=== PATIENT | male | born 1940 | race Caucasian/White ===

== ENCOUNTER 2016-08-21 02:59 | Inpatient (IN) | payer MEDICARE ==
[2016-08-21] VITALS (26 sets, daily range): BP systolic 78–116; BP diastolic 47–65; PULSE 81–93; RESP 15–25; TEMP 97.9–99.3; O2SAT 94–100
[~2016-08-21] VITALS: Ht 182.9 cm; Wt 129.0 kg
[2016-08-21] MEDS ORDERED: SODIUM CHLOR 0.9% 1000 ML INJ 1,000 ML IV SCH (03:03)
[2016-08-21] MEDS ORDERED: SODIUM CHLORIDE 0.9% FLUSH 5 ML FLUSH IVF PRN (03:15)
[2016-08-21] MEDS ORDERED: NOREPINEPHRINE 4 MG/4 ML AMP ONE (03:35)
[2016-08-21 03:38] LABS: AUTOMATED NEUTROPHIL # 11.6 TH/MM3 (1.8-7.7); BASOPHIL % 0.4 % (0.0-2.0); EOSINOPHIL # 0.1 TH/MM3 (0-0.4); EOSINOPHIL % 0.8 % (0.0-4.0); HEMATOCRIT 26.4 % (39.0-51.0); HEMO FLAGS DIFF FINAL; LYMPH % 8.5 % (9.0-44.0); LYMPHOCYTE # 1.2 TH/MM3 (1.0-4.8); MEAN CELL VOLUME 90.7 FL (80.0-100.0); MEAN CORPUSCULAR HEMOGLOBIN 29.9 PG (27.0-34.0); MONO % 5.1 % (0.0-8.0); NEUT % 85.2 % (16.0-70.0); PLATELET COUNT 195 TH/MM3 (150-450); RED BLOOD COUNT 2.91 MIL/MM3 (4.50-5.90); RED CELL DISTRIBUTION WIDTH 17.3 % (11.6-17.2); WHITE BLOOD COUNT 13.7 TH/MM3 (4.0-11.0)
[2016-08-21 03:47] LABS: APTT (PATIENT) 21.2 SEC (24.3-30.1); INTERNATIONAL NORMALIZED RATIO 1.1 RATIO; PROTHROMBIN TIME - PATIENT 12.2 SEC (9.8-11.6)
--- NOTE | 2016-08-21 03:57 | RADRPT ---
EXAM DATE/TIME: 08/21/2016 03:47 [facility] COMPARISON: No previous studies available for comparison. INDICATIONS : Pt short of breath. MEDICAL HISTORY : None. SURGICAL HISTORY : None. ENCOUNTER: Initial ACUITY: 1 day PAIN SCORE: 8/10 LOCATION: Bilateral chest FINDINGS: The cardiac silhouette is normal in transverse diameter. Median sternotomy wires are present. There a re findings of congestive heart failure with interstitial and alveolar opacity bilaterally. A small l eft sided effusion is present. CONCLUSION: 1. Cardiomegaly and findings of congestive heart failure. Vasu Montanez MD on August 21, 2016 at 3:56 Board Certified Radiologist. This report was verified electronically.
[2016-08-21 04:05] LABS: ALT (GPT) 64 U/L (12-78); ANION GAP 7 MEQ/L (5-15); AST (GOT) 23 U/L (15-37); BLOOD UREA NITROGEN 77 MG/DL (7-18); CHLORIDE 114 MEQ/L (98-107); GLOMERULAR FILTRATION RATE 30 ML/MIN (>89); POTASSIUM 4.5 MEQ/L (3.5-5.1); SODIUM (NA) 149 MEQ/L (136-145)
[2016-08-21 04:07] LABS: ALKALINE PHOSPHATASE 73 U/L (45-117); TOTAL BILIRUBIN ADULT 2.4 MG/DL (0.2-1.0)
[2016-08-21] MEDS ORDERED: VITA1000 PO (04:16)
[2016-08-21] MEDS ORDERED: FURO20TA PO (04:16)
[2016-08-21] MEDS ORDERED: XARE20TA PO (04:16)
[2016-08-21] MEDS ORDERED: ATOR10TA15 PO (04:16)
[2016-08-21] MEDS ORDERED: ENAL20TA PO (04:16)
[2016-08-21] MEDS ORDERED: ALLO300T2 PO (04:16)
[2016-08-21] MEDS ORDERED: ASCO500T PO (04:16)
[2016-08-21] MEDS ORDERED: MULT-125 PO (04:16)
[2016-08-21] MEDS ORDERED: AMLO10TA2 PO (04:16)
--- NOTE | 2016-08-21 05:14 | PD ---
HPI Chief Complaint: GI Complaint Time Seen by Provider: 03:03 Travel History International Travel<30 days: No Contact w/Intl Traveler<30days: No Traveled to known affect area: No History of Present Illness HPI Patient 75-year-old male presents emergency department for complaints of blood in the stool. Patient brought in by EMS apparently halfway staff went to check in the patient and found approximately "750 mg" of blood and clots in his diaper. Patient is on Zarrella blood. Apparently the patient was just discharged from a [facility] facility after a heart attack and had just arrived in the halfway yesterday for rehabilitation. Patient is slightly altered on arrival with just some mild confusion. GCS of 14. He is unable to give me his past medical history at this time. PFSH Past Medical History Atrial Fibrillation: Yes Cardiovascular Problems: Yes High Cholesterol: Yes Chest Pain: Yes Congestive Heart Failure: Yes Coronary Artery Disease: Yes Diabetes: Yes Patient Takes Glucophage: No Diminished Hearing: Yes GERD: Yes Gout: Yes Hypertension: Yes Myocardial Infarction: Yes Tetanus Vaccination: Unknown Past Surgical History Appendectomy: Yes Coronary Artery Bypass Graft: Yes Family History Family Myocardial Infarction: Yes Social History Alcohol Use: No Tobacco Use: No Substance Use: No Allergies-Medications (Allergen,Severity, Reaction): Coded Allergies: Cefuroxime sodium (Verified Allergy, Unknown, 08/21/16) Levaquin (Verified Allergy, Unknown, 08/21/16) Reported Meds & Prescriptions Reported Meds & Active Scripts Active Reported Centrum Men (Multiple Vitamins-Minerals) 1 Tab Tab 1 Tab PO DAILY Vitamin D-1000 (Cholecalciferol) 1,000 Unit Tab 1,000 Units PO DAILY Ascorbic Acid 500 Mg Tab 500 Mg PO DAILY Xarelto (Rivaroxaban) 20 Mg Tab 20 Mg PO DAILY Furosemide 20 Mg Tab 20 Mg PO DAILY Enalapril (Enalapril Maleate) 20 Mg Tab 20 Mg PO DAILY Atorvastatin (Atorvastatin Calcium) 10 Mg Tab 10 Mg PO HS Amlodipine (Amlodipine Besylate) 10 Mg Tab 10 Mg PO DAILY Allopurinol 300 Mg Tab 300 Mg PO DAILY Review of Systems Except as stated in HPI: all other systems reviewed are Neg Physical Exam Narrative GENERAL: Well-developed, pale but in no apparent distress. SKIN: Warm and dry. HEAD: Atraumatic. Normocephalic. EYES: Pupils equal and round. No scleral icterus. No injection or drainage. ENT: No nasal bleeding or discharge. Mucous membranes pink and moist. NECK: Trachea midline. No JVD. CARDIOVASCULAR: Regular rate and rhythm. No murmur appreciated. RESPIRATORY: No accessory muscle use. Clear to auscultation. Breath sounds equal bilaterally. GASTROINTESTINAL: Abdomen soft, non-tender, midline distended particularly the left side. Hepatic and splenic margins not palpable. Rectal exam: There is blood and clot at the external anal sphincter. No hemorrhoids are observed. Patient did have bowel movement in the emergency department which was maroon in color. MUSCULOSKELETAL: No obvious deformities. No clubbing. No cyanosis. No edema. NEUROLOGICAL: Awake and alert oriented to self only.. No moves all 4 extremities to command. PSYCHIATRIC: Deferred. Data Data Last Documented VS Vital Signs Date Time Temp Pulse Resp B/P Pulse Ox O2 Delivery O2 Flow Rate FiO2 08/21/16 04:30 82 17 116/53 100 Nasal Cannula 2 08/21/16 04:15 99.2 Orders Complete Blood Count With Diff (08/21/16 03:03) Comprehensive Metabolic Panel (08/21/16 03:03) Lipase (08/21/16 03:03) Lactic Acid (08/21/16 03:03) Prothrombin Time / Inr (Pt) (08/21/16 03:03) Act Partial Throm Time (Ptt) (08/21/16 03:03) Urinalysis - C+S If Indicated (08/21/16 03:03) Iv Access Insert/Monitor (08/21/16 03:03) Ecg Monitoring (08/21/16 03:03) Oximetry (08/21/16 03:03) Sodium Chlor 0.9% 1000 Ml Inj (Ns 1000 M (08/21/16 03:03) Sodium Chloride 0.9% Flush (Ns Flush) (08/21/16 03:15) Electrocardiogram (08/21/16 03:03) Type And Screen (08/21/16 03:03) Red Blood Cells (Rbc) (08/21/16 03:03) Ammonia (08/21/16 03:06) Chest, Single Ap (08/21/16 ) Norepinephrine Inj (Levophed Inj) (08/21/16 03:35) Admit Order (Ed Use Only) (08/21/16 ) Consult Gastroenterology (08/21/16 ) (Hub Use Only)Inp Phy Cons/Ref (08/21/16 ) Labs Laboratory Tests Test 08/21/16 08/21/16 08/21/16 08/21/16 03:15 03:17 03:25 03:48 White Blood Count 13.7 TH/MM3 Red Blood Count 2.91 MIL/MM3 Hemoglobin 8.7 GM/DL Hematocrit 26.4 % Mean Corpuscular Volume 90.7 FL Mean Corpuscular Hemoglobin 29.9 PG Mean Corpuscular Hemoglobin 33.0 % Concent Red Cell Distribution Width 17.3 % Platelet Count 195 TH/MM3 Mean Platelet Volume 9.3 FL Neutrophils (%) (Auto) 85.2 % Lymphocytes (%) (Auto) 8.5 % Monocytes (%) (Auto) 5.1 % Eosinophils (%) (Auto) 0.8 % Basophils (%) (Auto) 0.4 % Neutrophils # (Auto) 11.6 TH/MM3 Lymphocytes # (Auto) 1.2 TH/MM3 Monocytes # (Auto) 0.7 TH/MM3 Eosinophils # (Auto) 0.1 TH/MM3 Basophils # (Auto) 0.0 TH/MM3 CBC Comment DIFF FINAL Differential Comment Prothrombin Time 12.2 SEC Prothromb Time International 1.1 RATIO Ratio Activated Partial 21.2 SEC Thromboplast Time Sodium Level 149 MEQ/L Potassium Level 4.5 MEQ/L Chloride Level 114 MEQ/L Carbon Dioxide Level 28.0 MEQ/L Anion Gap 7 MEQ/L Blood Urea Nitrogen 77 MG/DL Creatinine 2.19 MG/DL Estimat Glomerular Filtration 30 ML/MIN Rate Random Glucose 81 MG/DL Calcium Level 8.0 MG/DL Total Bilirubin 2.4 MG/DL Aspartate Amino Transf 23 U/L (AST/SGOT) Alanine Aminotransferase 64 U/L (ALT/SGPT) Alkaline Phosphatase 73 U/L Total Protein 5.5 GM/DL Albumin 2.5 GM/DL Lipase 560 U/L Blood Type A POSITIVE A POSITIVE Antibody Screen NEGATIVE Crossmatch Leukocyte-Reduced Leukocyte-Reduced Red Blood Red Blood Cells Cells Blood Bank Comment Lactic Acid Level 2.0 mmol/L Ammonia 27 MCMOL/L MDM Medical Decision Making Medical Screen Exam Complete: Yes Emergency Medical Condition: Yes Differential Diagnosis Rectal bleeding, lower GI bleeding, anemia, anticoagulated, hypotensive and, hypovolemic shock. Narrative Course Patient presents with GI bleeding hypotension and mild confusion. After 3 L of normal saline and 2 units of uncrossed blood. Patient's blood pressure is now 115/53. Discussed with Dr. Kramer who will admit. Dr. Steven will also see in consultation. Patient is been typed and crossed for 2 units. Blood pressure remained stable in the emergency department, chest x-ray did show some mild pulmonary edema. He is improved significantly since being in the emergency department. That said ultrasound was performed to examine for active bleeding into his abdomen. No free fluid was seen in the abdomen. CT scan was initially considered but given his creatinine will hold off for the time being. Critical Care Narrative Aggregate critical care time was 30 minutes. Time to perform other separately billable procedures was not included in the critical care time. My time did not include minutes spent treating any other patients simultaneously or on activities that did not directly contribute to the patient's treatment. The services I provided to this patient were to treat and/or prevent clinically significant deterioration that could result in: and disability I provided critical care services requiring my management, as noted below: Chart data review, documentation time, medication orders and management, vital sign assessments/reviewing monitor data, ordering and reviewing lab tests, ordering and interpreting/reviewing x-rays and diagnostic studies, care of the patient and discussion of the patient with the admitting physicians. Diagnosis Primary Impression: Hypovolemic shock Additional Impressions: Lower GI bleeding Anemia Acute kidney injury Anticoagulated Admitting Information Admitting Physician Requests: Admit Condition: Stable Guy Hanson MD Aug 21, 2016 05:14
[2016-08-21] MEDS ORDERED: SODIUM CHLORIDE 0.9% FLUSH 5 ML FLUSH IV FLUSH PRN (05:45)
[2016-08-21] MEDS ORDERED: MISCELLANEOUS NURSING INFORMATION XX SCH (05:45)
[2016-08-21] MEDS ORDERED: CHLORHEXIDINE GLUCONATE 2 % 1 PACK (2 CLOTHS) TOP PRN (05:45)
[2016-08-21] MEDS ORDERED: ONDANSETRON HCL 4 MG/2 ML VIAL IV PRN (05:45)
[2016-08-21] MEDS ORDERED: ACETAMINOPHEN 325 MG TAB PO PRN (05:45)
[2016-08-21] MEDS ORDERED: RESP: ALBUTEROL 2.5 MG/IPRATROPIUM 0.5 MG NEB (PRN) INH (05:45)
[2016-08-21] MEDS: SODIUM CHLOR 0.9% 1000 ML INJ 1,000 ML IV SCH ×2 (08:27→15:54)
[2016-08-21] MEDS: SODIUM CHLORIDE 0.9% FLUSH 5 ML FLUSH IV FLUSH SCH ×2 (08:27→21:15)
--- NOTE | 2016-08-21 08:55 | PD.CONS ---
HPI History of Present Illness This is a 75 year old male who is unable to give any medical history who was brought by EMS from shelter due to rectal bleeding, according to shelter staff, there was "750 mg" of blood and clots in his diaper. Patient is on Xarelto. According to medical chart, the patient was just discharged from a [facility] facility after a heart attack and had just arrived in the shelter yesterday for rehabilitation. Patient was hypotensive on arrival, hgb of 8.7. He has had 2 bloody stools so far, repeat hh not done yet, he has received a total of 2 unit of blood. He is stable now, no other associated symptoms. Patient himself denies nausea, vomiting, abdominal pain, or bleeding. (Garry Esquivel) PFSH Past Medical History Per EMR A-fib CAD high cholesterol Diabetes GERD Gout HTN IN Past Surgical History Per EMR Appendectomy CABG (Garry Esquivel) Coded Allergies: Cefuroxime sodium (Verified Allergy, Severe, Itching, 08/21/16) Levaquin (Verified Allergy, Severe, Itching, 08/21/16) Medications Current Medications Medications (Trade) Dose Ordered Sig/Briseyda Route Start Time Stop Time Status Last Admin (NS 1000 ml Inj) 1,000 ml @ 84 mls/hr [id number] IV 08/21/16 05:33 08/21/16 08:27 (NS Flush) 2 ml UNSCH PRN IV FLUSH 08/21/16 05:45 (NS Flush) 2 ml BID IV FLUSH 08/21/16 09:00 08/21/16 08:27 (Tylenol) 650 mg Q6H PRN PO 08/21/16 05:45 (Morphine Inj) 2 mg Q2H PRN IV 08/21/16 05:45 (Protonix Inj) 40 mg DAILY IV 08/21/16 09:00 08/21/16 08:30 (Zofran Inj) 4 mg Q6H PRN IV 08/21/16 05:45 Miscellaneous Information 1 Q361D XX 08/21/16 05:45 (Chlorhexidine 2% Cloth) 3 pack Taper DAILY@04 TOP 08/22/16 04:00 08/18/17 03:59 (Chlorhexidine 2% Cloth) 3 pack UNSCH PRN TOP 08/21/16 05:45 Family History Non contributory Social History Alcohol Use: No Tobacco Use: No Substance Use: No (Angel Esquivelbertram ALVA) Review of Systems Constitutional: DENIES: Fatigue, Fever, Chills Endocrine: DENIES: Polyuria Eyes: DENIES: Double Vision Ears, nose, mouth, throat: DENIES: Hoarseness Respiratory: DENIES: Shortness of breath Cardiovascular: DENIES: Lower Extremity Edema Gastrointestinal: COMPLAINS OF: Bloody stools, DENIES: Abdominal pain, Black stools, Constipation, Diarrhea, Nausea, Vomiting, Difficulty Swallowing, Anorexia, Odynophagia, Swelling of Abdomen, Heartburn, Hematemesis Genitourinary: DENIES: Hematuria Musculoskeletal: DENIES: Neck pain Integumentary: DENIES: Jaundice Hematologic/lymphatic: DENIES: Lymphadenopathy Immunologic/allergic: DENIES: Eczema Neurologic: DENIES: Abnormal gait Psychiatric: COMPLAINS OF: Confusion (Garry Esquivel) GI Exam Vitals I&O Vital Signs Date Time Temp Pulse Resp B/P Pulse Ox O2 Delivery O2 Flow Rate FiO2 08/21/16 06:20 84 18 114/54 98 Nasal Cannula 2 08/21/16 05:44 100 Nasal Cannula 2.00 08/21/16 04:30 82 17 116/53 100 Nasal Cannula 2 08/21/16 04:15 99.2 82 16 112/53 100 Nasal Cannula 2 08/21/16 03:50 99.2 87 16 110/63 99 Nasal Cannula 2 08/21/16 03:40 99.2 93 16 83/47 98 Nasal Cannula 2 08/21/16 03:06 98.1 90 16 84/62 100 I/O 08/20/16 08/20/16 08/20/16 08/21/16 08/21/16 08/21/16 07:00 15:00 23:00 07:00 15:00 23:00 Intake Total 4400 ml Balance 4400 ml Intake IV Total 3000 ml Packed Cells 1400 ml Imaging Last Impressions Chest X-Ray 08/21/16 0000 Signed Impressions: Service Date/Time: Sunday, August 21, 2016 03:47 - CONCLUSION: 1. Cardiomegaly and findings of congestive heart failure. Vasu Montanez MD Laboratory Test 1/1408/21/16 08/21/16 08/21/16 03:15 03:17 03:25 03:48 White Blood Count 13.7 TH/MM3 Red Blood Count 2.91 MIL/MM3 Hemoglobin 8.7 GM/DL Hematocrit 26.4 % Mean Corpuscular Volume 90.7 FL Mean Corpuscular Hemoglobin 29.9 PG Mean Corpuscular Hemoglobin 33.0 % Concent Red Cell Distribution Width 17.3 % Platelet Count 195 TH/MM3 Mean Platelet Volume 9.3 FL Neutrophils (%) (Auto) 85.2 % Lymphocytes (%) (Auto) 8.5 % Monocytes (%) (Auto) 5.1 % Eosinophils (%) (Auto) 0.8 % Basophils (%) (Auto) 0.4 % Neutrophils # (Auto) 11.6 TH/MM3 Lymphocytes # (Auto) 1.2 TH/MM3 Monocytes # (Auto) 0.7 TH/MM3 Eosinophils # (Auto) 0.1 TH/MM3 Basophils # (Auto) 0.0 TH/MM3 CBC Comment DIFF FINAL Differential Comment Prothrombin Time 12.2 SEC Prothromb Time International 1.1 RATIO Ratio Activated Partial 21.2 SEC Thromboplast Time Sodium Level 149 MEQ/L Potassium Level 4.5 MEQ/L Chloride Level 114 MEQ/L Carbon Dioxide Level 28.0 MEQ/L Anion Gap 7 MEQ/L Blood Urea Nitrogen 77 MG/DL Creatinine 2.19 MG/DL Estimat Glomerular Filtration 30 ML/MIN Rate Random Glucose 81 MG/DL Calcium Level 8.0 MG/DL Total Bilirubin 2.4 MG/DL Aspartate Amino Transf 23 U/L (AST/SGOT) Alanine Aminotransferase 64 U/L (ALT/SGPT) Alkaline Phosphatase 73 U/L Total Protein 5.5 GM/DL Albumin 2.5 GM/DL Lipase 560 U/L Blood Type A POSITIVE A POSITIVE Antibody Screen NEGATIVE Crossmatch Leukocyte-Reduced Leukocyte-Reduced Red Blood Red Blood Cells Cells Blood Bank Comment Lactic Acid Level 2.0 mmol/L Ammonia 27 MCMOL/L Physical Examination HEENT: Pupils round and reactive to light; normocephalic; atraumatic; no jaundice. NECK: Neck is supple, no JVD, no lymphadenopathy. CHEST: Chest is clear to auscultation and percussion. CARDIAC: Regular rate and rhythm with no murmur gallop or rubs. ABDOMEN: Soft, nondistended, nontender; no hepatosplenomegaly; bowel sounds are present in all four quadrants. EXTREMITIES: No clubbing, cyanosis, or edema. SKIN: Normal; no rash; no jaundice. JUNK REMOVAL SPECIALIST: alert and oriented to self (Garry Esquivel) Assessment and Plan Plan - Lower GI bleed- This is a 75 year old male who is unable to give any medical history who was brought by EMS from shelter due to rectal bleeding, according to shelter staff, there was "750 mg" of blood and clots in his diaper. Patient is on Xarelto. According to medical chart, the patient was just discharged from a [facility] facility after a heart attack and had just arrived in the shelter yesterday for rehabilitation. Patient was hypotensive on arrival, hgb of 8.7. He has had 2 bloody stools so far, repeat hh not done yet, he has received a total of 2 unit of blood. He is stable now, no other associated symptoms. Patient himself denies nausea, vomiting, abdominal pain, or bleeding. - Hypovolemic- secondary to acute GI bleed- stable now - CAD, CABG, A-fib, on Xarelto per attending Plan: - Clear liquid - Colonoscopy in the am - Golytely today - NPO mn - Cont. Protonix - Cont. to monitor hh - Transfuse as needed - Cont. to hold Xarelto - Notify GI for active bleed - Supportive care - Patient seen and examined by Dr. Kirkpatrick and myself and this note is written on his behalf. (Garry Esquivel) Physician Comments Patient seen and examined Agree with above Continue with current supportive care Monitor labs. Colonoscopy tomorrow (Serafin Kirkpatrick MD) Garry Esquivel Aug 21, 2016 08:55 Serafin Kirkpatrick MD Aug 21, 2016 19:52
[2016-08-21] MEDS ORDERED: PANTOPRAZOLE SODIUM 40 MG VIAL IV SCH (09:00)
[2016-08-21 09:15] LABS: BACTERIA, URINE RARE /hpf; BLOOD, URINE NEG (NEG); COMMENT (UR) CULT NOT INDICATED; CULTURE IF INDICATED CULT NOT INDICATED; GLUCOSE,URINE NEG (NEG); HYALINE CAST, URINE 1 /lpf (RARE); KETONE, URINE NEG (NEG); MUCUS URINE FEW /lpf (OCC); NITRITE,URINE NEG (NEG); SQUAMOUS EPITHELIAL CELL URINE <1 /hpf (0-5); URINE COLOR YELLOW (YELLW/STRAW)
[2016-08-21 12:48] LABS: HEMATOCRIT 27.9 % (39.0-51.0); REVIEW FLAG FINAL
[2016-08-21] MEDS ORDERED: PEG (High)/E-LYTE SOLN 4000 ML BTL PO ONE (16:00)
--- NOTE | 2016-08-21 16:10 | EKG ---
Date Performed: 08/21/2016 Time Performed: 06:46:27 PTAGE: 75 years EKG: ATRIAL FIBRILLATION SEPTAL MYOCARDIAL INFARCTION Clinical correlation is recommended ABNORM AL ECG NO PREVIOUS TRACING DOCTOR: Barry Deluna Interpretating Date/Time 08/21/2016 16:09:15
--- NOTE | 2016-08-21 16:13 | HHI.HP ---
[facility] Service Critical Care Medicine Primary Care Physician Vasu Tolentino MD Admission Diagnosis GI bleed, Hypovolemic shock Diagnosis: Travel History International Travel<30 Days: No Contact w/Intl Traveler <30 Da: No Traveled to Known Affected Are: No History of Present Illness 75-year-old male presents emergency department for complaints of blood in the stool. long-term staff have found approximately "750 mg" of blood and clots in his diaper. Patient is on Xarelto. He was just discharged from a [place] [facility] facility after a heart attack and had just arrived in the custodial yesterday for rehabilitation. Patient is altered with some mild confusion. Review of Systems ROS Unable to obtain due to confusion Past Family Social History Allergies: Coded Allergies: Cefuroxime sodium (Verified Allergy, Severe, Itching, 08/21/16) Levaquin (Verified Allergy, Severe, Itching, 08/21/16) Past Medical History Atrial Fibrillation High Cholesterol Congestive Heart Failure Coronary Artery Disease Diabetes Diminished Hearing GERD Gout Hypertension Past Surgical History Appendectomy Coronary Artery Bypass Graft Active Ordered Medications Current Medications Medications (Trade) Dose Ordered Sig/Briseyda Route PRN Reason Start Time Stop Time Status Last Admin Dose Admin Sodium Chloride (NS 1000 ml Inj) 1,000 ml @ 84 mls/hr [id number] IV 08/21/16 05:33 08/21/16 15:54 IV Flush (NS Flush) 2 ml UNSCH PRN IV FLUSH FLUSH AFTER USING IV ACCESS 08/21/16 05:45 IV Flush (NS Flush) 2 ml BID IV FLUSH 08/21/16 09:00 08/21/16 08:27 Acetaminophen (Tylenol) 650 mg Q6H PRN PO PAIN 1-5 AND/OR FEVER >101F 08/21/16 05:45 Morphine Sulfate (Morphine Inj) 2 mg Q2H PRN IV PAIN SCALE 6 TO 10 08/21/16 05:45 Pantoprazole Sodium (Protonix Inj) 40 mg DAILY IV 08/21/16 09:00 08/21/16 08:30 Ondansetron HCl (Zofran Inj) 4 mg Q6H PRN IV NAUSEA OR VOMITING 08/21/16 05:45 Miscellaneous Information 1 Q361D XX 08/21/16 05:45 Chlorhexidine Gluconate (Chlorhexidine 2% Cloth) 3 pack Taper DAILY@04 TOP 08/22/16 04:00 08/18/17 03:59 Chlorhexidine Gluconate (Chlorhexidine 2% Cloth) 3 pack UNSCH PRN TOP HYGIENIC CARE 08/21/16 05:45 Family History Myocardial Infarction Social History Alcohol Use: No Tobacco Use: No Substance Use: No Physical Exam Vital Signs Vital Signs Date Time Temp Pulse Resp B/P Pulse Ox O2 Delivery O2 Flow Rate FiO2 08/21/16 13:00 91 19 98/65 97 08/21/16 12:00 86 08/21/16 12:00 97.9 86 25 87/53 98 08/21/16 11:02 96 21 08/21/16 11:00 90 20 90/57 97 08/21/16 11:00 97 Room Air 08/21/16 10:00 82 15 92/59 99 08/21/16 10:00 82 08/21/16 09:00 88 22 81/57 99 08/21/16 08:00 82 08/21/16 08:00 82 17 87/53 100 08/21/16 07:15 99.3 86 17 88/54 100 08/21/16 07:00 100 Nasal Cannula 2.00 08/21/16 06:20 84 18 114/54 98 Nasal Cannula 2 08/21/16 05:44 100 Nasal Cannula 2.00 08/21/16 04:30 82 17 116/53 100 Nasal Cannula 2 08/21/16 04:15 99.2 82 16 112/53 100 Nasal Cannula 2 08/21/16 03:50 99.2 87 16 110/63 99 Nasal Cannula 2 08/21/16 03:40 99.2 93 16 83/47 98 Nasal Cannula 2 08/21/16 03:06 98.1 90 16 84/62 100 Physical Exam GENERAL: Well-nourished, well-developed patient. SKIN: Warm and dry. HEAD: Normocephalic. EYES: No scleral icterus. No injection or drainage. NECK: Supple, trachea midline. No JVD or lymphadenopathy. CARDIOVASCULAR: Regular rate and rhythm without murmurs, gallops, or rubs. RESPIRATORY: Breath sounds equal bilaterally. No accessory muscle use. GASTROINTESTINAL: Abdomen soft, non-tender, nondistended. MUSCULOSKELETAL: No cyanosis, or edema. BACK: Nontender without obvious deformity. No CVA tenderness. Laboratory Laboratory Tests Test 08/21/16 08/21/16 08/21/16 08/21/16 03:15 03:17 03:25 03:48 White Blood Count 13.7 Red Blood Count 2.91 Hemoglobin 8.7 Hematocrit 26.4 Mean Corpuscular Volume 90.7 Mean Corpuscular Hemoglobin 29.9 Mean Corpuscular Hemoglobin 33.0 Concent Red Cell Distribution Width 17.3 Platelet Count 195 Mean Platelet Volume 9.3 Neutrophils (%) (Auto) 85.2 Lymphocytes (%) (Auto) 8.5 Monocytes (%) (Auto) 5.1 Eosinophils (%) (Auto) 0.8 Basophils (%) (Auto) 0.4 Neutrophils # (Auto) 11.6 Lymphocytes # (Auto) 1.2 Monocytes # (Auto) 0.7 Eosinophils # (Auto) 0.1 Basophils # (Auto) 0.0 CBC Comment DIFF FINAL Differential Comment Prothrombin Time 12.2 Prothromb Time International 1.1 Ratio Activated Partial 21.2 Thromboplast Time Sodium Level 149 Potassium Level 4.5 Chloride Level 114 Carbon Dioxide Level 28.0 Anion Gap 7 Blood Urea Nitrogen 77 Creatinine 2.19 Estimat Glomerular Filtration 30 Rate Random Glucose 81 Calcium Level 8.0 Total Bilirubin 2.4 Aspartate Amino Transf 23 (AST/SGOT) Alanine Aminotransferase 64 (ALT/SGPT) Alkaline Phosphatase 73 Total Protein 5.5 Albumin 2.5 Lipase 560 Blood Type A POSITIVE A POSITIVE Antibody Screen NEGATIVE Crossmatch Leukocyte-Reduced Leukocyte-Reduced Red Blood Red Blood Cells Cells Blood Bank Comment Lactic Acid Level 2.0 Ammonia 27 Test 08/21/16 08/21/16 08:40 12:06 Urine Color YELLOW Urine Turbidity CLEAR Urine pH 5.0 Urine Specific Reform 1.011 Urine Protein NEG Urine Glucose (UA) NEG Urine Ketones NEG Urine Occult Blood NEG Urine Nitrite NEG Urine Bilirubin NEG Urine Urobilinogen LESS THAN 2.0 Urine Leukocyte Esterase NEG Urine RBC LESS THAN 1 Urine WBC 2 Urine Squamous Epithelial <1 Cells Urine Bacteria RARE Urine Hyaline Casts 1 Urine Mucus FEW Microscopic Urinalysis Comment CULT NOT INDICATED Nasal Screen MRSA (PCR) NEGATIVE Hemoglobin 9.3 Hematocrit 27.9 Result Diagram: 08/21/16 1206 08/21/16 0315 Assessment and Plan Problem List: (1) Hypovolemic shock ICD Code: R57.1 Status: Acute (2) Anemia ICD Code: D64.9 Status: Acute (3) Lower GI bleeding ICD Code: K92.2 Status: Acute (4) Anticoagulated ICD Code: Z79.01 Status: Acute (5) Acute kidney injury ICD Code: N17.9 Status: Acute Assessment and Plan GI bleed - intestinal/colon ?? - PPI BID - GI for endoscopy - upper and lower - serial H&H Anemia of blood loss - transfuse for hemodynamic instability - transfuse to keep Hg > 8 (recent ACS) CAD - hold anticoagulation due to acute hemophage - supportive care - hold all antiplatelet meds REJI - volume loss - i.v. fluids resuscitation Atrial Fibrillation - rate controlled - resume home meds if hemodynamicaly stable Diabetes - ISS - hold p.o. meds GERD - PPI DVT/GI prophylaxis - TEDs/SCDs/PPI BID Critical Care: The total critical care time was 35 minutes. Time to perform other separately billable procedures was not included in the critical care time. Nathan Ornelas MD Aug 21, 2016 16:13
[2016-08-21 20:46] LABS: HEMATOCRIT 26.6 % (39.0-51.0); REVIEW FLAG FINAL
[2016-08-22] VITALS (27 sets, daily range): BP systolic 82–123; BP diastolic 55–88; PULSE 79–131; RESP 17–24; TEMP 97.9–98.8; O2SAT 98–100
[2016-08-22] MEDS ORDERED: PHENYLEPHRINE HCL 10 MG/ML VIAL ONE ×4 (02:48→05:56)
[2016-08-22] MEDS ORDERED: LIDOCAINE HCL 1% 50 ML VIAL ONE (03:02)
[2016-08-22 03:43] LABS: AUTOMATED NEUTROPHIL # 13.9 TH/MM3 (1.8-7.7); BASOPHIL # 0.1 TH/MM3 (0-0.2); BASOPHIL % 0.4 % (0.0-2.0); EOSINOPHIL # 0.4 TH/MM3 (0-0.4); EOSINOPHIL % 2.4 % (0.0-4.0); HEMATOCRIT 25.8 % (39.0-51.0); LYMPHOCYTE # 2.1 TH/MM3 (1.0-4.8); MEAN CELL VOLUME 88.2 FL (80.0-100.0); MEAN CORPUSCULAR HEMOGLOBIN 29.4 PG (27.0-34.0); MEAN CORPUSCULAR HGB CONC 33.4 % (32.0-36.0); MONO % 5.1 % (0.0-8.0); NEUT % 80.1 % (16.0-70.0); PLATELET COUNT 165 TH/MM3 (150-450); RED BLOOD COUNT 2.92 MIL/MM3 (4.50-5.90); RED CELL DISTRIBUTION WIDTH 16.7 % (11.6-17.2); WHITE BLOOD COUNT 17.3 TH/MM3 (4.0-11.0)
[2016-08-22 03:46] LABS: HEMO FLAGS AUTO DIFF
[2016-08-22] MEDS: CHLORHEXIDINE GLUCONATE 2 % 1 PACK (2 CLOTHS) TOP SCH (04:00)
[2016-08-22] MEDS ORDERED: PROPOFOL 1000 MG/100 ML INJ 100 ML ONE (04:03)
[2016-08-22] MEDS ORDERED: ROCURONIUM INJ 50 MG/5 ML VIAL ONE (04:04)
[2016-08-22] MEDS ORDERED: MIDAZOLAM HCL 5 MG/ML VIAL (1 ML) ONE (04:04)
[2016-08-22 04:17] LABS: ALKALINE PHOSPHATASE 62 U/L (45-117); ALT (GPT) 46 U/L (12-78); ANION GAP 11 MEQ/L (5-15); AST (GOT) 21 U/L (15-37); BICARBONATE 23.6 MEQ/L (21.0-32.0); BLOOD UREA NITROGEN 60 MG/DL (7-18); CHLORIDE 115 MEQ/L (98-107); GLOMERULAR FILTRATION RATE 37 ML/MIN (>89); MAGNESIUM 1.9 MG/DL (1.5-2.5); POTASSIUM 4.4 MEQ/L (3.5-5.1); SODIUM (NA) 150 MEQ/L (136-145); TOTAL BILIRUBIN ADULT 2.3 MG/DL (0.2-1.0)
[2016-08-22] MEDS ORDERED: TERBUTALINE INJ 1 MG/ML AMP SQ PRN (04:30)
--- NOTE | 2016-08-22 04:53 | RADRPT ---
EXAM DATE/TIME: 08/22/2016 03:33 [facility] COMPARISON: CHEST SINGLE AP, August 21, 2016, 3:47. INDICATIONS : Post line placement. MEDICAL HISTORY : None. SURGICAL HISTORY : CABG. ENCOUNTER: Subsequent ACUITY: 2 days PAIN SCORE: Non-responsive. LOCATION: Bilateral chest FINDINGS: The cardiac silhouette is normal in transverse diameter. Median sternotomy wires are present. A right sided internal jugular vein catheter is in place without pneumothorax with its tip in the superior v marc cava. There is subsegmental atelectasis in the left base. CONCLUSION: 1. Uncomplicated line placement. No evidence of pneumothorax. Vasu Montanez MD on August 22, 2016 at 4:51 Board Certified Radiologist. This report was verified electronically.
[2016-08-22 04:55] LABS: ACANTHOCYTES OCC (NORMAL); PLATELET ESTIMATE SMEAR NORMAL (NORMAL); PLATELET MORPHOLOGY NORMAL (NORMAL); SCAN/DIFF AUTO DIFF CONFIRMED; TARGET CELLS 1+ (NORMAL)
--- NOTE | 2016-08-22 05:10 | RADRPT ---
EXAM DATE/TIME: 08/22/2016 04:50 [facility] COMPARISON: CHEST SINGLE AP, August 22, 2016, 3:33. INDICATIONS : Please evaluate ETT placement. MEDICAL HISTORY : None. SURGICAL HISTORY : None. ENCOUNTER: Subsequent ACUITY: 2 days PAIN SCORE: Non-responsive. LOCATION: Bilateral chest FINDINGS: The cardiac silhouette is normal in transverse diameter. Median sternotomy wires are present. Endotra cheal tube is at the tereza and could be retracted 3 cm. There is elevation of the left hemidiaphragm . The lungs are free of acute parenchymal opacity. No effusions are identified. A nasogastric tube is in place with its tip in the stomach. CONCLUSION: 1. Endotracheal tube directly at the tereza. This could be retracted 3 cm Vasu Montanez MD on August 22, 2016 at 5:08 Board Certified Radiologist. This report was verified electronically.
[2016-08-22] MEDS ORDERED: LIDOCAINE HCL 2% 100 MG/5 ML SYRINGE IV PUSH ONE (05:30)
--- NOTE | 2016-08-22 05:32 | PD.PROCEDR ---
Procedure Note Procedure DX: Hypovolemic Shock OP: 1. Intubation (70817) 2. Insertion Right Internal Jugular Central Venous Line (81645) 3. Insertion Right Radial Arterial Line (07369) Procedure: Bag mask ventilation. Versed 5 mg, rocuronium 50 mg iv. Intubated orally with 8.0 tube. Position confirmed with CO2 detection, breath sounds, sats 100%. Right neck prepped and draped. Right internal jugular vein cannulated with ultrasound guidance using micropuncture device. Dilators passed and catheter passed over wire to 18 cm. Lumens aspirated and flushed. Dressing applied. Heladio test intact right hand. Right wrist supinated and 20 gauge needle inserted into radial artery. Cannula passed over needle and good waveform observed. Dressing applied. Circulation to right hand intact after procedure. CXR with ET tube at tereza; withdrawn 2 cm and respiratory therapist notified. Central line in good position suitable for use. Lamont Spear MD Aug 22, 2016 05:32
[2016-08-22 05:39] LABS: BLOOD GAS BASE EXCESS -4.5 mmol/L (-2-2); BLOOD GAS CARBOXYHEMOGLOBIN 1.2 % (0-4); BLOOD GAS HCO3 22 mmol/L (22-26); BLOOD GAS METHEMOGLOBIN 1.3 % (0-2); BLOOD GAS O2 HGB SATURATION 97 % (90-100); BLOOD GAS OXYGEN CONTENT 18.6 Vol % (12.0-20.0); BLOOD GAS PCO2 51 mmHg (38-42); BLOOD GAS PO2 378 mmHg (61-120); BLOOD GAS TOTAL HGB 12.9 G/DL (12.0-16.0); CRITICAL VALUE YES; OXYGEN DEVICE VENTILATOR; TEMP CORR TO 98.6
[2016-08-22 05:40] LABS: DRAW SITE ART LINE; VENT SETTINGS PRVC/AC
[2016-08-22 05:41] LABS: STAT NO
[2016-08-22] MEDS: SODIUM CHLOR 0.9% 1000 ML INJ 1,000 ML IV SCH ×3 (05:47→22:53)
[2016-08-22] MEDS: MAGNESIUM SULFATE 1 GM PREMIX 100 ML IV SCH ×2 (05:47→07:00)
[2016-08-22 06:10] LABS: APTT (PATIENT) 26.7 SEC (24.3-30.1); INTERNATIONAL NORMALIZED RATIO 1.2 RATIO; PROTHROMBIN TIME - PATIENT 13.2 SEC (9.8-11.6)
[2016-08-22] MEDS: METOCLOPRAMIDE HCL 10 MG/2 ML VIAL IV PUSH SCH ×4 (06:12→22:53)
[2016-08-22] MEDS ORDERED: AMIODARONE INJ 450 MG in DEXTROSE 5% IN WATE(EXCEL) INJ 241 ML IV SCH ×2 (06:45)
[2016-08-22] MEDS: PANTOPRAZOLE SODIUM 40 MG VIAL IV SCH ×2 (06:48→16:30)
[2016-08-22] MEDS: fentaNYL DRIP 250 ML IV SCH (06:48)
[2016-08-22] MEDS: PHENYLEPHRINE INJ 160 MG in DEXTROSE 5% IN WATE 500 ML INJ 484 ML IV SCH ×4 (07:30→13:25)
[2016-08-22] MEDS: CHLORHEXIDINE 0.12% (ORAL KIT) 15 ML CUP MT SCH ×2 (08:48→22:52)
[2016-08-22] MEDS: SODIUM CHLORIDE 0.9% FLUSH 5 ML FLUSH IV FLUSH SCH ×2 (09:04→22:53)
[2016-08-22] MEDS: VASOPRESSIN INJ 40 UNITS in DEXTROSE 5% IN WATER 100ML INJ 98 ML IV SCH ×2 (09:30)
[2016-08-22 11:02] LABS: HEMATOCRIT 36.2 % (39.0-51.0); REVIEW FLAG FINAL
[2016-08-22] MEDS ORDERED: MIDAZOLAM HCL 2 MG/2 ML VIAL ONE (11:58)
--- NOTE | 2016-08-22 15:00 | HHI.CCPN ---
Subjective Remarks/Hospital Course 75-year-old male presents emergency department for complaints of blood in the stool. [facility] staff have found approximately "750 mg" of blood and clots in his diaper. Patient is on Xarelto. He was just discharged from a [place] hospital facility after a heart attack and had just [facility] yesterday for [facility]. Patient is altered with some mild confusion. Objective Vital Signs Date Time Temp Pulse Resp B/P Pulse Ox O2 Delivery O2 Flow Rate FiO2 08/22/16 10:22 100 60 08/22/16 06:00 123 21 123/72 08/22/16 04:00 97.9 08/21/16 19:00 Nasal Cannula 2.00 Intake and Output 08/21/16 08/21/16 08/22/16 08:00 16:00 00:00 Intake Total 4400 ml 2986 ml 1718 ml Output Total 900 ml 1075 ml 1025 ml Balance 3500 ml 1911 ml 693 ml Result Diagram: 08/22/16 1045 08/22/16 0325 Other Results Laboratory Tests Test 08/22/16 05:26 Blood Gas Puncture Site ART LINE Blood Gas Patient Temperature 98.6 Blood Gas HCO3 22 mmol/L (22-26) Blood Gas Base Excess -4.5 mmol/L (-2-2) Blood Gas Oxygen Saturation 97 % (90-100) Arterial Blood pH 7.25 (7.380-7.420) Arterial Blood Partial 51 mmHg (38-42) Pressure CO2 Arterial Blood Partial 378 mmHg Pressure O2 (61-120) Arterial Blood Oxygen Content 18.6 Vol % (12.0-20.0) Arterial Blood 1.2 % (0-4) Carboxyhemoglobin Arterial Blood Methemoglobin 1.3 % (0-2) Blood Gas Hemoglobin 12.9 G/DL (12.0-16.0) Oxygen Delivery Device VENTILATOR Blood Gas Ventilator Setting [facility]/AC Objective Remarks GENERAL: Well-nourished, well-developed patient. SKIN: Warm and dry. HEAD: Normocephalic. EYES: No scleral icterus. No injection or drainage. NECK: Supple, trachea midline. No JVD or lymphadenopathy. CARDIOVASCULAR: Regular rate and rhythm without murmurs, gallops, or rubs. RESPIRATORY: Breath sounds equal bilaterally. No accessory muscle use. GASTROINTESTINAL: Abdomen soft, non-tender, nondistended. MUSCULOSKELETAL: No cyanosis, or edema. BACK: Nontender without obvious deformity. No CVA tenderness. A/P Problem List: (1) Hypovolemic shock ICD Code: R57.1 Status: Acute (2) Anemia ICD Code: D64.9 Status: Acute (3) Lower GI bleeding ICD Code: K92.2 Status: Acute (4) Anticoagulated ICD Code: Z79.01 Status: Acute (5) Acute kidney injury ICD Code: N17.9 Status: Acute Assessment and Plan GI bleed - diverticular bleed ?? - PPI BID - GI following - colonoscopy today w/o obvious source of bleed - serial H&H Anemia of blood loss - transfuse for hemodynamic instability - transfuse to keep Hg > 8 (recent ACS) CAD - hold anticoagulation due to acute hemophage - supportive care - hold all antiplatelet meds REJI - volume loss - i.v. fluids resuscitation - monitor electrolytes and renal functions Atrial Fibrillation - rate controlled - resume home meds if hemodynamically stable Diabetes - ISS - hold p.o. meds GERD - PPI DVT/GI prophylaxis - TEDs/SCDs/PPI BID Critical Care: The total critical care time was 35 minutes. Time to perform other separately billable procedures was not included in the critical care time. Nathan Ornelas MD Aug 22, 2016 15:00
[2016-08-22] MEDS: MIDAZOLAM HCL 2 MG/2 ML VIAL IV PUSH PRN ×3 (15:15→19:11)
[2016-08-22 16:03] LABS: HEMATOCRIT 40.9 % (39.0-51.0)
[2016-08-22 16:09] LABS: REVIEW FLAG FINAL
--- NOTE | 2016-08-22 17:15 | PD.PROCEDR ---
GI Procedure REFERRING PHYSICIAN Dr. Spear PROCEDURE PERFORMED Colonoscopy incomplete to the ascending colon with suboptimal prep INDICATION FOR PROCEDURE Acute lower GI bleed PROCEDURE: The procedure, risks and benefits were discussed with Mr. Kovacs and informed consent was obtained. Anesthesia sedated him with Diprivan. He was placed in the left lateral decubitus position. Colonoscopy: The Pentax videoscope was introduced through the rectum and advanced to the ascending colon. Retroflexion was performed in the rectum. Colonic prep was optimal FINDINGS: This colonoscopy was done to evaluate for rectal bleeding I was able to reach the ascending colon and there was not a drop of blood in site and so the scope was then withdrawn I could see relatively recent bleeding in the more distal portions of the colon descending and sigmoid colon but no active bleeding was seen during this procedure the patient was noted to have diverticulosis in both the descending and sigmoid region in the rectum there were solid stools and this was not fully evaluated but again no fresh blood was seen ESTIMATED BLOOD LOSS: None SPECIMENS REMOVED: None COMPLICATIONS: None IMPRESSION: Incomplete colonoscopy to the ascending colon with suboptimal prep Diverticulosis No active bleed PLAN: Continue with current supportive measures Monitor labs and vital signs and transfuse as needed Sreafin Kirkpatrick MD Aug 22, 2016 17:15
[2016-08-22] MEDS: DEXMEDETOMIDINE INJ 50 ML IV SCH (20:22)
[2016-08-22 21:35] LABS: HEMATOCRIT 38.5 % (39.0-51.0)
[2016-08-22 21:42] LABS: REVIEW FLAG FINAL
[2016-08-23] VITALS (18 sets, daily range): BP systolic 98–122; BP diastolic 63–73; PULSE 58–92; RESP 13–20; TEMP 97.3–98.4; O2SAT 97–100
[2016-08-23] MEDS: CHLORHEXIDINE GLUCONATE 2 % 1 PACK (2 CLOTHS) TOP SCH (03:51)
[2016-08-23] MEDS: PROPOFOL 1000 MG/100 ML INJ 100 ML IV SCH ×2 (04:13→04:14)
[2016-08-23] MEDS: SODIUM CHLOR 0.9% 1000 ML INJ 1,000 ML IV SCH ×3 (04:13→20:13)
[2016-08-23 04:24] LABS: BLOOD GAS CARBOXYHEMOGLOBIN 1.1 % (0-4); BLOOD GAS HCO3 22 mmol/L (22-26); BLOOD GAS METHEMOGLOBIN 1.2 % (0-2); BLOOD GAS O2 HGB SATURATION 97 % (90-100); BLOOD GAS OXYGEN CONTENT 17.8 Vol % (12.0-20.0); BLOOD GAS PCO2 39 mmHg (38-42); BLOOD GAS PO2 243 mmHg (61-120); BLOOD GAS TOTAL HGB 12.6 G/DL (12.0-16.0); TEMP CORR TO 98.6
[2016-08-23 04:25] LABS: CRITICAL VALUE NO; DRAW SITE ALINE; FIO2 40 %; OXYGEN DEVICE VENTILATOR; STAT NO; VENT SETTINGS SEE COMMENTS
[2016-08-23] MEDS: VASOPRESSIN INJ 40 UNITS in DEXTROSE 5% IN WATER 100ML INJ 98 ML IV SCH ×6 (04:55→17:32)
[2016-08-23 04:58] LABS: AUTOMATED NEUTROPHIL # 13.3 TH/MM3 (1.8-7.7); BASOPHIL # 0.1 TH/MM3 (0-0.2); BASOPHIL % 0.3 % (0.0-2.0); EOSINOPHIL # 0.4 TH/MM3 (0-0.4); EOSINOPHIL % 2.4 % (0.0-4.0); HEMATOCRIT 35.8 % (39.0-51.0); LYMPH % 8.3 % (9.0-44.0); LYMPHOCYTE # 1.3 TH/MM3 (1.0-4.8); MEAN CELL VOLUME 83.9 FL (80.0-100.0); MEAN CORPUSCULAR HEMOGLOBIN 29.2 PG (27.0-34.0); MEAN CORPUSCULAR HGB CONC 34.8 % (32.0-36.0); MONO % 6.5 % (0.0-8.0); NEUT % 82.5 % (16.0-70.0); PLATELET COUNT 74 TH/MM3 (150-450); RED BLOOD COUNT 4.27 MIL/MM3 (4.50-5.90); RED CELL DISTRIBUTION WIDTH 15.3 % (11.6-17.2); WHITE BLOOD COUNT 16.2 TH/MM3 (4.0-11.0)
[2016-08-23 05:06] LABS: HEMO FLAGS AUTO DIFF
--- NOTE | 2016-08-23 05:19 | RADRPT ---
EXAM DATE/TIME: 08/23/2016 04:16 [facility] COMPARISON: CHEST SINGLE AP, August 22, 2016, 4:50. INDICATIONS : Please evaluate after respiratory failure. MEDICAL HISTORY : None. SURGICAL HISTORY : None. ENCOUNTER: Subsequent ACUITY: 4 - 6 days PAIN SCORE: Non-responsive. LOCATION: Bilateral chest FINDINGS: Endotracheal tube is present with tip today is 3 cm above the teerza. A nasogastric tube descends in the stomach. Right central line is in good position with tip overlying SVC. There is mild left base p arenchymal opacity which may be slightly improved. CONCLUSION: Satisfactory support line and tube positioning. Slight interval improvement in aeration. Uziel Munoz MD on August 23, 2016 at 5:17 Board Certified Radiologist. This report was verified electronically.
[2016-08-23 05:34] LABS: BICARBONATE 22.9 MEQ/L (21.0-32.0); CALCIUM-PROTEIN CORRECTED 8.6 MG/DL (8.5-10.1); MAGNESIUM 1.9 MG/DL (1.5-2.5); POTASSIUM 3.3 MEQ/L (3.5-5.1); TOTAL BILIRUBIN ADULT 2.1 MG/DL (0.2-1.0)
[2016-08-23 05:37] LABS: PLATELET ESTIMATE SMEAR LOW (NORMAL); PLATELET MORPHOLOGY NORMAL (NORMAL); SCAN/DIFF AUTO DIFF CONFIRMED
[2016-08-23] MEDS: METOCLOPRAMIDE HCL 10 MG/2 ML VIAL IV PUSH SCH ×3 (05:38→20:13)
[2016-08-23] MEDS: PANTOPRAZOLE SODIUM 40 MG VIAL IV SCH ×2 (05:38→17:32)
[2016-08-23] MEDS ORDERED: POTASSIUM PHOSPHATE MONOBASIC 500 MG TAB PO/TUBE PRN (07:30)
[2016-08-23] MEDS ORDERED: POTASSIUM CHLOR 20 MEQ PREMIX 100 ML IV PRN ×2 (07:30)
[2016-08-23] MEDS ORDERED: SODIUM PHOSPHATE INJ 30 MMOL in SODIUM CHLOR 0.9% 250 ML INJ 240 ML IV PRN (07:30)
[2016-08-23] MEDS ORDERED: POTASSIUM CL 40 MEQ/30 ML LIQ UDC PO/TUBE PRN ×2 (07:30)
[2016-08-23] MEDS ORDERED: MAGNESIUM SULFATE INJ 4 GM in SODIUM CHLORIDE 0.9% INJ 92 ML IV PRN (07:30)
[2016-08-23] MEDS ORDERED: MAGNESIUM OXIDE 400 MG TAB PO PRN (07:30)
[2016-08-23] MEDS ORDERED: POTASSIUM PHOSPHATE INJ 30 MMOL in SODIUM CHLOR 0.9% 250 ML INJ 250 ML IV PRN (07:30)
[2016-08-23] MEDS ORDERED: POTASSIUM PHOSPHATE MONOBASIC 500 MG TAB PO PRN (07:30)
[2016-08-23] MEDS: CHLORHEXIDINE 0.12% (ORAL KIT) 15 ML CUP MT SCH ×2 (08:10→20:00)
[2016-08-23] MEDS: SODIUM CHLORIDE 0.9% FLUSH 5 ML FLUSH IV FLUSH SCH ×2 (08:20→20:13)
[2016-08-23] MEDS: fentaNYL DRIP 250 ML IV SCH (08:21)
[2016-08-23] MEDS: POTASSIUM CHLOR 40 MEQ PREMIX 100 ML IV PRN (08:21)
--- NOTE | 2016-08-23 09:45 | HHI.GIFU ---
Subjective Remarks Patient is intubated, there is a minimal amount of dark blood in the rectal bag , seems to be old blood. hgb 12.5 today which is stable. (Garry Esquivel) Objective Vitals I&O Vital Signs Date Time Temp Pulse Resp B/P Pulse Ox O2 Delivery O2 Flow Rate FiO2 08/23/16 08:21 100 30 08/23/16 08:21 100 Ventilator 30 08/23/16 06:00 79 08/23/16 04:00 70 08/23/16 04:00 40 08/23/16 04:00 98.0 70 18 101/65 100 08/23/16 03:58 100 40 08/23/16 02:00 58 08/23/16 00:00 98.4 82 18 114/64 100 08/23/16 00:00 40 08/23/16 00:00 100 40 08/23/16 00:00 80 08/22/16 22:00 79 08/22/16 20:05 100 40 08/22/16 20:00 98.2 82 18 109/71 100 08/22/16 20:00 40 08/22/16 20:00 79 08/22/16 19:00 Mechanical Ventilator 08/22/16 18:00 80 18 98/59 100 95/62 08/22/16 18:00 80 08/22/16 17:00 88 18 115/68 99 119/68 08/22/16 16:19 100 40 08/22/16 16:19 100 Mechanical Ventilator 40 08/22/16 16:00 100 Mechanical Ventilator 50 08/22/16 16:00 50 08/22/16 16:00 80 08/22/16 16:00 98.8 80 18 108/69 100 106/61 08/22/16 15:00 97 20 113/68 100 116/70 08/22/16 14:00 83 18 122/71 100 112/65 08/22/16 14:00 83 08/22/16 13:42 100 50 08/22/16 13:00 101 18 118/74 100 107/68 08/22/16 12:00 102 08/22/16 12:00 98 Mechanical Ventilator 60 08/22/16 12:00 97.9 102 24 108/76 98 107/68 08/22/16 12:00 60 08/22/16 11:00 98 23 95/67 100 87/57 08/22/16 10:22 100 60 08/22/16 10:00 87 18 111/66 100 113/66 08/22/16 10:00 87 I/O 08/22/16 08/22/16 08/22/16 08/23/16 08/23/16 08/23/16 07:00 15:00 23:00 07:00 15:00 23:00 Intake Total 3267 ml 4775 ml 1291 ml 1041 ml Output Total 2100 ml 1775 ml 1250 ml 650 ml Balance 1167 ml 3000 ml 41 ml 391 ml Intake Oral 340 ml IV Total 1177 ml 2245 ml 1261 ml 1041 ml Packed Cells 1000 ml 1500 ml Other 750 ml 1030 ml 30 ml Output Urine Total 600 ml 675 ml 950 ml 550 ml Stool Total 100 ml 300 ml 100 ml Gastric Drainage Total 300 ml Estimated Blood Loss 1200 ml 1000 ml # Bowel Movements 5 5 Laboratory Laboratory Tests Test 08/22/16 08/22/16 08/22/16 08/22/16 10:45 15:30 19:03 20:55 Hemoglobin 12.1 13.9 13.5 Hematocrit 36.2 40.9 38.5 Crossmatch Leukocyte-Reduced Red Blood Cells Blood Bank Comment Test 08/23/16 08/23/16 04:13 04:20 Blood Gas Puncture Site JANNIE Blood Gas Patient Temperature 98.6 Blood Gas HCO3 22 Blood Gas Base Excess -3.0 Blood Gas Oxygen Saturation 97 Arterial Blood pH 7.37 Arterial Blood Partial 39 Pressure CO2 Arterial Blood Partial 243 Pressure O2 Arterial Blood Oxygen Content 17.8 Arterial Blood 1.1 Carboxyhemoglobin Arterial Blood Methemoglobin 1.2 Blood Gas Hemoglobin 12.6 Oxygen Delivery Device VENTILATOR Blood Gas Ventilator Setting SEE COMMENTS Blood Gas Inspired Oxygen 40 White Blood Count 16.2 Red Blood Count 4.27 Hemoglobin 12.5 Hematocrit 35.8 Mean Corpuscular Volume 83.9 Mean Corpuscular Hemoglobin 29.2 Mean Corpuscular Hemoglobin 34.8 Concent Red Cell Distribution Width 15.3 Platelet Count 74 Mean Platelet Volume 8.9 Neutrophils (%) (Auto) 82.5 Lymphocytes (%) (Auto) 8.3 Monocytes (%) (Auto) 6.5 Eosinophils (%) (Auto) 2.4 Basophils (%) (Auto) 0.3 Neutrophils # (Auto) 13.3 Lymphocytes # (Auto) 1.3 Monocytes # (Auto) 1.0 Eosinophils # (Auto) 0.4 Basophils # (Auto) 0.1 CBC Comment AUTO DIFF Differential Comment AUTO DIFF CONFIRMED Platelet Estimate LOW Platelet Morphology Comment NORMAL Sodium Level 146 Potassium Level 3.3 Chloride Level 113 Carbon Dioxide Level 22.9 Anion Gap 10 Blood Urea Nitrogen 49 Creatinine 1.65 Estimat Glomerular Filtration 41 Rate Random Glucose 151 Calcium Level 7.2 Protein Corrected Calcium 8.6 Phosphorus Level 3.6 Magnesium Level 1.9 Total Bilirubin 2.1 Aspartate Amino Transf 17 (AST/SGOT) Alanine Aminotransferase 33 (ALT/SGPT) Alkaline Phosphatase 62 Total Protein 4.6 Albumin 2.2 Imaging Last Impressions Chest X-Ray 08/23/16 0600 Signed Impressions: Service Date/Time: Tuesday, August 23, 2016 04:16 - CONCLUSION: Satisfactory support line and tube positioning. Slight interval improvement in aeration. Uziel Munoz MD Physical Exam HEENT:normocephalic; atraumatic. NECK: Neck is supple, no JVD, no lymphadenopathy. CHEST: Chest is clear to auscultation and percussion. CARDIAC: Regular rate and rhythm with no murmur gallop or rubs. ABDOMEN: Soft, nondistended, nontender; no hepatosplenomegaly; bowel sounds are present in all four quadrants. EXTREMITIES: No clubbing, cyanosis, or edema. SKIN: Normal; no rash; no jaundice. 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 diverticular bleed. Today he is intubated, hgb stable at 12.5, no more transfusion since the initial 2 units. some old blood noted in the rectal bag. 08/21/16- This is a 75 year old male who is unable to give any medical history who was brought by EMS from [facility] due to rectal bleeding, according to [facility] staff, there was "750 mg" of blood and clots in his diaper. Patient is on Xarelto. According to medical chart, the patient was just discharged from a [place] facility after a heart attack and had just arrived in the [facility] yesterday for rehabilitation. Patient was hypotensive on arrival, hgb of 8.7. He has had 2 bloody stools so far, repeat hh not done yet, he has received a total of 2 unit of blood. He is stable now, no other associated symptoms. Patient himself denies nausea, vomiting, abdominal pain, or bleeding. - Hypovolemic- secondary to acute GI bleed/intubated - stable now - REJI- due to volume loss secondary to bleeding - CAD, CABG, A-fib, on Xarelto per attending Plan: - TF per recommendation - Cont. Protonix - Cont. to monitor hh - Transfuse as needed - Bleeding scan if actively bleeding - Notify GI for active bleed - Supportive care - Patient seen and examined by Dr. Gilliam and myself and this note is written on his behalf. (Garry Esquivel) Physician Comments Seen and examined with BOX COVERER HAND< no active bleeding. H/H stable. Bleeding scan and angiogram if rebleeds. (Samreen Gilliam MD) Garry Esquivel Aug 23, 2016 09:44 Samreen Gilliam MD Aug 23, 2016 14:12
--- NOTE | 2016-08-23 14:56 | HHI.CCPN ---
Subjective Remarks/Hospital Course 75-year-old male presents emergency department for complaints of blood in the stool. correction staff have found approximately "750 mg" of blood and clots in his diaper. Patient is on Xarelto. He was just discharged from a [place] hospital facility after a heart attack and had just arrived in the skilled nursing yesterday for rehabilitation. Patient is altered with some mild confusion. Objective Vital Signs Date Time Temp Pulse Resp B/P Pulse Ox O2 Delivery O2 Flow Rate FiO2 08/23/16 12:07 30 08/23/16 12:05 98 08/23/16 12:00 80 08/23/16 12:00 98.0 15 115/71 98/73 08/23/16 08:21 Ventilator 08/21/16 19:00 2.00 Intake and Output 08/22/16 08/22/16 08/23/16 08:00 16:00 00:00 Intake Total 3033 ml 4769 ml 1291 ml Output Total 2090 ml 1675 ml 1250 ml Balance 943 ml 3094 ml 41 ml Result Diagram: 08/23/16 0420 08/23/16 0420 Other Results Laboratory Tests Test 08/23/16 04:13 Blood Gas Puncture Site JANNIE Blood Gas Patient Temperature 98.6 Blood Gas HCO3 22 mmol/L (22-26) Blood Gas Base Excess -3.0 mmol/L (-2-2) Blood Gas Oxygen Saturation 97 % (90-100) Arterial Blood pH 7.37 (7.380-7.420) Arterial Blood Partial 39 mmHg (38-42) Pressure CO2 Arterial Blood Partial 243 mmHg Pressure O2 (61-120) Arterial Blood Oxygen Content 17.8 Vol % (12.0-20.0) Arterial Blood 1.1 % (0-4) Carboxyhemoglobin Arterial Blood Methemoglobin 1.2 % (0-2) Blood Gas Hemoglobin 12.6 G/DL (12.0-16.0) Oxygen Delivery Device VENTILATOR Blood Gas Ventilator Setting SEE COMMENTS Blood Gas Inspired Oxygen 40 % Objective Remarks GENERAL: Well-nourished, well-developed patient. SKIN: Warm and dry. HEAD: Normocephalic. EYES: No scleral icterus. No injection or drainage. NECK: Supple, trachea midline. No JVD or lymphadenopathy. CARDIOVASCULAR: Regular rate and rhythm without murmurs, gallops, or rubs. RESPIRATORY: Breath sounds equal bilaterally. No accessory muscle use. GASTROINTESTINAL: Abdomen soft, non-tender, nondistended. MUSCULOSKELETAL: No cyanosis, or edema. BACK: Nontender without obvious deformity. No CVA tenderness. A/P Problem List: (1) Hypovolemic shock ICD Code: R57.1 Status: Acute (2) Anemia ICD Code: D64.9 Status: Acute (3) Lower GI bleeding ICD Code: K92.2 Status: Acute (4) Anticoagulated ICD Code: Z79.01 Status: Acute (5) Acute kidney injury ICD Code: N17.9 Status: Acute Assessment and Plan GI bleed - diverticular bleed ?? - PPI BID - GI following - colonoscopy 08/22 w/o obvious source of bleed - serial H&H - if rebleeds will need colectomy Anemia of blood loss - transfuse for hemodynamic instability - transfuse to keep Hg > 8 (recent ACS) - Hg 12.5 today CAD - hold anticoagulation due to acute hemophage - supportive care - hold all antiplatelet meds Respiratory failure - intubated for an airway protection - SBT today and attempt to extubate Hypotension - blood loss - volume replacement - cardiogenic component? - Norsynephrine to keep MAP > 65 - Vasopressin at 0.04 REJI - volume loss - i.v. fluids resuscitation - monitor electrolytes and renal functions Atrial Fibrillation - rate controlled - resume home meds if hemodynamically stable Diabetes - ISS - hold p.o. meds GERD - PPI DVT/GI prophylaxis - TEDs/SCDs/PPI BID Critical Care: The total critical care time was 35 minutes. Time to perform other separately billable procedures was not included in the critical care time. Nathan Ornelas MD Aug 23, 2016 14:56
[2016-08-23] MEDS: PHENYLEPHRINE INJ 160 MG in DEXTROSE 5% IN WATE 500 ML INJ 484 ML IV SCH ×2 (17:32)
[2016-08-24] VITALS (18 sets, daily range): BP systolic 91–111; BP diastolic 51–65; PULSE 77–97; RESP 13–24; TEMP 97.6–98.8; O2SAT 92–100
[2016-08-24] MEDS ORDERED: RESP: ALBUTEROL 2.5 MG/IPRATROPIUM 0.5 MG NEB (PRN) NEB (01:00)
[2016-08-24] MEDS: RESP: ALBUTEROL 2.5 MG/IPRATROPIUM 0.5 MG NEB (SCH) NEB ×4 (03:36→21:06)
[2016-08-24] MEDS: CHLORHEXIDINE GLUCONATE 2 % 1 PACK (2 CLOTHS) TOP SCH (04:00)
[2016-08-24] MEDS: SODIUM CHLOR 0.9% 1000 ML INJ 1,000 ML IV SCH ×3 (05:05→20:13)
[2016-08-24 05:42] LABS: AUTOMATED NEUTROPHIL # 9.7 TH/MM3 (1.8-7.7); BASOPHIL # 0.1 TH/MM3 (0-0.2); BASOPHIL % 0.6 % (0.0-2.0); EOSINOPHIL # 0.2 TH/MM3 (0-0.4); EOSINOPHIL % 2.1 % (0.0-4.0); HEMATOCRIT 28.7 % (39.0-51.0); LYMPH % 8.5 % (9.0-44.0); MEAN CELL VOLUME 84.5 FL (80.0-100.0); MEAN CORPUSCULAR HEMOGLOBIN 29.4 PG (27.0-34.0); MEAN CORPUSCULAR HGB CONC 34.8 % (32.0-36.0); MONO % 5.6 % (0.0-8.0); NEUT % 83.2 % (16.0-70.0); PLATELET COUNT 81 TH/MM3 (150-450); RED CELL DISTRIBUTION WIDTH 15.6 % (11.6-17.2); WHITE BLOOD COUNT 11.6 TH/MM3 (4.0-11.0)
[2016-08-24 05:55] LABS: HEMO FLAGS AUTO DIFF
[2016-08-24] MEDS: PANTOPRAZOLE SODIUM 40 MG VIAL IV SCH ×2 (06:00→17:48)
[2016-08-24 06:03] LABS: BICARBONATE 20.4 MEQ/L (21.0-32.0); CALCIUM-PROTEIN CORRECTED 8.4 MG/DL (8.5-10.1); MAGNESIUM 1.6 MG/DL (1.5-2.5); POTASSIUM 3.4 MEQ/L (3.5-5.1); TOTAL BILIRUBIN ADULT 2.2 MG/DL (0.2-1.0)
[2016-08-24] MEDS: METOCLOPRAMIDE HCL 10 MG/2 ML VIAL IV PUSH SCH ×3 (06:16→20:12)
[2016-08-24] MEDS: POTASSIUM CHLOR 40 MEQ PREMIX 100 ML IV PRN (06:17)
[2016-08-24] MEDS: CHLORHEXIDINE 0.12% (ORAL KIT) 15 ML CUP MT SCH ×2 (08:00→20:00)
[2016-08-24 08:57] LABS: PLATELET ESTIMATE SMEAR LOW (NORMAL); PLATELET MORPHOLOGY NORMAL (NORMAL)
[2016-08-24 08:58] LABS: SCAN/DIFF AUTO DIFF CONFIRMED
[2016-08-24] MEDS: SODIUM CHLORIDE 0.9% FLUSH 5 ML FLUSH IV FLUSH SCH ×2 (09:04→20:12)
--- NOTE | 2016-08-24 09:29 | HHI.CCPN ---
Subjective Remarks/Hospital Course S/P extubation after hypovolemic shock from major lower GI bleed. He has received 12 units of blood and has now started actively bleeding again for the 3rd time in 72 hours. Objective Vital Signs Date Time Temp Pulse Resp B/P Pulse Ox O2 Delivery O2 Flow Rate FiO2 08/24/16 06:00 93 08/24/16 04:00 97.6 20 105/65 100 08/23/16 20:16 21 08/23/16 16:26 Nasal Cannula 2 Intake and Output 08/23/16 08/23/16 08/24/16 08:00 16:00 00:00 Intake Total 1041 ml 1483 ml 1344 ml Output Total 650 ml 960 ml 1100 ml Balance 391 ml 523 ml 244 ml Result Diagram: 08/24/1651408/24/16514 Objective Remarks GENERAL: Confused SKIN: Warm and dry. HEAD: Normocephalic.. NECK: Supple, airway widely patent. CARDIOVASCULAR: Irreg Irreg, no JVD. RESPIRATORY: Breath sounds equal bilaterally. No wheezes or crackles. GASTROINTESTINAL: Abdomen soft, non-tender, nondistended. BS active. No guarding. MUSCULOSKELETAL: No cyanosis, or edema. Well perfused. NEURO: Confused but conversant. Moves 4 limbs spontaneously. TOM. A/P Problem List: (1) Hypovolemic shock ICD Code: R57.1 Status: Acute (2) Anemia ICD Code: D64.9 Status: Acute (3) Lower GI bleeding ICD Code: K92.2 Status: Acute (4) Anticoagulated ICD Code: Z79.01 Status: Acute (5) Acute kidney injury ICD Code: N17.9 Status: Acute Assessment and Plan GI bleed - probable left colon diverticular bleed ?? - PPI BID - GI following - colonoscopy 08/22 w/o obvious source of bleed, - serial H&H -bleeding again Anemia of blood loss - transfuse for hemodynamic instability - transfuse to keep Hg > 8 (recent ACS) - transfuse 2 units today. CAD - hold anticoagulation due to acute hemophage - supportive care - hold all antiplatelet meds Respiratory failure - intubated for an airway protection - extubated 08/23 Hypotension - blood loss - volume replacement - cardiogenic component? - Norsynephrine to keep MAP > 65 - Vasopressin at 0.04, taper now. REJI - volume loss - i.v. fluids resuscitation - monitor electrolytes and renal functions Atrial Fibrillation - rate controlled - resume home meds when hemodynamically stable, no anticoagulation Diabetes - SSI for euglycemia - hold p.o. meds GERD - PPI DVT/GI prophylaxis - SCDs/PPI BID Overall impression: S/P large lower GI bleed with shock. Still requiring vasopressor support and actively bleeding again. Presently unstable and critically ill having already bled 12 units. Critical Care 48 mins Lamont Spear MD Aug 24, 2016 09:29
[2016-08-24] MEDS ORDERED: SODIUM CHLOR 0.9% 1000 ML INJ 1,000 ML IV ONE (09:30)
[2016-08-24] MEDS ORDERED: ATROPINE SULFATE 1 MG/10 ML SYRINGE ONE (14:15)
[2016-08-24] MEDS ORDERED: EPINEPHrine HCL (1:10,000) 1 MG/10 ML SYRINGE ONE (14:15)
[2016-08-24] MEDS ORDERED: LIDOCAINE HCL 2% 100 MG/5 ML SYRINGE ONE (14:16)
--- NOTE | 2016-08-24 17:21 | RADRPT ---
EXAM DATE/TIME: 08/24/2016 14:53 [facility] COMPARISON: No previous studies available for comparison. INDICATIONS : Rectal bleeding for three days. DOSE: 21 mCi Tc99m Ultratag labeled red blood cells IV IMAGIN hrs MEDICAL HISTORY : Hypertension. Diabetes mellitus type 2. Congestive heart failure. Coronary artery disease, atrial fib rillation and myocardial infarction. SURGICAL HISTORY : Appendectomy. CABG ENCOUNTER: Initial ACUITY: 3 days PAIN SCALE: 0/10 LOCATION: Rectum. TECHNIQUE: Following the modified in vitro labeling of autologous red cells, dynamic continuous images were acqu ired for the specified interval. FINDINGS: BIODISTRIBUTION: There is a very good labeling of red cells without significant uptake in the gastric wall. There is good delineation of the blood pool of the spleen and abdominal vessels. BLEEDING: No episodes of active GI bleeding are observed during specified interval of continuous observation. O n 2 images, the 50 and 55 and image there is a focal area increased activity in the right upper quadr ant. This felt to be artifactual given its appearance on only 2 images. CONCLUSION: A GI bleed is not seen. Uziel Cooper MD on August 24, 2016 at 17:16 Board Certified Radiologist. This report was verified electronically.
[2016-08-24] MEDS: PHENYLEPHRINE INJ 160 MG in DEXTROSE 5% IN WATE 500 ML INJ 484 ML IV SCH ×2 (23:01)
[2016-08-25] VITALS (13 sets, daily range): BP systolic 104–127; BP diastolic 57–76; PULSE 64–89; RESP 16–24; TEMP 98–98.7; O2SAT 94–100
[2016-08-25] MEDS: RESP: ALBUTEROL 2.5 MG/IPRATROPIUM 0.5 MG NEB (SCH) NEB ×4 (03:47→21:58)
[2016-08-25] MEDS: CHLORHEXIDINE GLUCONATE 2 % 1 PACK (2 CLOTHS) TOP SCH (04:00)
[2016-08-25 04:58] LABS: AUTOMATED NEUTROPHIL # 8.1 TH/MM3 (1.8-7.7); BASOPHIL % 0.5 % (0.0-2.0); EOSINOPHIL # 0.3 TH/MM3 (0-0.4); EOSINOPHIL % 2.7 % (0.0-4.0); HEMATOCRIT 30.6 % (39.0-51.0); LYMPH % 8.3 % (9.0-44.0); LYMPHOCYTE # 0.8 TH/MM3 (1.0-4.8); MEAN CELL VOLUME 85.7 FL (80.0-100.0); MEAN CORPUSCULAR HEMOGLOBIN 29.8 PG (27.0-34.0); MEAN CORPUSCULAR HGB CONC 34.7 % (32.0-36.0); NEUT % 82.5 % (16.0-70.0); PLATELET COUNT 82 TH/MM3 (150-450); RED BLOOD COUNT 3.56 MIL/MM3 (4.50-5.90); RED CELL DISTRIBUTION WIDTH 15.4 % (11.6-17.2); WHITE BLOOD COUNT 9.9 TH/MM3 (4.0-11.0)
[2016-08-25 05:01] LABS: HEMO FLAGS DIFF FINAL
[2016-08-25 05:24] LABS: BICARBONATE 21.5 MEQ/L (21.0-32.0); POTASSIUM 3.5 MEQ/L (3.5-5.1)
[2016-08-25 05:43] LABS: CALCIUM-PROTEIN CORRECTED 8.5 MG/DL (8.5-10.1)
[2016-08-25] MEDS: VASOPRESSIN INJ 40 UNITS in DEXTROSE 5% IN WATER 100ML INJ 98 ML IV SCH ×2 (05:54)
[2016-08-25] MEDS: PANTOPRAZOLE SODIUM 40 MG VIAL IV SCH ×2 (05:54→17:01)
[2016-08-25] MEDS: METOCLOPRAMIDE HCL 10 MG/2 ML VIAL IV PUSH SCH ×3 (05:54→20:26)
[2016-08-25] MEDS: POTASSIUM CHLOR 40 MEQ PREMIX 100 ML IV PRN (05:54)
[2016-08-25] MEDS: SODIUM CHLOR 0.9% 1000 ML INJ 1,000 ML IV SCH ×3 (05:56→17:32)
[2016-08-25] MEDS: CHLORHEXIDINE 0.12% (ORAL KIT) 15 ML CUP MT SCH ×2 (07:42→20:00)
[2016-08-25] MEDS: SODIUM CHLORIDE 0.9% FLUSH 5 ML FLUSH IV FLUSH SCH ×2 (09:23→20:26)
[2016-08-25] MEDS: DEXMEDETOMIDINE INJ 50 ML IV SCH ×5 (10:36→20:26)
[2016-08-26] VITALS (14 sets, daily range): BP systolic 76–120; BP diastolic 52–69; PULSE 66–91; RESP 20–23; TEMP 97.7–98.5; O2SAT 94–100
[2016-08-26] MEDS: DEXMEDETOMIDINE INJ 50 ML IV SCH ×5 (02:21→22:05)
[2016-08-26] MEDS: VASOPRESSIN INJ 40 UNITS in DEXTROSE 5% IN WATER 100ML INJ 98 ML IV SCH ×2 (02:21)
[2016-08-26] MEDS: RESP: ALBUTEROL 2.5 MG/IPRATROPIUM 0.5 MG NEB (SCH) NEB ×4 (03:27→20:58)
[2016-08-26] MEDS: CHLORHEXIDINE GLUCONATE 2 % 1 PACK (2 CLOTHS) TOP SCH (04:00)
[2016-08-26] MEDS: SODIUM CHLOR 0.9% 1000 ML INJ 1,000 ML IV SCH ×3 (05:05→20:33)
[2016-08-26] MEDS: METOCLOPRAMIDE HCL 10 MG/2 ML VIAL IV PUSH SCH ×3 (05:47→22:05)
[2016-08-26] MEDS: PANTOPRAZOLE SODIUM 40 MG VIAL IV SCH ×2 (05:48→17:56)
[2016-08-26] MEDS: CHLORHEXIDINE 0.12% (ORAL KIT) 15 ML CUP MT SCH ×2 (08:00→20:00)
[2016-08-26] MEDS: SODIUM CHLORIDE 0.9% FLUSH 5 ML FLUSH IV FLUSH SCH ×2 (08:54→20:33)
--- NOTE | 2016-08-26 14:01 | HHI.CCPN ---
Subjective Remarks/Hospital Course note for 08/25/16: S/P extubation after hypovolemic shock from major lower GI bleed. He has received 12 units of blood and has now started actively bleeding again for the 3rd time in 72 hours. 08/25: Bled again last night, now stable. Tagged red cell study does not show a source. Objective Vital Signs Date Time Temp Pulse Resp B/P Pulse Ox O2 Delivery O2 Flow Rate FiO2 08/26/16 12:00 98.3 77 20 120/59 94 08/26/16 10:12 Nasal Cannula 2.00 08/24/16 21:06 21 Intake and Output 08/25/16 08/25/16 08/26/16 08:00 16:00 00:00 Intake Total 1021 ml 1148 ml 1643 ml Output Total 600 ml 650 ml 750 ml Balance 421 ml 498 ml 893 ml Result Diagram: 08/25/1639908/25/16399 Objective Remarks GENERAL: Confused SKIN: Warm and dry. HEAD: Normocephalic.. NECK: Supple, airway widely patent. CARDIOVASCULAR: Irreg Irreg, no JVD. Rate controlled. RESPIRATORY: Breath sounds equal bilaterally. GASTROINTESTINAL: Abdomen soft, non-tender, nondistended. BS active. No guarding. MUSCULOSKELETAL: No cyanosis, or edema. Well perfused. NEURO: Conversant. Moves 4 limbs spontaneously. TOM. A/P Problem List: (1) Hypovolemic shock ICD Code: R57.1 Status: Acute (2) Anemia ICD Code: D64.9 Status: Acute (3) Lower GI bleeding ICD Code: K92.2 Status: Acute (4) Anticoagulated ICD Code: Z79.01 Status: Acute (5) Acute kidney injury ICD Code: N17.9 Status: Acute Assessment and Plan GI bleed - probable left colon diverticular bleed ?? - PPI BID - GI following - colonoscopy 08/22 w/o obvious source of bleed, - serial H&H -bleeding again Anemia of blood loss - transfuse for hemodynamic instability - transfuse to keep Hg > 8 (recent ACS) - transfuse 2 units today. CAD - hold anticoagulation due to acute hemophage - supportive care - hold all antiplatelet meds Respiratory failure - intubated for an airway protection - extubated 08/23 Hypotension - blood loss - volume replacement - cardiogenic component? - Norsynephrine to keep MAP > 65 - Vasopressin at 0.04, taper now. REJI - volume loss - i.v. fluids resuscitation - monitor electrolytes and renal functions Atrial Fibrillation - rate controlled - resume home meds when hemodynamically stable, no anticoagulation Diabetes - SSI for euglycemia - hold p.o. meds GERD - PPI DVT/GI prophylaxis - SCDs/PPI BID Overall impression: Stable hemodynamics today, no bleeding. Lamont Spear MD Aug 26, 2016 14:01
--- NOTE | 2016-08-26 14:05 | HHI.CCPN ---
Subjective Remarks/Hospital Course note for 08/26/16: S/P extubation after hypovolemic shock from major lower GI bleed. He has received 12 units of blood and has now started actively bleeding again for the 3rd time in 72 hours. 08/25: Bled again last night, now stable. Tagged red cell study does not show a source. 08/26: Stable hemodynamics and Hgb, No bleeding. Objective Vital Signs Date Time Temp Pulse Resp B/P Pulse Ox O2 Delivery O2 Flow Rate FiO2 08/26/16 12:00 98.3 77 20 120/59 94 08/26/16 10:12 Nasal Cannula 2.00 08/24/16 21:06 21 Intake and Output 08/25/16 08/25/16 08/26/16 08:00 16:00 00:00 Intake Total 1021 ml 1148 ml 1643 ml Output Total 600 ml 650 ml 750 ml Balance 421 ml 498 ml 893 ml Result Diagram: 08/25/16 0400 08/25/16 0400 Objective Remarks GENERAL: Confused SKIN: Warm and dry. HEAD: Normocephalic.. NECK: Supple, airway widely patent. CARDIOVASCULAR: Irreg Irreg, no JVD. Rate controlled. RESPIRATORY: Breath sounds equal bilaterally. GASTROINTESTINAL: Abdomen soft, non-tender, nondistended. BS active. No guarding. MUSCULOSKELETAL: No cyanosis, or edema. Well perfused. NEURO: Conversant. Moves 4 limbs spontaneously. TOM. A/P Problem List: (1) Hypovolemic shock ICD Code: R57.1 Status: Acute (2) Anemia ICD Code: D64.9 Status: Acute (3) Lower GI bleeding ICD Code: K92.2 Status: Acute (4) Anticoagulated ICD Code: Z79.01 Status: Acute (5) Acute kidney injury ICD Code: N17.9 Status: Acute Assessment and Plan GI bleed - probable left colon diverticular bleed ?? - PPI BID - GI following - colonoscopy 08/22 w/o obvious source of bleed, - serial H&H -bleeding again, now stopped for 36 hours. Anemia of blood loss - transfuse for hemodynamic instability - transfuse to keep Hg > 8 (recent ACS) - transfuse 2 units, total 12 CAD - hold anticoagulation due to acute hemophage - supportive care - hold all antiplatelet meds Respiratory failure - intubated for an airway protection - extubated 08/23 Hypotension - blood loss - volume replacement - cardiogenic component? - Norsynephrine to keep MAP > 65 - Vasopressin at 0.04, taper now. REJI - volume loss - i.v. fluids resuscitation - monitor electrolytes and renal functions Atrial Fibrillation - rate controlled - resume home meds when hemodynamically stable, no anticoagulation Diabetes - SSI for euglycemia - hold p.o. meds GERD - PPI DVT/GI prophylaxis - SCDs/PPI BID Overall impression: Stable hemodynamics today, no bleeding. Lamont Spear MD Aug 26, 2016 14:05
[2016-08-27] VITALS (14 sets, daily range): BP systolic 115–156; BP diastolic 63–96; PULSE 69–86; RESP 19–26; TEMP 97.6–98.3; O2SAT 67–100
[2016-08-27] MEDS: RESP: ALBUTEROL 2.5 MG/IPRATROPIUM 0.5 MG NEB (SCH) NEB ×4 (03:29→20:54)
[2016-08-27] MEDS: DEXMEDETOMIDINE INJ 50 ML IV SCH ×5 (03:30→21:14)
[2016-08-27] MEDS: CHLORHEXIDINE GLUCONATE 2 % 1 PACK (2 CLOTHS) TOP SCH (04:00)
[2016-08-27] MEDS: PANTOPRAZOLE SODIUM 40 MG VIAL IV SCH ×2 (05:34→16:48)
[2016-08-27] MEDS: METOCLOPRAMIDE HCL 10 MG/2 ML VIAL IV PUSH SCH ×3 (05:34→21:14)
[2016-08-27] MEDS: VASOPRESSIN INJ 40 UNITS in DEXTROSE 5% IN WATER 100ML INJ 98 ML IV SCH ×2 (05:35)
[2016-08-27] MEDS: SODIUM CHLOR 0.9% 1000 ML INJ 1,000 ML IV SCH ×3 (05:35→21:19)
[2016-08-27 06:00] LABS: AUTOMATED NEUTROPHIL # 7.5 TH/MM3 (1.8-7.7); BASOPHIL % 0.4 % (0.0-2.0); EOSINOPHIL # 0.4 TH/MM3 (0-0.4); EOSINOPHIL % 4.1 % (0.0-4.0); HEMATOCRIT 23.8 % (39.0-51.0); HEMO FLAGS DIFF FINAL; LYMPH % 7.6 % (9.0-44.0); LYMPHOCYTE # 0.7 TH/MM3 (1.0-4.8); MEAN CELL VOLUME 87.9 FL (80.0-100.0); MEAN CORPUSCULAR HEMOGLOBIN 30.4 PG (27.0-34.0); MEAN CORPUSCULAR HGB CONC 34.6 % (32.0-36.0); MONO % 5.2 % (0.0-8.0); NEUT % 82.7 % (16.0-70.0); PLATELET COUNT 106 TH/MM3 (150-450); RED BLOOD COUNT 2.71 MIL/MM3 (4.50-5.90); RED CELL DISTRIBUTION WIDTH 15.9 % (11.6-17.2); WHITE BLOOD COUNT 9.1 TH/MM3 (4.0-11.0)
[2016-08-27] MEDS: CHLORHEXIDINE 0.12% (ORAL KIT) 15 ML CUP MT SCH ×2 (08:00→20:00)
[2016-08-27] MEDS: SODIUM CHLORIDE 0.9% FLUSH 5 ML FLUSH IV FLUSH SCH ×2 (08:17→21:13)
--- NOTE | 2016-08-27 14:32 | HHI.PR ---
Subjective Remarks Patient stable in bed, he is worried about having cancer "do I have cancer? " Patient afebrile, no chest pain or short of breath Objective Vitals Vital Signs Date Time Temp Pulse Resp B/P Pulse Ox O2 Delivery O2 Flow Rate FiO2 08/27/16 14:00 76 08/27/16 12:00 70 08/27/16 12:00 97.8 72 21 140/65 93 08/27/16 10:00 80 08/27/16 08:23 94 Nasal Cannula 3.00 08/27/16 08:00 76 08/27/16 08:00 97.9 86 23 156/96 97 08/27/16 06:00 75 08/27/16 04:00 79 08/27/16 04:00 98.3 79 22 116/63 97 08/27/16 02:00 75 08/27/16 00:00 97.9 75 19 115/66 99 08/27/16 00:00 75 08/26/16 22:00 70 08/26/16 20:59 95 Nasal Cannula 2.00 08/26/16 20:00 69 08/26/16 20:00 97.7 74 23 104/61 96 08/26/16 18:00 91 08/26/16 16:00 98.2 74 23 76/52 94 08/26/16 16:00 88 I/O 08/26/16 08/26/16 08/26/16 08/27/16 08/27/16 08/27/16 07:00 15:00 23:00 07:00 15:00 23:00 Intake Total 644 ml 1315 ml 1603 ml 632 ml 1691 ml Output Total 700 ml 700 ml 600 ml 850 ml 650 ml Balance -56 ml 615 ml 1003 ml -218 ml 1041 ml Intake Oral 0 ml 240 ml IV Total 644 ml 1315 ml 1603 ml 632 ml 1451 ml Output Urine Total 700 ml 700 ml 600 ml 850 ml 650 ml # Bowel Movements 0 0 1 Result Diagram: 08/27/16 0510 08/25/16 0400 Objective Remarks GENERAL: This is a well-nourished, well-developed patient, in no apparent distress. SKIN: No rashes, warm and dry HEAD: Atraumatic. Normocephalic. EYES: Pupils equal round and reactive. Extraocular motions intact. No scleral icterus. ENT: Nose without bleeding, or drainage, Airway patent. NECK: Trachea midline. Supple CARDIOVASCULAR: Irregularly irregular no murmurs, gallops, or rubs. RESPIRATORY: Fair air entry bilaterally. No wheezes, rales, or rhonchi. GASTROINTESTINAL: Abdomen soft, non-tender, nondistended. Positive bowel sounds MUSCULOSKELETAL: Extremities without clubbing, cyanosis, or edema. Pedal pulses appreciated NEUROLOGICAL: Awake and alert. Moves all extremity. Normal speech.no focal neurological deficit A/P Assessment and Plan S/P extubation after hypovolemic shock from major lower GI bleed. He has received 12 units of blood and has now started actively bleeding again for the 3rd time in 72 hours. 08/25: Bled again last night, now stable. Tagged red cell study does not show a source. 08/26: Stable hemodynamics and Hgb, No bleeding. 08/27: Stable, no signs of bleeding A/P: GI bleed - probable left colon diverticular bleed ?? - PPI BID - GI following - colonoscopy 08/22 w/o obvious source of bleed, - serial H&H -Bleeding scan showed no source of bleeding Anemia of blood loss - transfuse for hemodynamic instability - transfuse to keep Hg > 8 (recent ACS) - transfuse 2 units, total 12 CAD - hold anticoagulation due to acute hemophage - supportive care - hold all antiplatelet meds Respiratory failure - intubated for an airway protection - extubated 08/23 Hypotension>> improved - blood loss - volume replacement REJI - volume loss - i.v. fluids resuscitation - monitor electrolytes and renal functions Atrial Fibrillation - rate controlled - resume home meds when hemodynamically stable, no anticoagulation Diabetes - SSI for euglycemia - hold p.o. meds GERD - PPI DVT/GI prophylaxis - SCDs/PPI BID Brock Kapoor MD Aug 27, 2016 14:31 Brock Kapoor MD Aug 27, 2016 14:31
[2016-08-28] VITALS (15 sets, daily range): BP systolic 109–147; BP diastolic 53–69; PULSE 73–106; RESP 21–24; TEMP 96.6–98; O2SAT 92–97
[2016-08-28] MEDS: RESP: ALBUTEROL 2.5 MG/IPRATROPIUM 0.5 MG NEB (SCH) NEB (03:22)
[2016-08-28] MEDS: DEXMEDETOMIDINE INJ 50 ML IV SCH ×4 (03:34→11:57)
[2016-08-28] MEDS: CHLORHEXIDINE GLUCONATE 2 % 1 PACK (2 CLOTHS) TOP SCH (04:00)
[2016-08-28 05:46] LABS: AUTOMATED NEUTROPHIL # 4.8 TH/MM3 (1.8-7.7); BASOPHIL % 0.3 % (0.0-2.0); BICARBONATE 20.4 MEQ/L (21.0-32.0); EOSINOPHIL # 0.2 TH/MM3 (0-0.4); EOSINOPHIL % 4.2 % (0.0-4.0); LYMPH % 7.8 % (9.0-44.0); LYMPHOCYTE # 0.5 TH/MM3 (1.0-4.8); MEAN CELL VOLUME 88.8 FL (80.0-100.0); MEAN CORPUSCULAR HEMOGLOBIN 30.2 PG (27.0-34.0); MONO % 5.8 % (0.0-8.0); NEUT % 81.9 % (16.0-70.0); PLATELET COUNT 98 TH/MM3 (150-450); POTASSIUM 3.3 MEQ/L (3.5-5.1); RED BLOOD COUNT 2.48 MIL/MM3 (4.50-5.90); WHITE BLOOD COUNT 5.8 TH/MM3 (4.0-11.0)
[2016-08-28] MEDS: PANTOPRAZOLE SODIUM 40 MG VIAL IV SCH ×2 (05:59→19:10)
[2016-08-28] MEDS: METOCLOPRAMIDE HCL 10 MG/2 ML VIAL IV PUSH SCH ×3 (05:59→22:53)
[2016-08-28] MEDS: SODIUM CHLOR 0.9% 1000 ML INJ 1,000 ML IV SCH (06:00)
[2016-08-28 06:16] LABS: HEMO FLAGS DIFF FINAL
[2016-08-28] MEDS: CHLORHEXIDINE 0.12% (ORAL KIT) 15 ML CUP MT SCH ×2 (08:00→20:00)
[2016-08-28] MEDS: SODIUM CHLORIDE 0.9% FLUSH 5 ML FLUSH IV FLUSH SCH ×2 (09:00→21:00)
--- NOTE | 2016-08-28 12:22 | HHI.PR ---
Subjective Remarks in bed confused , dont seem to be in acute distress hb still dropping , afebrile Objective Vitals Vital Signs Date Time Temp Pulse Resp B/P Pulse Ox O2 Delivery O2 Flow Rate FiO2 08/28/16 10:00 74 08/28/16 08:00 74 08/28/16 07:42 95 Nasal Cannula 2.00 08/28/16 06:00 75 08/28/16 04:00 97.7 80 24 125/58 94 08/28/16 04:00 80 08/28/16 02:00 81 08/28/16 00:00 98.0 73 21 147/65 94 08/27/16 22:00 76 08/27/16 20:57 98 Nasal Cannula 2.00 08/27/16 20:00 83 08/27/16 20:00 97.6 83 26 137/65 100 08/27/16 18:00 86 08/27/16 16:00 69 08/27/16 16:00 97.6 73 24 155/67 67 08/27/16 14:00 76 I/O 08/27/16 08/27/16 08/27/16 08/28/16 08/28/16 08/28/16 07:00 15:00 23:00 07:00 15:00 23:00 Intake Total 632 ml 1691 ml 1110 ml 1248 ml Output Total 850 ml 650 ml 400 ml 350 ml Balance -218 ml 1041 ml 710 ml 898 ml Intake Oral 240 ml IV Total 632 ml 1451 ml 1110 ml 1248 ml Output Urine Total 850 ml 650 ml 400 ml 350 ml # Bowel Movements 1 0 0 Result Diagram: 08/28/16 0505 08/28/16 0505 Objective Remarks GENERAL: This is a well-nourished, well-developed patient, in no apparent distress. SKIN: No rashes, warm and dry HEAD: Atraumatic. Normocephalic. EYES: Pupils equal round and reactive. Extraocular motions intact. No scleral icterus. ENT: Nose without bleeding, or drainage, Airway patent. NECK: Trachea midline. Supple CARDIOVASCULAR: Irregularly irregular no murmurs, gallops, or rubs. RESPIRATORY: Fair air entry bilaterally. No wheezes, rales, or rhonchi. GASTROINTESTINAL: Abdomen soft, non-tender, nondistended. Positive bowel sounds MUSCULOSKELETAL: Extremities without clubbing, cyanosis, or edema. Pedal pulses appreciated NEUROLOGICAL: Awake and alert. Moves all extremity. Normal speech.no focal neurological deficit A/P Assessment and Plan S/P extubation after hypovolemic shock from major lower GI bleed. He has received 12 units of blood and has now started actively bleeding again for the 3rd time in 72 hours. 08/25: Bled again last night, now stable. Tagged red cell study does not show a source. 08/26: Stable hemodynamics and Hgb, No bleeding. 08/27: Stable, no signs of bleeding 08/28: Hemoglobin continued to drop 7.8 today, will repeat at 1800, if less than 7 will transfuse and notify GI Hypernatremia with hypokalemia>> change iv fluid to half-normal saline with KCl at 80 cc/h for 1500 , repeat BMP at 1800 and in a.m. A/P: GI bleed - probable left colon diverticular bleed ?? - PPI BID - GI following - colonoscopy 08/22 w/o obvious source of bleed, - serial H&H -Bleeding scan showed no source of bleeding Anemia of blood loss - transfuse for hemodynamic instability - transfuse to keep Hg > 8 (recent ACS) - transfuse 2 units, total 12 CAD - hold anticoagulation due to acute hemophage - supportive care - hold all antiplatelet meds Respiratory failure - intubated for an airway protection - extubated 08/23 Hypotension>> improved - blood loss - volume replacement REJI - volume loss - i.v. fluids resuscitation - monitor electrolytes and renal functions Atrial Fibrillation - rate controlled - resume home meds when hemodynamically stable, no anticoagulation Diabetes - SSI for euglycemia - hold p.o. meds GERD - PPI DVT/GI prophylaxis - SCDs/PPI BID Brock Kapoor MD Aug 28, 2016 12:22
[2016-08-28] MEDS: 1/2 NS + KCL 20 MEQ INJ 1,000 ML IV SCH (13:07)
--- NOTE | 2016-08-28 16:34 | HHI.GIFU ---
GI Follow-up Note Consult Follow-up Subjective: Patient laying in bed comfortably, no new complaints except BRBPR Objective: PHYSICAL EXAMINATION: Vitals signs stable No fever HEENT: Pupils round and reactive to light; normocephalic; atraumatic; no jaundice. Throat is clear. NECK: Neck is supple, no JVD, no lymphadenopathy. CHEST: Chest is clear to auscultation and percussion. CARDIAC: Regular rate and rhythm with no murmur gallop or rubs. ABDOMEN: Soft, nondistended, nontender; no hepatosplenomegaly; bowel sounds are present in all four quadrants. EXTREMITIES: No clubbing, cyanosis, or edema. SKIN: Normal; no rash; no jaundice. SHREDDER PICKER: No focal deficits; alert and oriented times three. Available Data (labs, X- Rays, Procedues) : Last Impressions GI Bleed Scan Nuclear Medicine 08/24/16 0000 Signed Impressions: Service Date/Time: Wednesday, August 24, 2016 14:53 - CONCLUSION: A GI bleed is not seen. Uziel Cooper MD Chest X-Ray 08/23/16 0600 Signed Impressions: Service Date/Time: Tuesday, August 23, 2016 04:16 - CONCLUSION: Satisfactory support line and tube positioning. Slight interval improvement in aeration. Uziel Munoz MD Laboratory Tests Test 08/27/16 08/28/16 05:10 05:05 White Blood Count 9.1 TH/MM3 5.8 TH/MM3 Red Blood Count 2.71 MIL/MM3 2.48 MIL/MM3 Hemoglobin 8.2 GM/DL 7.5 GM/DL Hematocrit 23.8 % 22.0 % Mean Corpuscular Volume 87.9 FL 88.8 FL Mean Corpuscular Hemoglobin 30.4 PG 30.2 PG Mean Corpuscular Hemoglobin 34.6 % 34.0 % Concent Red Cell Distribution Width 15.9 % 16.0 % Platelet Count 106 TH/MM3 98 TH/MM3 Mean Platelet Volume 8.3 FL 8.7 FL Neutrophils (%) (Auto) 82.7 % 81.9 % Lymphocytes (%) (Auto) 7.6 % 7.8 % Monocytes (%) (Auto) 5.2 % 5.8 % Eosinophils (%) (Auto) 4.1 % 4.2 % Basophils (%) (Auto) 0.4 % 0.3 % Neutrophils # (Auto) 7.5 TH/MM3 4.8 TH/MM3 Lymphocytes # (Auto) 0.7 TH/MM3 0.5 TH/MM3 Monocytes # (Auto) 0.5 TH/MM3 0.3 TH/MM3 Eosinophils # (Auto) 0.4 TH/MM3 0.2 TH/MM3 Basophils # (Auto) 0.0 TH/MM3 0.0 TH/MM3 CBC Comment DIFF FINAL DIFF FINAL Differential Comment Sodium Level 153 MEQ/L Potassium Level 3.3 MEQ/L Chloride Level 122 MEQ/L Carbon Dioxide Level 20.4 MEQ/L Anion Gap 11 MEQ/L Blood Urea Nitrogen 23 MG/DL Creatinine 1.33 MG/DL Estimat Glomerular Filtration 53 ML/MIN Rate Random Glucose 113 MG/DL Calcium Level 7.6 MG/DL Allergies Coded Allergies Type Severity Reaction Last Updated Verified Cefuroxime sodium Allergy Severe Itching 08/21/16 Yes Levaquin Allergy Severe Itching 08/21/16 Yes Active Scripts Medications Dose Route/Sig Days Date Category Centrum Men (Multiple Vitamins-Minerals) 1 Tab Tab 1 Tab PO DAILY 08/21/16 Reported Vitamin D-1000 (Cholecalciferol) 1,000 Unit Tab 1,000 Units PO DAILY 08/21/16 Reported Ascorbic Acid 500 Mg Tab 500 Mg PO DAILY 08/21/16 Reported Xarelto (Rivaroxaban) 20 Mg Tab 20 Mg PO DAILY 08/21/16 Reported Furosemide 20 Mg Tab 20 Mg PO DAILY 08/21/16 Reported Enalapril (Enalapril Maleate) 20 Mg Tab 20 Mg PO DAILY 08/21/16 Reported Atorvastatin (Atorvastatin Calcium) 10 Mg Tab 10 Mg PO HS 08/21/16 Reported Amlodipine (Amlodipine Besylate) 10 Mg Tab 10 Mg PO DAILY 08/21/16 Reported Allopurinol 300 Mg Tab 300 Mg PO DAILY 08/21/16 Reported ASSESSMENT/PLAN: Reconsulted for recurrent gib, STAT H/H, STAT angiogram with embolization. NPO. Discussed with pt. and nurse. IF angiogram/bleeding scan -ve repeat colonoscopy next week. Thank you. It was a pleasure seeing Vasu Kovacs Thank you for this consult. Entered by: Samreen Odonnell MD Aug 28, 2016 16:34
[2016-08-28 17:27] LABS: BICARBONATE 21.3 MEQ/L (21.0-32.0); MAGNESIUM 1.5 MG/DL (1.5-2.5); POTASSIUM 3.9 MEQ/L (3.5-5.1)
[2016-08-28 17:37] LABS: REVIEW FLAG FINAL
[2016-08-28 17:39] LABS: CALCIUM-PROTEIN CORRECTED 8.7 MG/DL (8.5-10.1)
[2016-08-28] MEDS ORDERED: MIDAZOLAM HCL 5 MG/5 ML VIAL ONE (17:44)
[2016-08-28] MEDS ORDERED: fentaNYL CITRATE 250 MCG/5 ML AMP ONE (17:44)
[2016-08-28] MEDS ORDERED: VANCOMYCIN HCL 1000 MG VIAL ONE (18:36)
--- NOTE | 2016-08-28 18:49 | PD.RAD ---
Post Procedure Progress Note Pre Procedure Diagnosis: (1) Lower GI bleeding (2) Hypovolemic shock Post Procedure Diagnosis: (1) Hypovolemic shock (2) Lower GI bleeding Procedure Date: Aug 28, 2016 Supervising Radiologist: Ephraim Garcia Proceduralist/Assist: Carri Montejo, RT(R)(), Mar Hurt RT(R)() Anesthesia: Local, Analgesia, Conscious Sedation Plan of Activity Patient to Unit: PACU Patient Condition: Fair See PACS Report for procedural detail/treatment Vascular-Arterial Procedure Procedure 1 Procedure Site: Celiac, Superior Mesenteric Artery Procedure(s): Angiogram Access Access Site(s): Right Femoral Artery Closure Site(s): Right vascular closure device (AngioSeal) Findings: Pt has had a probable aortobifem bypass with possible occlusion of left limb ( vs aortounilateral bypass), No bleed identified on celiac or SMA. Large meandering artery appears to supply ZACHARY distribution Ephraim Garcia MD Aug 28, 2016 18:49
[2016-08-28] MEDS ORDERED: IODIXANOL 320 MG/ML 50 ML VIAL (for RAD SPEC) I-ARTERIAL ONE (19:00)
[2016-08-28] MEDS: MAGNESIUM SULFATE INJ 2 GM in SODIUM CHLORIDE 0.9% INJ 96 ML IV PRN (19:09)
[2016-08-28] MEDS ORDERED: PEG (High)/E-LYTE SOLN 4000 ML BTL PO ONE (20:15)
[2016-08-28] MEDS: MORPHINE SULFATE 4 MG/ML INJ IV PRN (22:53)
[2016-08-29] VITALS (13 sets, daily range): BP systolic 70–146; BP diastolic 30–66; PULSE 94–108; RESP 19–25; TEMP 97.5–99.7; O2SAT 95–100
[2016-08-29 00:15] LABS: HEMATOCRIT 23.3 % (39.0-51.0); REVIEW FLAG FINAL
[2016-08-29] MEDS: CHLORHEXIDINE GLUCONATE 2 % 1 PACK (2 CLOTHS) TOP SCH (04:00)
--- NOTE | 2016-08-29 05:14 | MB ---
cc: GAURAV GILLIAM M.D. AMAN PRAJAPATI DATE OF CONSULTATION: 08/28/2016 REQUESTING PHYSICIAN: Dr. Gilliam. REASON FOR CONSULTATION: Lower GI bleed. HISTORY OF PRESENT ILLNESS: The patient is a 75 year-old male who was admitted on August 21, 2016, with lower GI bleed. The patient underwent a workup to include a colonoscopy performed by Dr. Kirkpatrick on 08/22/2016, which revealed blood on the left side of the colon with no active bleeding. The patient was treated medically and was hemodynamically stable with no recurrent bleeding over the next several days. Unfortunately on 08/28/2016 the patient experienced large bloody bowel movements and hemoglobin was noted to be decreased by 2 grams. The patient underwent stat angiogram by Dr. Garcia which showed no evidence of bleeding from viscera. The patient does remain hemodynamically stable in the Intensive Care Unit. The patient is currently undergoing transfusion with PRBCs. General surgery was asked to see the patient due to the recurrent bleeding and risk for surgery. REVIEW OF SYSTEMS Unable to obtain due to the patient being mildly confused and being a poor historian. PAST MEDICAL HISTORY Obtained from the chart. 1. A-fib. 2. Coronary artery disease. 3. High cholesterol. 4. Diabetes. 5. Gastroesophageal reflux disease. 6. Gout. 7. Hypertension. 8. History of myocardial infarction. PAST SURGICAL HISTORY: 1. Appendectomy. 2. CABG. ALLERGIES: LEVAQUIN CEFUROXIME MEDICATIONS Fentanyl Morphine. SOCIAL HISTORY The patient denies alcohol, tobacco or drug use. FAMILY HISTORY History of coronary artery disease. PHYSICAL EXAMINATION Vital signs: Heart rate 81, blood pressure 138/63, respiratory rate 24, temperature 96.6 degrees. GENERAL: The patient is an obese male in the Intensive Care Unit, in no acute distress. The patient does not appear acute or chronically ill. He is very mildly disoriented, awake, alert, answers questions appropriately. Nonfocal peripheral exam. Cranial nerves II through XII are grossly intact. Head: Normocephalic, atraumatic. Pupils round and reactive to light. Sclerae is anicteric. Mucous membranes are moist. Neck: Supple. No JVD. Lungs: Breath sounds present bilaterally. Nonlabored breathing pattern. Heart: Regular. Abdomen: Obese, soft, nontender to palpation. Nondistended. No organomegaly. No ascites. Extremities: Positive for trace edema. LABORATORY VALUES: Hemoglobin 6.8, down from 7.5. IMAGING STUDIES: GI nuclear medicine bleeding scan 08/24/2016, negative for bleeding. Angiogram, 08/28/2016, negative for bleeding. ASSESSMENT AND PLAN: The patient is a 75 year-old male with recurrent lower GI bleed. The patient was noted to have diverticulosis of the sigmoid and descending colon on his last colonoscopy on 08/22/2016, as well as blood mainly in the left side of the colon. There is no evidence of any blood on the right side of the colon. It appears that the patient has a left-sided GI bleed that is intermittent. The patient is hemodynamically stable at this point and time with no evidence of bleeding on the repeat angiogram. The patient is getting transfused, PRBCs and will follow hemoglobins closely. I agree with continued nonsurgical management as the patient is stable and appears to have stopped bleeding. However, if the patient does have recurrent bleeding, he is likely high-risk for further episodes of bleeding, we will follow along closely with the patient. If the patient does not respond to repeat attempts at minimally invasive treatment of GI bleeding, such as repeat angiography or repeat colonoscopy, we will proceed to the operating room for exploration and likely left colectomy. I discussed this with the patient and attempted to contact the patient's , and left a detailed voice mail. She was not able to be reached. Thank you for the consultation. Will follow along closely with this patient. MD JOI Begum/GABBY /11:17 PM /4:32 AM
[2016-08-29] MEDS: 1/2 NS + KCL 20 MEQ INJ 1,000 ML IV SCH (05:30)
[2016-08-29] MEDS: PANTOPRAZOLE SODIUM 40 MG VIAL IV SCH ×2 (05:31→17:56)
[2016-08-29] MEDS: METOCLOPRAMIDE HCL 10 MG/2 ML VIAL IV PUSH SCH ×3 (05:34→23:38)
[2016-08-29 05:53] LABS: BICARBONATE 18.5 MEQ/L (21.0-32.0)
[2016-08-29 06:05] LABS: CALCIUM-PROTEIN CORRECTED 8.5 MG/DL (8.5-10.1)
[2016-08-29] MEDS: CHLORHEXIDINE 0.12% (ORAL KIT) 15 ML CUP MT SCH ×2 (08:00→20:00)
--- NOTE | 2016-08-29 08:10 | HHI.PR ---
Subjective Subjective Notes no bleeding overnight Objective Vitals/I&O Vital Signs Date Time Temp Pulse Resp B/P Pulse Ox O2 Delivery O2 Flow Rate FiO2 08/29/16 06:00 103 08/29/16 04:00 97.5 22 134/61 95 08/28/16 20:41 Nasal Cannula 4.00 Labs Laboratory Tests Test 08/28/16 08/28/16 08/28/16 08/29/16 16:20 17:25 20:09 00:00 Hemoglobin 6.8 7.9 Hematocrit 20.0 23.3 Sodium Level 150 Potassium Level 3.9 Chloride Level 123 Carbon Dioxide Level 21.3 Anion Gap 6 Blood Urea Nitrogen 22 Creatinine 1.40 Estimat Glomerular Filtration 50 Rate Random Glucose 96 Calcium Level 7.4 Protein Corrected Calcium 8.7 Phosphorus Level 2.8 Magnesium Level 1.5 Total Protein 4.8 Blood Type A POSITIVE Antibody Screen NEGATIVE Crossmatch Leukocyte-Reduced Leukocyte-Reduced Red Blood Red Blood Cells Cells Blood Bank Comment Test 08/29/16 05:20 Sodium Level 151 Potassium Level 4.0 Chloride Level 123 Carbon Dioxide Level 18.5 Anion Gap 10 Blood Urea Nitrogen 26 Creatinine 1.47 Estimat Glomerular Filtration 47 Rate Random Glucose 77 Calcium Level 7.2 Protein Corrected Calcium 8.5 Total Protein 4.7 Cardiovascular: Regular Lungs: Clear Abdomen: Non-distended, Non-tender Extremities: Perfused Narrative Exam mildly confused A/P Assessment and Plan 75yo with recurrent LGIB, likely left side colon source stable today, HH stable after blood angio on 08/28 negative for bleeding for colonoscopy today will follow Colt Smiley MD Aug 29, 2016 08:10
[2016-08-29] MEDS: SODIUM CHLORIDE 0.9% FLUSH 5 ML FLUSH IV FLUSH SCH ×2 (09:00→23:40)
[2016-08-29 09:56] LABS: AUTOMATED NEUTROPHIL # 7.2 TH/MM3 (1.8-7.7); BASOPHIL # 0.1 TH/MM3 (0-0.2); BASOPHIL % 0.6 % (0.0-2.0); EOSINOPHIL # 0.1 TH/MM3 (0-0.4); EOSINOPHIL % 1.4 % (0.0-4.0); HEMATOCRIT 22.3 % (39.0-51.0); HEMO FLAGS DIFF FINAL; LYMPH % 8.3 % (9.0-44.0); LYMPHOCYTE # 0.7 TH/MM3 (1.0-4.8); MEAN CELL VOLUME 86.9 FL (80.0-100.0); MEAN CORPUSCULAR HEMOGLOBIN 29.3 PG (27.0-34.0); MEAN CORPUSCULAR HGB CONC 33.7 % (32.0-36.0); MONO % 6.6 % (0.0-8.0); NEUT % 83.1 % (16.0-70.0); PLATELET COUNT 112 TH/MM3 (150-450); RED BLOOD COUNT 2.56 MIL/MM3 (4.50-5.90); RED CELL DISTRIBUTION WIDTH 16.6 % (11.6-17.2); WHITE BLOOD COUNT 8.6 TH/MM3 (4.0-11.0)
--- NOTE | 2016-08-29 13:29 | HHI.PR ---
Subjective Remarks Patient laying in bed his partially confused, he was aware of the month but not of the year, he thought Ori is the president and when I told him not any more , he said yes it strong and he was here yesterday and when I said where here he said here in the hotel. Family came to the room I discussed with them explaining the situation Patient denied chest pain or short of breath, he had an angiogram yesterday which did not show source of bleeding, plan for colonoscopy today, but if continue to lose blood surgery has been consulted and patient will go to our for laparotomy and possible left colectomy as per surgery Objective Vitals Vital Signs Date Time Temp Pulse Resp B/P Pulse Ox O2 Delivery O2 Flow Rate FiO2 08/29/16 10:00 97 08/29/16 09:52 100 Nasal Cannula 4.00 08/29/16 08:00 98.1 94 20 141/63 99 08/29/16 08:00 101 08/29/16 06:00 103 08/29/16 04:00 97.5 98 22 134/61 95 08/29/16 04:00 98 08/29/16 02:00 103 08/29/16 00:00 97.5 108 25 95/50 96 08/29/16 00:00 108 08/28/16 22:00 106 08/28/16 20:41 92 Nasal Cannula 4.00 08/28/16 20:00 97.5 92 23 109/53 96 08/28/16 20:00 92 08/28/16 18:00 81 08/28/16 16:00 89 08/28/16 16:00 96.6 89 24 138/63 97 08/28/16 14:00 79 I/O 08/28/16 08/28/16 08/28/16 08/29/16 08/29/16 08/29/16 07:00 15:00 23:00 07:00 15:00 23:00 Intake Total 1248 ml 562 ml 2912 ml 1023 ml Output Total 350 ml 350 ml 780 ml 200 ml Balance 898 ml 212 ml 2132 ml 823 ml Intake Oral 300 ml 400 ml IV Total 1248 ml 262 ml 2412 ml 623 ml Packed Cells 500 ml Output Urine Total 350 ml 350 ml 230 ml 200 ml Stool Total 550 ml # Bowel Movements 0 1 4 1 Result Diagram: 08/29/16 0929 08/29/16 0520 Objective Remarks GENERAL: This is a well-nourished, well-developed patient, in no apparent distress. SKIN: No rashes, warm and dry HEAD: Atraumatic. Normocephalic. EYES: Pupils equal round and reactive. Extraocular motions intact. No scleral icterus. ENT: Nose without bleeding, or drainage, Airway patent. NECK: Trachea midline. Supple CARDIOVASCULAR: Irregularly irregular no murmurs, gallops, or rubs. RESPIRATORY: Fair air entry bilaterally. No wheezes, rales, or rhonchi. GASTROINTESTINAL: Abdomen soft, non-tender, nondistended. Positive bowel sounds MUSCULOSKELETAL: Extremities without clubbing, cyanosis, or edema. Pedal pulses appreciated NEUROLOGICAL: Awake and alert. Moves all extremity. Normal speech.no focal neurological deficit A/P Assessment and Plan S/P extubation after hypovolemic shock from major lower GI bleed. He has received 12 units of blood and has now started actively bleeding again for the 3rd time in 72 hours. 08/25: Bled again last night, now stable. Tagged red cell study does not show a source. 08/26: Stable hemodynamics and Hgb, No bleeding. 08/27: Stable, no signs of bleeding 08/28: Hemoglobin continued to drop 7.8 today, will repeat at 1800, if less than 7 will transfuse and notify GI Hypernatremia with hypokalemia>> change iv fluid to half-normal saline with KCl at 80 cc/h for 1500 , repeat BMP at 1800 and in a.m. 08/29: GI bleed: Angiogram yesterday was unremarkable to identify source of bleeding Appreciated surgery consultation, plan to monitor H&H closely, colonoscopy by GI today, if continue to lose blood he may go to our for laparotomy and colectomy Hyponatremia: Continue with half-normal saline increase rate to 100, monitor BMP and BNP patient later on sustain severe hypotension with systolic blood pressure in the 60s, the nurse started him on Jose Antonio-Synephrine with improvement up, however I given order to give 1 L of normal saline bolus to refill his tank, and to give another 500 cc bolus along with trying to wean off Jose Antonio-Synephrine, and if we cannot will consult char filter tank tender head, ordered stat H&H now, will transfuse for hemoglobin less than 8. Critical care time 50 minutes A/P: GI bleed - probable left colon diverticular bleed ?? - PPI BID - GI following - colonoscopy 08/22 w/o obvious source of bleed, - serial H&H -Bleeding scan showed no source of bleeding Anemia of blood loss - transfuse for hemodynamic instability - transfuse to keep Hg > 8 (recent ACS) - transfuse 2 units, total 12 CAD - hold anticoagulation due to acute hemophage - supportive care - hold all antiplatelet meds Respiratory failure - intubated for an airway protection - extubated 08/23 Hypotension>> recurrent - blood loss - volume replacement REJI - volume loss - i.v. fluids resuscitation - monitor electrolytes and renal functions Atrial Fibrillation - rate controlled - resume home meds when hemodynamically stable, no anticoagulation Diabetes - SSI for euglycemia - hold p.o. meds GERD - PPI DVT/GI prophylaxis - SCDs/PPI BID Brock Kapoor MD Aug 29, 2016 13:29
--- NOTE | 2016-08-29 14:56 | HHI.GIFU ---
GI Follow-up Note Consult Follow-up Subjective: Patient laying in bed comfortably, no new complaints except melena , BRBPR Objective: PHYSICAL EXAMINATION: Vitals signs stable No fever HEENT: Pupils round and reactive to light; normocephalic; atraumatic; no jaundice. Throat is clear. NECK: Neck is supple, no JVD, no lymphadenopathy. CHEST: Chest is clear to auscultation and percussion. CARDIAC: Regular rate and rhythm with no murmur gallop or rubs. ABDOMEN: Soft, nondistended, nontender; no hepatosplenomegaly; bowel sounds are present in all four quadrants. EXTREMITIES: No clubbing, cyanosis, or edema. SKIN: Normal; no rash; no jaundice. BOX PERSON: No focal deficits; alert and oriented times three. Available Data (labs, X- Rays, Procedues) : Last Impressions GI Bleed Scan Nuclear Medicine 08/24/16 0000 Signed Impressions: Service Date/Time: Wednesday, August 24, 2016 14:53 - CONCLUSION: A GI bleed is not seen. Uziel Cooper MD Chest X-Ray 08/23/16 0600 Signed Impressions: Service Date/Time: Tuesday, August 23, 2016 04:16 - CONCLUSION: Satisfactory support line and tube positioning. Slight interval improvement in aeration. Uziel Munoz MD Laboratory Tests Test 08/28/16 08/28/16 08/28/16 08/28/16 05:05 16:20 17:25 20:09 White Blood Count 5.8 TH/MM3 Red Blood Count 2.48 MIL/MM3 Hemoglobin 7.5 GM/DL 6.8 GM/DL Hematocrit 22.0 % 20.0 % Mean Corpuscular Volume 88.8 FL Mean Corpuscular Hemoglobin 30.2 PG Mean Corpuscular Hemoglobin 34.0 % Concent Red Cell Distribution Width 16.0 % Platelet Count 98 TH/MM3 Mean Platelet Volume 8.7 FL Neutrophils (%) (Auto) 81.9 % Lymphocytes (%) (Auto) 7.8 % Monocytes (%) (Auto) 5.8 % Eosinophils (%) (Auto) 4.2 % Basophils (%) (Auto) 0.3 % Neutrophils # (Auto) 4.8 TH/MM3 Lymphocytes # (Auto) 0.5 TH/MM3 Monocytes # (Auto) 0.3 TH/MM3 Eosinophils # (Auto) 0.2 TH/MM3 Basophils # (Auto) 0.0 TH/MM3 CBC Comment DIFF FINAL Differential Comment Sodium Level 153 MEQ/L 150 MEQ/L Potassium Level 3.3 MEQ/L 3.9 MEQ/L Chloride Level 122 MEQ/L 123 MEQ/L Carbon Dioxide Level 20.4 MEQ/L 21.3 MEQ/L Anion Gap 11 MEQ/L 6 MEQ/L Blood Urea Nitrogen 23 MG/DL 22 MG/DL Creatinine 1.33 MG/DL 1.40 MG/DL Estimat Glomerular Filtration 53 ML/MIN 50 ML/MIN Rate Random Glucose 113 MG/DL 96 MG/DL Calcium Level 7.6 MG/DL 7.4 MG/DL Protein Corrected Calcium 8.7 MG/DL Phosphorus Level 2.8 MG/DL Magnesium Level 1.5 MG/DL Total Protein 4.8 GM/DL Blood Type A POSITIVE Antibody Screen NEGATIVE Crossmatch Leukocyte-Reduced Leukocyte-Reduced Red Blood Red Blood Cells Cells Blood Bank Comment Test 08/29/16 08/29/16 08/29/16 00:00 05:20 09:29 Hemoglobin 7.9 GM/DL 7.5 GM/DL Hematocrit 23.3 % 22.3 % Sodium Level 151 MEQ/L Potassium Level 4.0 MEQ/L Chloride Level 123 MEQ/L Carbon Dioxide Level 18.5 MEQ/L Anion Gap 10 MEQ/L Blood Urea Nitrogen 26 MG/DL Creatinine 1.47 MG/DL Estimat Glomerular Filtration 47 ML/MIN Rate Random Glucose 77 MG/DL Calcium Level 7.2 MG/DL Protein Corrected Calcium 8.5 MG/DL Total Protein 4.7 GM/DL White Blood Count 8.6 TH/MM3 Red Blood Count 2.56 MIL/MM3 Mean Corpuscular Volume 86.9 FL Mean Corpuscular Hemoglobin 29.3 PG Mean Corpuscular Hemoglobin 33.7 % Concent Red Cell Distribution Width 16.6 % Platelet Count 112 TH/MM3 Mean Platelet Volume 8.5 FL Neutrophils (%) (Auto) 83.1 % Lymphocytes (%) (Auto) 8.3 % Monocytes (%) (Auto) 6.6 % Eosinophils (%) (Auto) 1.4 % Basophils (%) (Auto) 0.6 % Neutrophils # (Auto) 7.2 TH/MM3 Lymphocytes # (Auto) 0.7 TH/MM3 Monocytes # (Auto) 0.6 TH/MM3 Eosinophils # (Auto) 0.1 TH/MM3 Basophils # (Auto) 0.1 TH/MM3 CBC Comment DIFF FINAL Differential Comment Allergies Coded Allergies Type Severity Reaction Last Updated Verified Cefuroxime sodium Allergy Severe Itching 08/21/16 Yes Levaquin Allergy Severe Itching 08/21/16 Yes Active Scripts Medications Dose Route/Sig Days Date Category Centrum Men (Multiple Vitamins-Minerals) 1 Tab Tab 1 Tab PO DAILY 08/21/16 Reported Vitamin D-1000 (Cholecalciferol) 1,000 Unit Tab 1,000 Units PO DAILY 08/21/16 Reported Ascorbic Acid 500 Mg Tab 500 Mg PO DAILY 08/21/16 Reported Xarelto (Rivaroxaban) 20 Mg Tab 20 Mg PO DAILY 08/21/16 Reported Furosemide 20 Mg Tab 20 Mg PO DAILY 08/21/16 Reported Enalapril (Enalapril Maleate) 20 Mg Tab 20 Mg PO DAILY 08/21/16 Reported Atorvastatin (Atorvastatin Calcium) 10 Mg Tab 10 Mg PO HS 08/21/16 Reported Amlodipine (Amlodipine Besylate) 10 Mg Tab 10 Mg PO DAILY 08/21/16 Reported Allopurinol 300 Mg Tab 300 Mg PO DAILY 08/21/16 Reported ASSESSMENT/PLAN: Seen and examined, still with BRBPR, H/H stable. Finally completed golytle earlier today through NG. Stools still not clear. No clear bleeding source on angiogram yesterday. Colonoscopy on hold till bowel prep completed, previous colonoscopy incomplete due to poor prep. Mag citrate today. NPO. Discussed with pt . and nurse. Colonoscopy tomorrow. It was a pleasure seeing Vasu Kovacs Thank you for this consult. Entered by: Samreen Odonnell MD Aug 29, 2016 14:56
[2016-08-29] MEDS ORDERED: MAGNESIUM CITRATE SOLN 300 ML BTL PO ONE (15:00)
--- NOTE | 2016-08-29 15:51 | RADRPT ---
EXAM DATE/TIME: 08/29/2016 15:04 [facility] COMPARISON: No previous studies available for comparison. INDICATIONS : Nontraumatic right foot pain. MEDICAL HISTORY : None. SURGICAL HISTORY : None. ENCOUNTER: Initial ACUITY: 3 days PAIN SCORE: 1/10 LOCATION: Right ankle FINDINGS: The ankle is normally aligned. There is soft-tissue swelling at the ankle. A fracture is not seen. The patient does have increased density seen in the distal tibial shaft. This is likely from either an underlying lesion such as an enchondroma or a prior bone infarct. Vascular calcifications are se en. CONCLUSION: 1. Soft-tissue swelling at the ankle without a fracture seen. 2. 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 Uziel Cooper MD on August 29, 2016 at 15:44 Board Certified Radiologist. This report was verified electronically.
--- NOTE | 2016-08-29 15:57 | RADRPT ---
EXAM DATE/TIME: 08/29/2016 15:17 [facility] COMPARISON: ANKLE RIGHT LIMITED (AP&LAT), August 29, 2016, 15:04. INDICATIONS : Nontraumatic right foot pain. MEDICAL HISTORY : None. SURGICAL HISTORY : None. ENCOUNTER: Initial ACUITY: 3 days PAIN SCORE: 1/10 LOCATION: Right foot FINDINGS: No fracture is seen. There is a mild hallux valgus deformity. There is some hypertrophic change see n inferior to the lateral malleolus. No foreign bodies are seen. Significant soft-tissue swelling i s not seen. There does appear to be a focal bone lesion seen at the distal tibia likely representing a bone infarct or enchondroma. CONCLUSION: No acute abnormality is seen. There is chronic change as described above. Uziel Cooper MD on August 29, 2016 at 15:50 Board Certified Radiologist. This report was verified electronically.
[2016-08-29] MEDS: SODIUM CHLOR 0.45% 1000 ML INJ 1,000 ML IV SCH ×2 (16:04→23:30)
--- NOTE | 2016-08-29 16:25 | RADRPT ---
EXAM DATE/TIME: 08/28/2016 17:58 [facility] COMPARISON: No previous studies available for comparison. INDICATIONS : Patient with a history of GI bleed. MEDICAL HISTORY : AFIB High cholesterol CHF CAD Diabetes GERD Diminished hearing Gout HTN SURGICAL HISTORY : Appendectomy Coronary artery bypass graft ENCOUNTER: Initial ACUITY: 1 day PAIN SCORE: 5/10 LOCATION: abdomen FLUORO TIME: 3.7 minutes ACCESS SITE: Right Femoral artery SEDATION TIME: 30 minutes CONTRAST: 1.) 105 cc Visipaque (iodixanol) MEDICATION(S): 1.) 0.5 mg midazolam (Versed) IV 2.) 25 mcg fentanyl (Sublimaze) IV 3.) Vancomycin IV Intra-procedural antibiotics were given as prescribed above. DEVICE(S): 1.) Right common femoral artery 6FR Angio-Seal PROCEDURE : 1. Ultrasound-guided puncture of the access site. 2. Angiography of the access site prior to closure device. 3. Conscious sedation with continuous EKG and Oximetry monitoring. 4. Percutaneous closure of the access site. 5. Angiography of the celiac artery 6. Angiography of the SMA The risks, benefits and alternatives to the procedure were explained and verbal and written consent w as obtained. The site was prepped in sterile fashion. Full sterile technique was used, including ca p, mask, sterile gloves and gown and a large sterile sheet. Hand hygiene and 2% chlorhexidine and/or betadine/alcohol prep was utilized per protocol for cutaneous antisepsis. The skin and subcutaneous tissues were infiltrated with local anesthetic solution. With ultrasound and fluoroscopic guidance the selected artery was punctured and a vascular sheath was placed. Angiography of the common femoral artery was performed for evaluation prior to percutaneous closure device placement. First fluoroscopic image showed the course of the catheter to be medial to the calcifications in the right iliac system. Contrast injection confirmed this is the right limb of an aortobifemoral bypass g raft which anastomoses with the absentee-shawnee aorta just below the level of the renal arteries. 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 Extensive collateral vess els were identified in the pelvis with reconstitution of the common femoral artery and left. Of cours e, with the bypass, the ZACHARY is not visible or accessible from its origin. Catheter was then placed into the celiac artery. Contrast injection showed normal arborization of the celiac with no active hemorrhage. Catheter was then placed into the SMA and again slightly into the vessel. Contrasted run with delays show normal arborization of the SMA vessel with no active hemorrhage. A delayed image shows a large m eandering artery which probably supplies the ZACHARY territory. Hemostasis was obtained with the prescribed medicated closure device. Conscious sedation was perform ed with the prescribed dosages and duration as above. EKG and oximetry remained stable throughout th e procedure. The patient was sent to post anesthesia recovery in stable condition. CONCLUSION: 1. 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 2. The bypass of course excludes access to the origin of the ZACHARY. 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 3. No active hemorrhage identified in the celiac or SMA. Ephraim Garcia MD on August 29, 2016 at 16:15 Board Certified Radiologist. This report was verified electronically.
[2016-08-29 17:29] LABS: REVIEW FLAG FINAL
[2016-08-29] MEDS ORDERED: SODIUM CHLOR 0.9% 1000 ML INJ 1,000 ML IV ONE (17:30)
[2016-08-29 17:31] LABS: HEMATOCRIT 15.3 % (39.0-51.0)
[2016-08-29] MEDS ORDERED: ALTEPLASE RECOMBINANT 2 MG VIAL OTHER ONE (18:00)
[2016-08-30] VITALS (16 sets, daily range): BP systolic 105–146; BP diastolic 55–64; PULSE 99–113; RESP 19–25; TEMP 98–99.3; O2SAT 97–100
[2016-08-30 00:37] LABS: REVIEW FLAG FINAL
[2016-08-30 00:40] LABS: HEMATOCRIT 19.3 % (39.0-51.0)
[2016-08-30] MEDS ORDERED: SODIUM CHLOR 0.9% 250 ML INJ 250 ML IV ONE ×2 (01:00→22:00)
[2016-08-30 01:35] LABS: MAGNESIUM 1.7 MG/DL (1.5-2.5)
[2016-08-30] MEDS: CHLORHEXIDINE GLUCONATE 2 % 1 PACK (2 CLOTHS) TOP SCH (03:21)
[2016-08-30] MEDS: METOCLOPRAMIDE HCL 10 MG/2 ML VIAL IV PUSH SCH ×3 (06:00→22:41)
[2016-08-30] MEDS: PANTOPRAZOLE SODIUM 40 MG VIAL IV SCH ×2 (06:15→17:09)
[2016-08-30 07:20] LABS: HEMATOCRIT 23.6 % (39.0-51.0); REVIEW FLAG FINAL
[2016-08-30 07:49] LABS: BICARBONATE 19.6 MEQ/L (21.0-32.0); POTASSIUM 3.7 MEQ/L (3.5-5.1)
[2016-08-30] MEDS: CHLORHEXIDINE 0.12% (ORAL KIT) 15 ML CUP MT SCH ×2 (08:00→20:00)
[2016-08-30] MEDS ORDERED: PROPOFOL 200 MG/20 ML AMP IV ONE (09:08)
[2016-08-30] MEDS: SODIUM CHLORIDE 0.9% FLUSH 5 ML FLUSH IV FLUSH SCH ×2 (10:12→22:14)
[2016-08-30] MEDS: SODIUM CHLOR 0.45% 1000 ML INJ 1,000 ML IV SCH (10:13)
--- NOTE | 2016-08-30 10:57 | HHI.PR ---
Subjective Subjective Notes Resting in bed; confused; c/o mild abdominal pain Objective Vitals/I&O Vital Signs Date Time Temp Pulse Resp B/P Pulse Ox O2 Delivery O2 Flow Rate FiO2 08/30/16 07:31 97 Nasal Cannula 3.00 08/30/16 06:00 106 08/30/16 04:00 98.7 25 105/55 Labs Laboratory Tests Test 08/29/16 08/29/16 08/30/16 08/30/16 17:00 18:27 00:15 00:50 Hemoglobin 5.2 6.8 Hematocrit 15.3 19.3 Blood Bank Comment Blood Type A POSITIVE Crossmatch Leukocyte-Reduced Red Blood Cells Test 08/30/16 05:55 Hemoglobin 8.1 Hematocrit 23.6 Sodium Level 153 Potassium Level 3.7 Chloride Level 123 Carbon Dioxide Level 19.6 Anion Gap 10 Blood Urea Nitrogen 29 Creatinine 1.66 Estimat Glomerular Filtration 41 Rate Random Glucose 93 Calcium Level 6.9 Protein Corrected Calcium 9.0 B-Type Natriuretic Peptide 688 Total Protein 3.5 Cardiovascular: Regular Lungs: Clear Abdomen: Other (mild andominal pain over andomen; mildly distended ) Extremities: No edema A/P Assessment and Plan 75 year old male with LGIB -RN reports large bloody BM last night -Hmg 6 at midnight; s/p PRBCs transfusion Hmg 8.1 -EGD/Colonoscopy today shows blood from transverse colon to rectum with no active bleeding with significant diverticulosis -Continue monitoring Hmg; transfuse as needed -Patient is a poor surgical candidate -Will continue non-operative treatment Attending Statement The exam, history, and the medical decision-making described in the above note were completed with the assistance of the mid-level provider. I reviewed and agree with the findings presented. I attest that I had a [id number] encounter with the patient on the same day, and personally performed and documented my assessment and findings in the medical record. Abdominal exam non-surgical, no current bleeding Haley Calloway Aug 30, 2016 10:57 Colt Smiley MD Oct 03, 2016 00:19
--- NOTE | 2016-08-30 16:22 | HHI.PR ---
Subjective Remarks patient resting in bed comfortably, but he is confused He told me "they told me I have few days only "when I asked him who told you so he said "binta" which she would probably meant to say"nemou" which is me He is not oriented to time he think it's obando, and he couldn't tell the year Patient had another episode of low hemoglobin he was transfused packed red blood cells and cryoglobulin, I discussed with the nurse, he had his colonoscopy and EGD Objective Vitals Vital Signs Date Time Temp Pulse Resp B/P Pulse Ox O2 Delivery O2 Flow Rate FiO2 08/30/16 12:00 98.0 111 19 146/64 99 08/30/16 08:00 99.3 106 20 123/61 97 08/30/16 07:31 97 Nasal Cannula 3.00 08/30/16 06:00 106 08/30/16 04:00 105 08/30/16 04:00 98.7 106 25 105/55 97 08/30/16 02:00 104 08/30/16 00:00 98.4 104 22 137/55 100 08/30/16 00:00 104 08/29/16 22:00 108 08/29/16 22:00 98 Nasal Cannula 2.00 08/29/16 20:00 99.7 108 22 126/59 100 08/29/16 20:00 108 08/29/16 18:00 102 I/O 08/29/16 08/29/16 08/29/16 08/30/16 08/30/16 08/30/16 07:00 15:00 23:00 07:00 15:00 23:00 Intake Total 1023 ml 3393 ml 774 ml Output Total 200 ml 550 ml 1675 ml 1350 ml Balance 823 ml -550 ml 1718 ml -576 ml Intake Oral 400 ml IV Total 623 ml 2393 ml 774 ml Packed Cells 500 ml Platelets 291 ml Cryoprecipitate 209 ml Output Urine Total 200 ml 550 ml 275 ml 350 ml Stool Total 1400 ml 1000 ml # Bowel Movements 1 2 1 Result Diagram: 08/30/1655 08/30/1655 Objective Remarks GENERAL: This is a well-nourished, well-developed patient, in no apparent distress. But confused SKIN: No rashes, warm and dry HEAD: Atraumatic. Normocephalic. EYES: Pupils equal round and reactive. Extraocular motions intact. No scleral icterus. ENT: Nose without bleeding, or drainage, Airway patent. NECK: Trachea midline. Supple CARDIOVASCULAR: Irregularly irregular no murmurs, gallops, or rubs. RESPIRATORY: Fair air entry bilaterally. No wheezes, rales, or rhonchi. GASTROINTESTINAL: Abdomen soft, non-tender, nondistended. Positive bowel sounds MUSCULOSKELETAL: Extremities without clubbing, cyanosis, or edema. Pedal pulses appreciated NEUROLOGICAL: Awake and alert but continues. Moves all extremity. Normal speech.no focal neurological deficit A/P Assessment and Plan S/P extubation after hypovolemic shock from major lower GI bleed. He has received 12 units of blood and has now started actively bleeding again for the 3rd time in 72 hours. 08/25: Bled again last night, now stable. Tagged red cell study does not show a source. 08/26: Stable hemodynamics and Hgb, No bleeding. 08/27: Stable, no signs of bleeding 08/28: Hemoglobin continued to drop 7.8 today, will repeat at 1800, if less than 7 will transfuse and notify GI Hypernatremia with hypokalemia>> change iv fluid to half-normal saline with KCl at 80 cc/h for 1500 , repeat BMP at 1800 and in a.m. 08/29: GI bleed: Angiogram yesterday was unremarkable to identify source of bleeding Appreciated surgery consultation, plan to monitor H&H closely, colonoscopy by GI today, if continue to lose blood he may go to our for laparotomy and colectomy Hyponatremia: Continue with half-normal saline increase rate to 100, monitor BMP and BNP patient later on sustain severe hypotension with systolic blood pressure in the 60s, the nurse started him on Jose Antonio-Synephrine with improvement up, however I given order to give 1 L of normal saline bolus to refill his tank, and to give another 500 cc bolus along with trying to wean off Jose Antonio-Synephrine, and if we cannot will consult special education curriculum specialist, ordered stat H&H now, will transfuse for hemoglobin less than 8. Critical care time 50 minutes 08/30/16: Patient still confused he looks clammy, he stated he had a bowel movement which is bloody today, his hemoglobin dropped to 5 last night and he was given packed red blood cells with cryoprecipitate. He had EGD and colonoscopy today report still pending, surgery also following they want to continue nonsurgical management with continuing monitoring H&H Hypernatremia: Still at 153, will switch to D5 water, his water deficit around 3.9 L, repeat BMP in a.m. D/W nurse any worsening in his situation or dropping in hemoglobin will notify surgery patient may need to go for laparoscopy Condition is critical A/P: GI bleed - probable left colon diverticular bleed ?? - PPI BID - GI , GS following - colonoscopy 08/22 w/o obvious source of bleed, - serial H&H -Bleeding scan, mesenteric angiogram did not specify source of bleeding -This was EGD and colonoscopy 08/30/16 Anemia of blood loss - transfuse for hemodynamic instability - transfuse to keep Hg > 8 (recent ACS) CAD - hold anticoagulation due to acute hemophage - supportive care - hold all antiplatelet meds Respiratory failure - intubated for an airway protection - extubated 08/23 Hypotension>> recurrent - blood loss - volume replacement REJI - volume loss - i.v. fluids resuscitation - monitor electrolytes and renal functions Atrial Fibrillation - rate controlled - resume home meds when hemodynamically stable, no anticoagulation Diabetes - SSI for euglycemia - hold p.o. meds GERD - PPI DVT/GI prophylaxis - SCDs/PPI BID Brock Kapoor MD Aug 30, 2016 16:22
[2016-08-30] MEDS: DEXTROSE 5% IN WATE 1000ML INJ 1,000 ML IV SCH (17:09)
[2016-08-30 21:46] LABS: HEMATOCRIT 21.2 % (39.0-51.0); REVIEW FLAG FINAL
[2016-08-30] MEDS ORDERED: FUROSEMIDE 20 MG/2 ML VIAL IV ONE (22:00)
[2016-08-31] VITALS (14 sets, daily range): BP systolic 137–164; BP diastolic 60–70; PULSE 88–110; RESP 14–24; TEMP 98–99.2; O2SAT 93–100
[2016-08-31] MEDS: DEXTROSE 5% IN WATE 1000ML INJ 1,000 ML IV SCH ×3 (02:20→22:07)
[2016-08-31] MEDS: CHLORHEXIDINE GLUCONATE 2 % 1 PACK (2 CLOTHS) TOP SCH (04:00)
[2016-08-31 04:48] LABS: POTASSIUM 3.3 MEQ/L (3.5-5.1)
[2016-08-31 05:03] LABS: CALCIUM-PROTEIN CORRECTED 9.1 MG/DL (8.5-10.1)
[2016-08-31] MEDS: POTASSIUM CHLOR 40 MEQ PREMIX 100 ML IV PRN (05:17)
[2016-08-31] MEDS: METOCLOPRAMIDE HCL 10 MG/2 ML VIAL IV PUSH SCH ×3 (05:17→22:07)
[2016-08-31] MEDS: PANTOPRAZOLE SODIUM 40 MG VIAL IV SCH ×2 (05:17→18:05)
[2016-08-31] MEDS: CHLORHEXIDINE 0.12% (ORAL KIT) 15 ML CUP MT SCH ×2 (08:00→20:00)
[2016-08-31] MEDS: SODIUM CHLORIDE 0.9% FLUSH 5 ML FLUSH IV FLUSH SCH ×2 (08:51→21:08)
[2016-08-31 08:58] LABS: HEMATOCRIT 22.9 % (39.0-51.0); REVIEW FLAG FINAL
--- NOTE | 2016-08-31 09:37 | HHI.PR ---
Subjective Subjective Notes Resting in bed No complaints Cannot remember if he had EGD/Colonoscopy yesterday----confused Objective Vitals/I&O Vital Signs Date Time Temp Pulse Resp B/P Pulse Ox O2 Delivery O2 Flow Rate FiO2 08/31/16 08:19 96 21 08/31/16 08:00 98.7 96 18 137/60 08/31/16 07:00 Room Air 08/30/16 21:00 2.00 Labs Laboratory Tests Test 08/30/16 08/31/16 08/31/16 21:10 03:52 08:27 Hemoglobin 7.2 8.0 Hematocrit 21.2 22.9 Sodium Level 150 Potassium Level 3.3 Chloride Level 120 Carbon Dioxide Level 19.0 Anion Gap 11 Blood Urea Nitrogen 29 Creatinine 1.70 Estimat Glomerular Filtration 40 Rate Random Glucose 121 Calcium Level 7.3 Protein Corrected Calcium 9.1 Total Protein 4.0 Cardiovascular: Regular Lungs: Clear Abdomen: Other (obese abdomen; non tender; only mildly distended ) Extremities: No edema A/P Assessment and Plan 75 year old male with LGIB -RN reports large BM last night but was not bloody -Hmg today 8.0 -EGD/Colonoscopy yesterday shows blood from transverse colon to rectum with no active bleeding with significant diverticulosis -Continue monitoring Hmg; transfuse as needed -Patient is a poor surgical candidate -Will continue non-operative treatment Attending Statement The exam, history, and the medical decision-making described in the above note were completed with the assistance of the mid-level provider. I reviewed and agree with the findings presented. I attest that I had a [id number] encounter with the patient on the same day, and personally performed and documented my assessment and findings in the medical record. Abdominal exam non-surgical, no bleeding currently HH stable, will follow Haley Calloway Aug 31, 2016 09:37 Colt Smiley MD Oct 03, 2016 00:21
--- NOTE | 2016-08-31 10:47 | HHI.PR ---
Subjective Remarks Patient awake alert laying in bed but confused I was called by the nurse regarding her concern about the left lower extremity being cold toes, I came to see the patient he still have significant pitting edema in the lower extremity, which preclude feeling pulse, he does have positive popliteal pulse on that limb, the nurse checked the pulse with the Doppler which revealed some humming In any way situation getting complicated since patient actively bleeding and he is contraindicated for any anticoagulation at this point, will continue monitoring very closely I discussed with Dr. Kramer the manager bridge who knows the patient from previous intensive care admission, he graciously agreed to resume care for critically GI pain bleeding situation in a patient who has A. fib Objective Vitals Vital Signs Date Time Temp Pulse Resp B/P Pulse Ox O2 Delivery O2 Flow Rate FiO2 08/31/16 10:00 96 08/31/16 08:19 96 21 08/31/16 08:00 98.7 96 18 137/60 96 08/31/16 08:00 98 08/31/16 07:00 95 Room Air 08/31/16 06:00 96 08/31/16 04:00 98.0 102 14 140/64 95 08/31/16 04:00 102 08/31/16 02:00 104 08/31/16 00:00 110 08/31/16 00:00 99.2 110 19 157/69 100 08/30/16 23:30 99.2 08/30/16 22:45 98.8 08/30/16 22:30 98.6 08/30/16 22:00 113 08/30/16 21:00 Nasal Cannula 2.00 08/30/16 20:00 109 08/30/16 20:00 Nasal Cannula 3.00 08/30/16 20:00 98.6 109 19 134/61 97 08/30/16 18:00 99 08/30/16 16:00 107 08/30/16 16:00 99.1 107 20 135/63 100 08/30/16 14:00 110 08/30/16 12:00 111 08/30/16 12:00 98.0 111 19 146/64 99 I/O 08/30/16 08/30/16 08/30/16 08/31/16 08/31/16 08/31/16 07:00 15:00 23:00 07:00 15:00 23:00 Intake Total 774 ml 1089 ml 1185 ml 734 ml Output Total 1350 ml 725 ml 375 ml 1500 ml Balance -576 ml 364 ml 810 ml -766 ml IV Total 774 ml 1089 ml 935 ml 734 ml Packed Cells 250 ml Output Urine Total 350 ml 525 ml 375 ml 1500 ml Stool Total 1000 ml 200 ml # Bowel Movements 1 1 0 Result Diagram: 08/31/16 0827 08/31/16 0352 Objective Remarks GENERAL: This is a well-nourished, well-developed patient, in no apparent distress. But confused SKIN: No rashes, warm and dry HEAD: Atraumatic. Normocephalic. EYES: Pupils equal round and reactive. Extraocular motions intact. No scleral icterus. ENT: Nose without bleeding, or drainage, Airway patent. NECK: Trachea midline. Supple CARDIOVASCULAR: Irregularly irregular no murmurs, gallops, or rubs. RESPIRATORY: Fair air entry bilaterally. No wheezes, rales, or rhonchi. GASTROINTESTINAL: Abdomen soft, non-tender, nondistended. Positive bowel sounds MUSCULOSKELETAL: Extremities without clubbing, cyanosis, or edema. Pedal pulses appreciated on the right lower extremity, very faint on the left lower extremity NEUROLOGICAL: Awake and alert but confused. Moves all extremity. Normal speech.no focal neurological deficit A/P Assessment and Plan S/P extubation after hypovolemic shock from major lower GI bleed. He has received 12 units of blood and has now started actively bleeding again for the 3rd time in 72 hours. 08/25: Bled again last night, now stable. Tagged red cell study does not show a source. 08/26: Stable hemodynamics and Hgb, No bleeding. 08/27: Stable, no signs of bleeding 08/28: Hemoglobin continued to drop 7.8 today, will repeat at 1800, if less than 7 will transfuse and notify GI Hypernatremia with hypokalemia>> change iv fluid to half-normal saline with KCl at 80 cc/h for 1500 , repeat BMP at 1800 and in a.m. 08/29: GI bleed: Angiogram yesterday was unremarkable to identify source of bleeding Appreciated surgery consultation, plan to monitor H&H closely, colonoscopy by GI today, if continue to lose blood he may go to our for laparotomy and colectomy Hyponatremia: Continue with half-normal saline increase rate to 100, monitor BMP and BNP patient later on sustain severe hypotension with systolic blood pressure in the 60s, the nurse started him on Jose Antonio-Synephrine with improvement up, however I given order to give 1 L of normal saline bolus to refill his tank, and to give another 500 cc bolus along with trying to wean off Jose Antonio-Synephrine, and if we cannot will consult manager bridge, ordered stat H&H now, will transfuse for hemoglobin less than 8. Critical care time 50 minutes 08/30/16: Patient still confused he looks clammy, he stated he had a bowel movement which is bloody today, his hemoglobin dropped to 5 last night and he was given packed red blood cells with cryoprecipitate. He had EGD and colonoscopy today report still pending, surgery also following they want to continue nonsurgical management with continuing monitoring H&H Hypernatremia: Still at 153, will switch to D5 water, his water deficit around 3.9 L, repeat BMP in a.m. D/W nurse any worsening in his situation or dropping in hemoglobin will notify surgery patient may need to go for laparoscopy Condition is critical 08/31/16: Patient confused, looks fatigued, he received 1 unit of packed red blood cells last night, he is obviously actively bleeding, all previous tests including bleeding scan, is entering angiography, EGD and colonoscopy could not verify the source of bleeding, surgery following, continue close monitoring Concern about left toe getting bluish and cold, patient has A. fib, watch out for embolus, however patient is contraindication for any anticoagulation due to his active GI bleeding situation is guarded and critical, will consult manager bridge for closer care and management A/P: GI bleed - probable left colon diverticular bleed ?? - PPI BID - GI , GS following - colonoscopy 08/22 w/o obvious source of bleed, - serial H&H -Bleeding scan, mesenteric angiogram did not specify source of bleeding - EGD and colonoscopy 08/30/16 Anemia of blood loss - transfuse for hemodynamic instability - transfuse to keep Hg > 8 (recent ACS) CAD - hold anticoagulation due to acute hemophage - supportive care - hold all antiplatelet meds Respiratory failure - intubated for an airway protection - extubated 08/23 Hypotension>> recurrent - blood loss - volume replacement REJI - volume loss - i.v. fluids resuscitation - monitor electrolytes and renal functions Atrial Fibrillation - rate controlled - resume home meds when hemodynamically stable, no anticoagulation Diabetes - SSI for euglycemia - hold p.o. meds GERD - PPI DVT/GI prophylaxis - SCDs/PPI BID Brock Kapoor MD Aug 31, 2016 10:47
--- NOTE | 2016-08-31 11:34 | HHI.CCPN ---
Subjective Remarks/Hospital Course S/P extubation after hypovolemic shock from major lower GI bleed. He has received 12 units of blood and has now started actively bleeding again for the 3rd time in 72 hours. 08/25: Bled again last night, now stable. Tagged red cell study does not show a source. 08/26: Stable hemodynamics and Hgb, No bleeding. 08/31: Patient has now received 20 units of blood in transfusion. Exhaustive search for bleeding site has not revealed a source. Now patient has markedly decreased pulses left foot. Objective Vital Signs Date Time Temp Pulse Resp B/P Pulse Ox O2 Delivery O2 Flow Rate FiO2 08/31/16 10:00 96 08/31/16 08:19 96 21 08/31/16 08:00 98.7 18 137/60 08/31/16 07:00 Room Air 08/30/16 21:00 2.00 Intake and Output 08/30/16 08/30/16 08/31/16 08:00 16:00 00:00 Intake Total 774 ml 1089 ml 1185 ml Output Total 1350 ml 725 ml 375 ml Balance -576 ml 364 ml 810 ml Result Diagram: 08/31/16 0808/31/16 0352 Objective Remarks GENERAL: Confused SKIN: Warm and dry. HEAD: Normocephalic.. NECK: Supple, airway widely patent. CARDIOVASCULAR: Irreg Irreg, no JVD. Rate controlled. RESPIRATORY: Breath sounds equal bilaterally. Strong cough. GASTROINTESTINAL: Abdomen soft, non-tender, nondistended. BS active. No guarding. MUSCULOSKELETAL: Right LE with loud doppler PT, DP. Left LE with loud popliteal doppler and very faint left PT, DP. Foot is viable, marginal. NEURO: Conversant. Moves 4 limbs spontaneously. TOM. A/P Problem List: (1) Hypovolemic shock ICD Code: R57.1 Status: Acute (2) Anemia ICD Code: D64.9 Status: Acute (3) Lower GI bleeding ICD Code: K92.2 Status: Acute (4) Anticoagulated ICD Code: Z79.01 Status: Acute (5) Acute kidney injury ICD Code: N17.9 Status: Acute Assessment and Plan GI bleed - probable left colon diverticular bleed ?? - PPI BID - GI following - colonoscopy 08/22 w/o obvious source of bleed, - serial H&H -total transfusion 20 units. Anemia of blood loss - transfuse for hemodynamic instability - transfuse to keep Hg > 8 (recent ACS) - transfuse 2 units, total 20 CAD - hold anticoagulation due to acute hemophage - supportive care - hold all antiplatelet meds Respiratory failure - intubated for an airway protection - extubated 08/23 Hypotension - blood loss - volume replacement - cardiogenic component? - Norsynephrine to keep MAP > 65 - Vasopressin at 0.04, taper now. REJI - volume loss - i.v. fluids resuscitation - monitor electrolytes and renal functions Atrial Fibrillation - rate controlled - resume home meds when hemodynamically stable, no anticoagulation Diabetes - SSI for euglycemia - hold p.o. meds GERD - PPI DVT/GI prophylaxis - SCDs/PPI BID Acute arterial insufficiency left leg -Not a candidate for anticoagulation with recent 20 unit blood loss. -Check LE doppler, if ratio consistent with threatened limb loss, consider thrombectomy with local heparin. Overall impression: Problematic bleeding persists, left foot concerning. Problem Qualifiers (1) Anemia: Qualified Code: D62 - Acute posthemorrhagic anemia Lamont Spear MD Aug 31, 2016 11:33
--- NOTE | 2016-08-31 18:13 | RADRPT ---
EXAM DATE/TIME: 08/31/2016 15:27 [facility] COMPARISON: No previous studies available for comparison. INDICATIONS : Dimished arterial pulses, decrease temperature in left leg and swelling. MEDICAL HISTORY : Congestive heart failure. Myocardial infarction. Hypercholesterolemia. A-Fib. Coronary artery disease . Hypertension. GERD. Melena. Gout. Diabetes. SURGICAL HISTORY : Appendectomy. ENCOUNTER: Initial ACUITY: 1 day PAIN SCORE: Nonresponsive. LOCATION: Bilateral legs. AREA EVALUATED: Bilateral legs. FINDINGS: RT dopplers Iliac A - 171 cm/s DIRECTOR CUSTOM - 183 cm/s DPA - 191 cm/s PROX SFA - 0 cm/s POP A PROX - 0 cm/s MID - 151 cm/s DIST - 81 cm/s LT dopplers ILIAC A - 148 cm/s DIRECTOR CUSTOM - 0 cm/s DPA - Non visualized SFA PROX - 0 cm/s MID - 31 cm/s DIST - 39 cm/s POP A PROX - 44 cm/s MID - 23 cm/s DIST - 29 cm/s CONCLUSION: Findings of proximal occlusion of superficial femoral arteries bilaterally. There is reconstitution d istally. CT angiography of the abdominal aorta and lower extremities is recommended for further evaluation if clinically indicated. Vasu Montanez MD on August 31, 2016 at 18:07 Board Certified Radiologist. This report was verified electronically.
--- NOTE | 2016-08-31 19:20 | HHI.GIFU ---
GI Follow-up Note Consult Follow-up Subjective: Patient laying in bed comfortably, confused .No further bleeding , hb relatively stable Sp egd/colon, suspect diverticular bleeding-left colon . Still npo Objective: PHYSICAL EXAMINATION: Vitals signs stable No fever Vital Signs Date Time Temp Pulse Resp B/P Pulse Ox O2 Delivery O2 Flow Rate FiO2 08/31/16 18:00 97 08/31/16 16:00 99 08/31/16 16:00 98.7 101 18 164/70 97 08/31/16 14:00 99 08/31/16 12:00 98.7 97 24 148/65 93 08/31/16 12:00 96 HEENT: Pupils round and reactive to light; normocephalic; atraumatic; no jaundice. Throat is clear. NECK: Neck is supple, no JVD, no lymphadenopathy. CHEST: Chest is clear to auscultation and percussion. CARDIAC: Regular rate and rhythm with no murmur gallop or rubs. ABDOMEN: Soft, nondistended, nontender; no hepatosplenomegaly; bowel sounds are present in all four quadrants. EXTREMITIES: No clubbing, cyanosis, or edema. SKIN: Normal; no rash; no jaundice. OFFICE ADMINISTRATION: No focal deficits; alert , confused Available Data (labs, X- Rays, Procedues) : Laboratory Tests Test 08/30/16 08/30/16 08/30/16 08/30/16 00:15 00:50 05:55 21:10 Hemoglobin 6.8 GM/DL 8.1 GM/DL 7.2 GM/DL Hematocrit 19.3 % 23.6 % 21.2 % Blood Type A POSITIVE Crossmatch Leukocyte-Reduced Red Blood Cells Blood Bank Comment Sodium Level 153 MEQ/L Potassium Level 3.7 MEQ/L Chloride Level 123 MEQ/L Carbon Dioxide Level 19.6 MEQ/L Anion Gap 10 MEQ/L Blood Urea Nitrogen 29 MG/DL Creatinine 1.66 MG/DL Estimat Glomerular Filtration 41 ML/MIN Rate Random Glucose 93 MG/DL Calcium Level 6.9 MG/DL Protein Corrected Calcium 9.0 MG/DL B-Type Natriuretic Peptide 688 PG/ML Total Protein 3.5 GM/DL Test 08/31/16 08/31/16 08/31/16 03:52 08:27 14:25 Sodium Level 150 MEQ/L Potassium Level 3.3 MEQ/L Chloride Level 120 MEQ/L Carbon Dioxide Level 19.0 MEQ/L Anion Gap 11 MEQ/L Blood Urea Nitrogen 29 MG/DL Creatinine 1.70 MG/DL Estimat Glomerular Filtration 40 ML/MIN Rate Random Glucose 121 MG/DL Calcium Level 7.3 MG/DL Protein Corrected Calcium 9.1 MG/DL Total Protein 4.0 GM/DL Hemoglobin 8.0 GM/DL Hematocrit 22.9 % Blood Type A POSITIVE Antibody Screen NEGATIVE ASSESSMENT/PLAN: recurrent gi bleeding -s/p extensive work-up , no clear source identified Based on egd/colonoscopy findings suspect diverticular bleeding-left colon Recommendation clear liquid diet, may consider tpn if prolonged npo status ppi if recurrent bleeding consider repeating bleeding scan It was a pleasure seeing Vasu Kovacs Thank you for this consult. Entered by: Vero Palencia MD Aug 31, 2016 19:19
--- NOTE | 2016-08-31 21:05 | MB ---
cc: DAVIE DESOUZA DATE OF CONSULTATION: 08/31/2016 REASON FOR CONSULTATION: Ischemia of the left leg, gastrointestinal bleeding, hypocoagulable state, coronary artery disease. HISTORY OF PRESENT DISEASE: This 75 year-old male presented to the emergency room on the 21 of August with a massive lower GI bleed. The patient was admitted to ICU and worked up. While no study was positive including red tag scan, arteriogram, or colonoscopy, in combination of all three especially with colonoscopy. It appears that the source of bleeding was most likely left colon, which is of course the most probable statistical site as well due to diverticulosis and AVM. The patient did well for a few days, received about 20 units of blood, yet developed cool left leg. The patient clearly cannot be anticoagulated and the problem is what to do with this situation and clenching diagnosis as well as therapy. It should be noted that the patient recently had a heart attack apparently in July and was discharged from [facility]. He also has atrial fibrillation to make things worse. PAST MEDICAL HISTORY: 1. Myocardial infarction. 2. Congestive heart failure. 3. Coronary artery disease. 4. Diabetes. 5. Gout. 6. Hypertension. 7. Hypercholesterolemia. PAST SURGICAL HISTORY: 1. Appendectomy. 2. Coronary artery bypass grafting. 3. Colonoscopy. SOCIAL HISTORY: The patient does not smoke or drink. He is 75 years old. REVIEW OF SYSTEMS: The patient is currently in ICU. He is awake, alert, but somewhat confused with mild encephalopathy and mild neurocognitive deficit. PHYSICAL EXAMINATION: The patient is a 75 year-old male in no acute distress, appearing slightly pale. HEENT: Normocephalic. No trauma to the head. Pupils equal and rective. Extraocular muscles intact. Neck: Bilateral carotid pulses. No bruits. Chest: Bilateral breath sounds, decreased over the both lung purdy consistent with moderate degree of COPD. Heart: Irregular rhythm. The patient has a slow A-fib, heart rate is anywhere from 80 to 90. Abdomen: Obese, soft. Active bowel sounds. No rebound, no guarding, no masses. Extremities: The patient has actually palpable femoral pulses. He has some bruising over the right groin where he had previous angiography. He has dopplerable popliteal pulses, bilateral, stronger on the right. He also has dorsalis pedis, posterior tibial bilateral, but on the left very sluggish. Right foot is warm. Left foot is cool but not cyanotic. Sensation is preserved. The patient moves all extremities. IMPRESSION AND RECOMMENDATION: This is a very complex situation. On one hand, the patient has a GI bleed and any therapy that would require anticoagulation could be deadly. On the other hand, the patient does have a cool leg, and cannot be anticoagulated. The most likely site of acute occlusion is a partial obstructing thrombus somewhere in the superficial femoral artery going toward the popliteal artery above the knee. I do not believe the disease is below the knee. At this point I would tailor the therapy as follows: Because of elevated creatinine, I would do selective angiogram of the left leg and inject a bit of dye to see what this looks like. If the patient has occlusion of superficial femoral artery, then he will need arterial embolectomy. This can be done without anticoagulation very rapidly with the hope that we can restore the blood flow swiftly without having to occlude the vessel for more than maybe 30 seconds and then use sparingly heparin just in a local fashion. On the other hand, if this is not possible, or the patient rebleeds, then he will need left colon resection anastomosis and then thromboembolectomy of the leg with repair. If the patient rebleeds, regardless of his leg, he will need colon resection, so there is a fairly significant chance the patient may end up needing colon resection anyway, but any of these situations is highly risky and any of the proposed procedures is fairly risky because of patient's recent heart attack. In other words, there is no good answer here except to do an arteriogram, do rapid embolectomy, understanding that the patient is at a high-risk of myocardial reinfarction during anesthesia and that there is always the possibility the patient will need a colon resection anyway. I have explained this to the patient. I will explain this to his and this is the only course of therapy beside doing nothing which may not be a good idea either. I thank you very much for the referral. Critical care time: 50 minutes. Carter ZEE /8:33 PM 8:51 PM
[2016-09-01] VITALS (23 sets, daily range): BP systolic 144–176; BP diastolic 64–96; PULSE 88–135; RESP 17–23; TEMP 94–98.7; O2SAT 0–100
[2016-09-01] MEDS: CHLORHEXIDINE GLUCONATE 2 % 1 PACK (2 CLOTHS) TOP SCH (04:00)
[2016-09-01] MEDS: METOCLOPRAMIDE HCL 10 MG/2 ML VIAL IV PUSH SCH ×3 (06:10→22:00)
[2016-09-01] MEDS: PANTOPRAZOLE SODIUM 40 MG VIAL IV SCH ×2 (06:10→18:00)
[2016-09-01 07:45] LABS: AUTOMATED NEUTROPHIL # 5.6 TH/MM3 (1.8-7.7); BASOPHIL % 0.6 % (0.0-2.0); EOSINOPHIL # 0.5 TH/MM3 (0-0.4); EOSINOPHIL % 6.1 % (0.0-4.0); HEMATOCRIT 21.7 % (39.0-51.0); LYMPH % 10.1 % (9.0-44.0); LYMPHOCYTE # 0.8 TH/MM3 (1.0-4.8); MEAN CELL VOLUME 85.3 FL (80.0-100.0); MEAN CORPUSCULAR HEMOGLOBIN 29.3 PG (27.0-34.0); MEAN CORPUSCULAR HGB CONC 34.4 % (32.0-36.0); NEUT % 74.2 % (16.0-70.0); PLATELET COUNT 98 TH/MM3 (150-450); RED BLOOD COUNT 2.54 MIL/MM3 (4.50-5.90); RED CELL DISTRIBUTION WIDTH 16.4 % (11.6-17.2); WHITE BLOOD COUNT 7.5 TH/MM3 (4.0-11.0)
[2016-09-01 07:47] LABS: HEMO FLAGS AUTO DIFF
[2016-09-01] MEDS: CHLORHEXIDINE 0.12% (ORAL KIT) 15 ML CUP MT SCH (07:52)
[2016-09-01] MEDS: SODIUM CHLORIDE 0.9% FLUSH 5 ML FLUSH IV FLUSH SCH ×2 (07:53→21:00)
[2016-09-01] MEDS: DEXTROSE 5% IN WATE 1000ML INJ 1,000 ML IV SCH ×2 (07:53→18:00)
[2016-09-01 08:11] LABS: BICARBONATE 22.2 MEQ/L (21.0-32.0); POTASSIUM 3.4 MEQ/L (3.5-5.1)
[2016-09-01 08:29] LABS: CALCIUM-PROTEIN CORRECTED 9.1 MG/DL (8.5-10.1)
[2016-09-01 08:39] LABS: BANDS 1 % (0-6); EOSINOPHILS 4 % (0-4); METAMYELOCYTES 1 % (0-1); MYELOCYTES 2 % (0-0); NEUTROPHIL # MANUAL DIFF 6.2 TH/MM3 (1.8-7.7); POLYS (SEG NEUTROPHILS) 79 % (16-70); WBC DIFF SAMPLE 100
[2016-09-01 08:41] LABS: PLATELET ESTIMATE SMEAR LOW (NORMAL); PLATELET MORPHOLOGY NORMAL (NORMAL); SCAN/DIFF FINAL DIFF MANUAL
[2016-09-01] MEDS: POTASSIUM CHLOR 40 MEQ PREMIX 100 ML IV PRN (11:11)
[2016-09-01] MEDS ORDERED: SODIUM BICARBONATE 8.4% INJ 50 MEQ/50 ML SYR IV ONE ×2 (12:00→18:00)
[2016-09-01] MEDS ORDERED: PHENYLEPH/NS 1000 MCG/10 ML SYR IV ONE (12:00)
[2016-09-01] MEDS ORDERED: CALCIUM CHLORIDE 10% SOLN 1 GRAM/10 ML SYR IV ONE ×2 (12:00→18:00)
[2016-09-01] MEDS ORDERED: ATROPINE SULFATE 1 MG/ML VIAL IV PUSH ONE (12:00)
[2016-09-01] MEDS ORDERED: NORMOSOL R INJ 3,000 ML IV ONE (12:00)
[2016-09-01] MEDS ORDERED: PHENYLEPHRINE HCL 10 MG/ML VIAL IV ONE (12:00)
[2016-09-01] MEDS ORDERED: ePHEDrine/NS 50 MG/5 ML SYR IV ONE (12:00)
--- NOTE | 2016-09-01 12:41 | HHI.CCPN ---
Subjective Remarks/Hospital Course S/P extubation after hypovolemic shock from major lower GI bleed. He has received 12 units of blood and has now started actively bleeding again for the 3rd time in 72 hours. 08/25: Bled again last night, now stable. Tagged red cell study does not show a source. 08/26: Stable hemodynamics and Hgb, No bleeding. 08/31: Patient has now received 20 units of blood in transfusion. Exhaustive search for bleeding site has not revealed a source. Now patient has markedly decreased pulses left foot. 09/01: Threatened limb loss left leg due to acute arterial insufficiency. Discussed with Dr. Carty who will explore leg. Will transfuse 1 unit in preparation for OR. Objective Vital Signs Date Time Temp Pulse Resp B/P Pulse Ox O2 Delivery O2 Flow Rate FiO2 09/01/16 10:00 94 09/01/16 08:00 97.6 20 162/72 92 08/31/16 19:11 21 08/31/16 07:00 Room Air 08/30/16 21:00 2.00 Intake and Output 08/31/16 08/31/16 09/01/16 08:00 16:00 00:00 Intake Total 734 ml 826 ml 751 ml Output Total 1500 ml 750 ml 525 ml Balance -766 ml 76 ml 226 ml Result Diagram: 09/01/1672909/01/16729 Objective Remarks GENERAL: Confused SKIN: Warm and dry. HEAD: Normocephalic.. NECK: Supple, airway widely patent. CARDIOVASCULAR: Irreg Irreg, no JVD. Rate controlled. RESPIRATORY: Breath sounds equal bilaterally. Strong cough. GASTROINTESTINAL: Abdomen soft, non-tender, nondistended. BS active. No guarding. MUSCULOSKELETAL: Right LE with loud doppler PT, DP. Left LE with loud popliteal doppler and very faint left PT, DP. Foot is viable, marginal. NEURO: Conversant. Moves 4 limbs spontaneously. TOM. A/P Problem List: (1) Hypovolemic shock ICD Code: R57.1 Status: Acute (2) Anemia ICD Code: D64.9 Status: Acute (3) Lower GI bleeding ICD Code: K92.2 Status: Acute (4) Anticoagulated ICD Code: Z79.01 Status: Acute (5) Acute kidney injury ICD Code: N17.9 Status: Acute Assessment and Plan GI bleed - probable left colon diverticular bleed ?? - PPI BID - GI following - colonoscopy 08/22 w/o obvious source of bleed, - serial H&H -total transfusion 20 units. Anemia of blood loss - transfuse for hemodynamic instability - transfuse to keep Hg > 8 (recent ACS) - Transfuse 1 unit today. Total 21 units since GI bleed. CAD - hold anticoagulation due to acute hemophage - supportive care - hold all antiplatelet meds Respiratory failure - intubated for an airway protection - extubated 08/23 Hypotension - blood loss - volume replacement - cardiogenic component? - Norsynephrine to keep MAP > 65 - Vasopressin at 0.04, taper now. REJI - volume loss - i.v. fluids resuscitation - monitor electrolytes and renal functions Atrial Fibrillation - rate controlled - resume home meds when hemodynamically stable, no anticoagulation Diabetes - SSI for euglycemia - hold p.o. meds GERD - PPI DVT/GI prophylaxis - SCDs/PPI BID Acute arterial insufficiency left leg -Threatened limb loss, consider thrombectomy with local heparin. Overall impression: Problematic bleeding persists, left foot concerning. Arrangements made to explore left leg. Problem Qualifiers (1) Anemia: Qualified Code: D62 - Acute posthemorrhagic anemia Lamont Spear MD Sep 01, 2016 12:41
--- NOTE | 2016-09-01 13:15 | HHI.PR ---
Subjective Subjective Notes Resting in bed Upset because there is a lot of noise in the hallway Objective Vitals/I&O Vital Signs Date Time Temp Pulse Resp B/P Pulse Ox O2 Delivery O2 Flow Rate FiO2 09/01/16 12:00 97.9 93 20 176/74 94 08/31/16 19:11 21 08/31/16 07:00 Room Air 08/30/16 21:00 2.00 Labs Laboratory Tests Test 08/31/16 09/01/16 14:25 07:30 Blood Type A POSITIVE Antibody Screen NEGATIVE White Blood Count 7.5 Red Blood Count 2.54 Hemoglobin 7.5 Hematocrit 21.7 Mean Corpuscular Volume 85.3 Mean Corpuscular Hemoglobin 29.3 Mean Corpuscular Hemoglobin 34.4 Concent Red Cell Distribution Width 16.4 Platelet Count 98 Mean Platelet Volume 8.1 Neutrophils (%) (Auto) 74.2 Lymphocytes (%) (Auto) 10.1 Monocytes (%) (Auto) 9.0 Eosinophils (%) (Auto) 6.1 Basophils (%) (Auto) 0.6 Neutrophils # (Auto) 5.6 Lymphocytes # (Auto) 0.8 Monocytes # (Auto) 0.7 Eosinophils # (Auto) 0.5 Basophils # (Auto) 0.0 CBC Comment AUTO DIFF Differential Total Cells 100 Counted Neutrophils % (Manual) 79 Band Neutrophils % 1 Lymphocytes % 7 Monocytes % 6 Eosinophils % 4 Neutrophils # (Manual) 6.2 Metamyelocytes 1 Myelocytes 2 Differential Comment FINAL DIFF MANUAL Platelet Estimate LOW Platelet Morphology Comment NORMAL Polychromasia 2.0 Sodium Level 147 Potassium Level 3.4 Chloride Level 116 Carbon Dioxide Level 22.2 Anion Gap 9 Blood Urea Nitrogen 24 Creatinine 1.62 Estimat Glomerular Filtration 42 Rate Random Glucose 103 Calcium Level 7.4 Protein Corrected Calcium 9.1 Total Protein 4.2 Cardiovascular: Regular Lungs: Clear Abdomen: Non-distended, Non-tender, Other (obese abdomen ) Extremities: No edema A/P Assessment and Plan 75 year old male with LGIB -RN reports no bloody stool last night -Hmg today 7.5 -EGD/Colonoscopy yesterday shows blood from transverse colon to rectum with no active bleeding with significant diverticulosis -Continue monitoring Hmg; transfuse as needed -Patient is a poor surgical candidate -Will continue non-operative treatment Attending Statement The exam, history, and the medical decision-making described in the above note were completed with the assistance of the mid-level provider. I reviewed and agree with the findings presented. I attest that I had a [id number] encounter with the patient on the same day, and personally performed and documented my assessment and findings in the medical record. Abdominal exam non-surgical, will follow closely, at risk for recurrent bleeding Haley Calloway Sep 01, 2016 13:15 Colt Smiley MD Oct 03, 2016 00:22
--- NOTE | 2016-09-01 15:06 | HHI.GIFU ---
Subjective Remarks Up in chair this morning. No n/v/abdominal pain. No bleeding. Was nPO for possible procedure with CVT today. (Winsome Logan) Objective Vitals I&O Vital Signs Date Time Temp Pulse Resp B/P Pulse Ox O2 Delivery O2 Flow Rate FiO2 09/01/16 14:30 98.7 09/01/16 14:00 97 09/01/16 13:50 97.9 09/01/16 12:00 97.9 93 20 176/74 94 09/01/16 12:00 93 09/01/16 10:00 94 09/01/16 08:00 88 09/01/16 08:00 97.6 99 20 162/72 92 09/01/16 06:00 97 09/01/16 04:00 94 09/01/16 04:00 98.7 94 20 155/69 96 09/01/16 02:00 90 09/01/16 00:00 98.1 98 17 156/96 99 09/01/16 00:00 98 08/31/16 22:00 91 08/31/16 20:00 88 08/31/16 20:00 98.2 88 20 159/67 95 08/31/16 19:11 96 21 08/31/16 18:00 97 08/31/16 16:00 99 08/31/16 16:00 98.7 101 18 164/70 97 I/O 08/31/16 08/31/16 08/31/16 09/01/16 09/01/16 09/01/16 07:00 15:00 23:00 07:00 15:00 23:00 Intake Total 734 ml 826 ml 751 ml 790 ml 1056 ml Output Total 1500 ml 750 ml 525 ml 450 ml 400 ml Balance -766 ml 76 ml 226 ml 340 ml 656 ml IV Total 734 ml 826 ml 751 ml 790 ml 806 ml Packed Cells 250 ml Output Urine Total 1500 ml 750 ml 525 ml 450 ml 400 ml # Bowel Movements 0 0 0 0 Laboratory Laboratory Tests Test 09/01/16 09/01/16 07:30 12:40 White Blood Count 7.5 Red Blood Count 2.54 Hemoglobin 7.5 Hematocrit 21.7 Mean Corpuscular Volume 85.3 Mean Corpuscular Hemoglobin 29.3 Mean Corpuscular Hemoglobin 34.4 Concent Red Cell Distribution Width 16.4 Platelet Count 98 Mean Platelet Volume 8.1 Neutrophils (%) (Auto) 74.2 Lymphocytes (%) (Auto) 10.1 Monocytes (%) (Auto) 9.0 Eosinophils (%) (Auto) 6.1 Basophils (%) (Auto) 0.6 Neutrophils # (Auto) 5.6 Lymphocytes # (Auto) 0.8 Monocytes # (Auto) 0.7 Eosinophils # (Auto) 0.5 Basophils # (Auto) 0.0 CBC Comment AUTO DIFF Differential Total Cells 100 Counted Neutrophils % (Manual) 79 Band Neutrophils % 1 Lymphocytes % 7 Monocytes % 6 Eosinophils % 4 Neutrophils # (Manual) 6.2 Metamyelocytes 1 Myelocytes 2 Differential Comment FINAL DIFF MANUAL Platelet Estimate LOW Platelet Morphology Comment NORMAL Polychromasia 2.0 Sodium Level 147 Potassium Level 3.4 Chloride Level 116 Carbon Dioxide Level 22.2 Anion Gap 9 Blood Urea Nitrogen 24 Creatinine 1.62 Estimat Glomerular Filtration 42 Rate Random Glucose 103 Calcium Level 7.4 Protein Corrected Calcium 9.1 Total Protein 4.2 Blood Type A POSITIVE Crossmatch Leukocyte-Reduced Red Blood Cells Blood Bank Comment Imaging Last Impressions Lower Extremity Ultrasound 08/31/16 0000 Signed Impressions: Service Date/Time: Wednesday, August 31, 2016 15:27 - CONCLUSION: Findings of proximal occlusion of superficial femoral arteries bilaterally. There is reconstitution distally. CT angiography of the abdominal aorta and lower extremities is recommended for further evaluation if clinically indicated. Vasu Montanez MD Foot X-Ray 08/29/16 0000 Signed Impressions: Service Date/Time: Monday, August 29, 2016 15:17 - CONCLUSION: No acute abnormality is seen. There is chronic change as described above. Uziel Cooper MD Ankle X-Ray 08/29/16 0000 Signed Impressions: Service Date/Time: Monday, August 29, 2016 15:04 - CONCLUSION: 1. Soft-tissue swelling at the ankle without a fracture seen. 2. 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 Uziel Cooper MD Abdominal Angiography 08/28/16 0000 Signed Impressions: Service Date/Time: Sunday, August 28, 2016 17:58 - CONCLUSION: 1. 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 2. The bypass of course excludes access to the origin of the ZACHARY. 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 3. No active hemorrhage identified in the celiac or SMA. Ephraim Garcia MD GI Bleed Scan Nuclear Medicine 08/24/16 0000 Signed Impressions: Service Date/Time: Wednesday, August 24, 2016 14:53 - CONCLUSION: A GI bleed is not seen. Uziel Cooper MD Chest X-Ray 08/23/16 0600 Signed Impressions: Service Date/Time: Tuesday, August 23, 2016 04:16 - CONCLUSION: Satisfactory support line and tube positioning. Slight interval improvement in aeration. Uziel Munoz MD Physical Exam HEENT: Normocephalic; atraumatic. CHEST: CTA CARDIAC: RRR ABDOMEN: Soft, nondistended, nontender; no hepatosplenomegaly; bowel sounds are present in all four quadrants. EXTREMITIES: BLE edema, worse in LLE, decreased pulse in left foot. SKIN: Generalized pallor WIG MAKER: Sedated on a vent (Winsome Logan) Assessment and Plan Plan ASSESSMENT: - Lower GI bleed/anemia. S/P incomplete colonoscopy due to suboptimal prep on ( 08/22/16) -----> diverticulosis, no signs of active bleeding, S/P EGD/Colonoscopy (09/01/16)----> Based on egd/colonoscopy findings suspect diverticular bleeding-left colon. No active bleed. H/H 7.5/21.7. - REJI with electrolyte abnormalities. Creat 1.62. - CAD, CABG, A-fib, on Xarelto per attending Plan: - Heart healthy diet - Cont. Protonix - Cont. to monitor hh - Transfuse as needed - Bleeding scan if actively bleeding - Notify GI for active bleed - Supportive care - Patient seen and examined by Dr. Monroy and myself and this note is written on her behalf. (Winsome Logan) Physician Comments update stat call was received around 4 45 pm today -massive lower gi bleeding , patient intubated, receiving prbc went to asses patient, pale, large amount of fresh blood from rectum discussed with dr Mason Babcock-IR-no role of angiogram for lower gi bleeding as ZACHARY cannot be accessed due previous graft based on recent egd/colonoscopy report, indication that recurrent bleeding is from colon, most likely left possible diverticular bleed, no indication of aortointestinal fistulae on imaging studies discussed with general surgery and vascular surgery dr. Grullon , interventional radiology dr.Dan Babcock and medical claims analyst dr Rodriguez , all in agreement that emergency surgery will be best approach at this time arrangement with or made for emergent surgery high risk in view of multiple medical problems (Vero Monroy MD) Winsome Logan Sep 01, 2016 15:06 Vero Monroy MD Sep 01, 2016 18:18
[2016-09-01] MEDS ORDERED: NOREPINEPHRINE-DEXTROSE DRIP 250 ML IV ONE ×3 (16:49→23:21)
[2016-09-01] MEDS ORDERED: ROCURONIUM INJ 50 MG/5 ML VIAL ONE (16:58)
[2016-09-01] MEDS ORDERED: MIDAZOLAM HCL 5 MG/ML VIAL (1 ML) ONE (16:58)
[2016-09-01 17:05] LABS: HEMATOCRIT 21.4 % (39.0-51.0); REVIEW FLAG FINAL
[2016-09-01] MEDS ORDERED: CALCIUM CHLORIDE 10% SOLN 1 GRAM/10 ML SYR ONE (17:09)
[2016-09-01 17:14] LABS: INTERNATIONAL NORMALIZED RATIO 1.1 RATIO; PROTHROMBIN TIME - PATIENT 12.7 SEC (9.8-11.6)
[2016-09-01] MEDS ORDERED: ATROPINE SULFATE 1 MG/10 ML SYRINGE ONE (17:26)
[2016-09-01] MEDS ORDERED: LIDOCAINE HCL 2% 100 MG/5 ML SYRINGE ONE (17:26)
[2016-09-01] MEDS ORDERED: EPINEPHrine HCL (1:10,000) 1 MG/10 ML SYRINGE ONE (17:26)
[2016-09-01 17:28] LABS: BLOOD GAS VENOUS BASE EXCESS -8.1 mmol/L (-2-2); BLOOD GAS VENOUS HCO3 18 mmol/L (22-26); BLOOD GAS VENOUS O2 CONTENT 9.8 Vol % (9.0-17.0); BLOOD GAS VENOUS O2 HGB SAT 76 % (70-76); BLOOD GAS VENOUS PCO2 39 mmHg (44-48); BLOOD GAS VENOUS PO2 43 mmHg (35-40); BLOOD GAS VENOUS pH 7.27 (7.360-7.400); TEMP CORR TO 98.6
[2016-09-01] MEDS ORDERED: SODIUM BICARBONATE 8.4% INJ 50 MEQ/50 ML SYR ONE (17:28)
[2016-09-01 17:29] LABS: CRITICAL VALUE YES; DRAW SITE IV; FIO2 100 %; OXYGEN DEVICE VENTILATOR; STAT YES; VENT SETTINGS PRVC 18/550/5+/1.0IT
--- NOTE | 2016-09-01 17:29 | HHI.CCPN ---
Subjective Remarks/Hospital Course S/P extubation after hypovolemic shock from major lower GI bleed. He has received 12 units of blood and has now started actively bleeding again for the 3rd time in 72 hours. 08/25: Bled again last night, now stable. Tagged red cell study does not show a source. 08/26: Stable hemodynamics and Hgb, No bleeding. 08/31: Patient has now received 20 units of blood in transfusion. Exhaustive search for bleeding site has not revealed a source. Now patient has markedly decreased pulses left foot. 09/01: Threatened limb loss left leg due to acute arterial insufficiency. Discussed with Dr. Carty who has observed from arteriogram that patient has interrupted inflow at the left common iliac; thrombectomy not beneficial in the context of extensive pelvic collaterals and probably harmful. Patient started bleeding profusely from rectum, BRB. Systolic blood pressure dropped from 146 to 62 and patient became clammy, cool. Pulse to 132. Levophed started at 20 mics /min. After 4 units prbcs infused, levophed to 5 mics/min and SBP 118. P 102. He will be taken immediately to the OR now for colectomy. Most likely site is left/sigmoid colon. Objective Vital Signs Date Time Temp Pulse Resp B/P Pulse Ox O2 Delivery O2 Flow Rate FiO2 09/01/16 17:17 99 100 09/01/16 16:00 91 09/01/16 16:00 97.7 23 144/64 08/31/16 07:00 Room Air 08/30/16 21:00 2.00 Intake and Output 08/31/16 08/31/16 09/01/16 08:00 16:00 00:00 Intake Total 734 ml 826 ml 751 ml Output Total 1500 ml 750 ml 525 ml Balance -766 ml 76 ml 226 ml Result Diagram: 09/01/16 1640 09/01/16 0730 Objective Remarks GENERAL: Confused SKIN: Cool, damp. HEAD: Normocephalic.. NECK: Supple, orally intubated. CARDIOVASCULAR: Irreg Irreg, no JVD. Rate 133 RESPIRATORY: Breath sounds equal bilaterally. Tachypnea. GASTROINTESTINAL: Abdomen soft, non-tender, nondistended. BS active. No guarding. Bright blood per rectum, large amount fresh clots. MUSCULOSKELETAL: Cool, tepid. NEURO: Lethargic when pressure low. Moves 4 limbs spontaneously. TOM. A/P Problem List: (1) Hypovolemic shock ICD Code: R57.1 Status: Acute (2) Anemia ICD Code: D64.9 Status: Acute (3) Lower GI bleeding ICD Code: K92.2 Status: Acute (4) Anticoagulated ICD Code: Z79.01 Status: Acute (5) Acute kidney injury ICD Code: N17.9 Status: Acute Assessment and Plan GI bleed - probable left colon diverticular bleed ?? - PPI BID - GI following - colonoscopy 08/22 w/o obvious source of bleed, - serial H&H -total transfusion 25 units - Bleeding again large amount. Anemia of blood loss - transfuse for hemodynamic instability - transfuse to keep Hg > 8 (recent ACS) - Transfuse 4 unit now Total 25 units since GI bleed. -T&C 4 FFP, 1 platelets CAD - hold anticoagulation due to acute hemophage - supportive care - hold all antiplatelet meds Respiratory failure - intubated for an airway protection - extubated 08/23 Hypotension - blood loss - volume replacement - cardiogenic component? - Levophed REJI - volume loss - i.v. fluids resuscitation - monitor electrolytes and renal functions Atrial Fibrillation - rate controlled - resume home meds when hemodynamically stable, no anticoagulation Diabetes - SSI for euglycemia - hold p.o. meds GERD - PPI DVT/GI prophylaxis - SCDs/PPI BID Acute arterial insufficiency left leg -Threatened limb loss. Overall impression: Hypovolemic shock for 3rd time in recent days. Critically ill and undergoing massive transfusion. Will go immediately to OR for colectomy. Critical Care 48 mins aside from procedures. Problem Qualifiers (1) Anemia: Qualified Code: D62 - Acute posthemorrhagic anemia Lamont Spear MD Sep 01, 2016 17:29
--- NOTE | 2016-09-01 17:37 | PD.PROCEDR ---
Procedure Note Procedure DX: Respiratory Failure, Hypovolemic Shock OP: Orotracheal intubation ([id number]) Procedure: Versed 5 mg iv followed by bag mask ventilation. Rocuronium 50 mg iv. Intubated orally with 8.0 tube. Position confirmed with breath sounds, CO2 production, improved sats to 100%. Lamont Spear MD Sep 01, 2016 17:37
[2016-09-01] MEDS ORDERED: MIDAZOLAM HCL 5 MG/ML VIAL (1 ML) IV ONE (17:45)
[2016-09-01] MEDS ORDERED: ROCURONIUM INJ 50 MG/5 ML VIAL IV ONE (18:00)
--- NOTE | 2016-09-01 18:01 | PD.CAR.PN ---
CVT Progress Note Subjective/Hospital Course: This 75 year-old male presented to the emergency room on the 21 of August with a massive lower GI bleed. The patient was admitted to ICU and worked up. While no study was positive including red tag scan, arteriogram, or colonoscopy, in combination of all three especially with colonoscopy. It appears that the source of bleeding was most likely left colon, which is of course the most probable statistical site as well due to diverticulosis and AVM. The patient did well for a few days, received about 20 units of blood, yet developed cool left leg. The patient clearly cannot be anticoagulated and the problem is what to do with this situation and clenching diagnosis as well as therapy. It should be noted that the patient recently had a heart attack apparently in July and was discharged from [facility] He also has atrial fibrillation to make things worse. Patient the has somewhat cooler left foot and clearly somewhat diminished blood flow to this leg Compared to the right on the left patient has only dopplerable femoral pulse very weak popliteal pulse also dopplerable very weak and then the dorsalis pedis and posterior tibial pulses which are +1 as opposed to the right leg where the pulses are much stronger although also only dopplerable I reviewed the patient's arteriogram preformed in the course of localization of his GI bleed. On the aortogram there is an open right common iliac artery through which the catheter was introduced into aorta however on the left side this ends at the very bifurcation between the bifurcation and groin they're only collateral vessels and these reconstitutes into a common femoral artery below the inguinal ligament Patient had surgery on this side and its evident the patient had aortic toe iliac graft placed many years ago which probably occluded at some point however patient had enough collaterals that the leg stayed viable At this point there is no surgical intervention that we could do to improve this blood flow as far as the inflow is concerned. I do not believe the patient has thrombosis or embolism to the left leg because he would have a hard time during an embolus when the inflow is completely occluded and only supplied by collaterals At this point I believe patient's left leg is not as well perfuses the right leg , but certainly there is no critical ischemia The GI bleed takes precedence and no vascular intervention is indicated at this time The exam, history, and the medical decision-making described in the above note were completed with the assistance of the mid-level provider. I reviewed and agree with the findings presented. I attest that I had a [id number] encounter with the patient on the same day, and personally performed and documented my assessment and findings in the medical record. Critical care time 40 minutes. Objective: Vital Signs Date Time Temp Pulse Resp B/P Pulse Ox O2 Delivery O2 Flow Rate FiO2 09/01/16 17:17 99 100 09/01/16 16:00 91 09/01/16 16:00 97.7 91 23 144/64 97 09/01/16 14:30 98.7 09/01/16 14:00 97 09/01/16 13:50 97.9 09/01/16 12:00 97.9 93 20 176/74 94 09/01/16 12:00 93 09/01/16 10:00 94 09/01/16 08:00 88 09/01/16 08:00 97.6 99 20 162/72 92 09/01/16 06:00 97 09/01/16 04:00 94 09/01/16 04:00 98.7 94 20 155/69 96 09/01/16 02:00 90 09/01/16 00:00 98.1 98 17 156/96 99 09/01/16 00:00 98 08/31/16 22:00 91 08/31/16 20:00 88 08/31/16 20:00 98.2 88 20 159/67 95 08/31/16 19:11 96 21 08/31/16 18:00 97 Labs: Laboratory Tests Test 09/01/16 09/01/16 09/01/16 09/01/16 07:30 12:40 16:40 16:49 White Blood Count 7.5 TH/MM3 (4.0-11.0) Red Blood Count 2.54 MIL/MM3 (4.50-5.90) Hemoglobin 7.5 GM/DL 7.4 GM/DL (13.0-17.0) (13.0-17.0) Hematocrit 21.7 % 21.4 % (39.0-51.0) (39.0-51.0) Mean Corpuscular Volume 85.3 FL (80.0-100.0) Mean Corpuscular Hemoglobin 29.3 PG (27.0-34.0) Mean Corpuscular Hemoglobin 34.4 % Concent (32.0-36.0) Red Cell Distribution Width 16.4 % (11.6-17.2) Platelet Count 98 TH/MM3 (150-450) Mean Platelet Volume 8.1 FL (7.0-11.0) Neutrophils (%) (Auto) 74.2 % (16.0-70.0) Lymphocytes (%) (Auto) 10.1 % (9.0-44.0) Monocytes (%) (Auto) 9.0 % (0.0-8.0) Eosinophils (%) (Auto) 6.1 % (0.0-4.0) Basophils (%) (Auto) 0.6 % (0.0-2.0) Neutrophils # (Auto) 5.6 TH/MM3 (1.8-7.7) Lymphocytes # (Auto) 0.8 TH/MM3 (1.0-4.8) Monocytes # (Auto) 0.7 TH/MM3 (0-0.9) Eosinophils # (Auto) 0.5 TH/MM3 (0-0.4) Basophils # (Auto) 0.0 TH/MM3 (0-0.2) CBC Comment AUTO DIFF Differential Total Cells 100 Counted Neutrophils % (Manual) 79 % (16-70) Band Neutrophils % 1 % (0-6) Lymphocytes % 7 % (9-44) Monocytes % 6 % (0-8) Eosinophils % 4 % (0-4) Neutrophils # (Manual) 6.2 TH/MM3 (1.8-7.7) Metamyelocytes 1 % (0-1) Myelocytes 2 % (0-0) Differential Comment FINAL DIFF MANUAL Platelet Estimate LOW (NORMAL) Platelet Morphology Comment NORMAL (NORMAL) Polychromasia 2.0 % (0.0-1.9) Sodium Level 147 MEQ/L (136-145) Potassium Level 3.4 MEQ/L (3.5-5.1) Chloride Level 116 MEQ/L (98-107) Carbon Dioxide Level 22.2 MEQ/L (21.0-32.0) Anion Gap 9 MEQ/L (5-15) Blood Urea Nitrogen 24 MG/DL (7-18) Creatinine 1.62 MG/DL (0.60-1.30) Estimat Glomerular Filtration 42 ML/MIN (>89) Rate Random Glucose 103 MG/DL (74-106) Calcium Level 7.4 MG/DL (8.5-10.1) Protein Corrected Calcium 9.1 MG/DL (8.5-10.1) Total Protein 4.2 GM/DL (6.4-8.2) Blood Type A POSITIVE A POSITIVE Crossmatch Leukocyte-Reduced Leukocyte-Reduced Red Blood Red Blood Cells Cells Blood Bank Comment Prothrombin Time 12.7 SEC (9.8-11.6) Prothromb Time International 1.1 RATIO Ratio Test 09/01/16 09/01/16 17:10 17:20 Crossmatch Leukocyte-Reduced Red Blood Cells Blood Bank Comment Blood Gas Puncture Site IV Blood Gas Patient Temperature 98.6 Venous Blood pH 7.27 (7.360-7.400) Venous Blood Partial Pressure 39 mmHg (44-48) CO2 Venous Blood Partial Pressure 43 mmHg (35-40) O2 Venous Blood HCO3 18 mmol/L (22-26) Venous Blood Oxygen Saturation 76 % (70-76) Venous Blood Oxygen Content 9.8 Vol % (9.0-17.0) Venous Blood Base Excess -8.1 mmol/L (-2-2) Oxygen Delivery Device VENTILATOR Blood Gas Ventilator Setting [facility] 18/550/5+/1.0IT Blood Gas Inspired Oxygen 100 % Result Diagram: 09/01/16 1640 09/01/16 0730 Carter Grullon MD Sep 01, 2016 18:00
[2016-09-01 18:35] LABS: BLOOD GAS BASE EXCESS -3.2 mmol/L (-2-2); BLOOD GAS CARBOXYHEMOGLOBIN 2.2 % (0-4); BLOOD GAS HCO3 20 mmol/L (22-26); BLOOD GAS METHEMOGLOBIN 1.2 % (0-2); BLOOD GAS O2 HGB SATURATION 97 % (90-100); BLOOD GAS OXYGEN CONTENT 11.4 Vol % (12.0-20.0); BLOOD GAS PCO2 28 mmHg (38-42); BLOOD GAS PO2 375 mmHg (61-120); BLOOD GAS TOTAL HGB 7.7 G/DL (12.0-16.0); CRITICAL VALUE NO; NUMBER OF ARTERIAL PUNCTURES 1; STAT YES; TEMP CORR TO 98.6
[2016-09-01] MEDS ORDERED: metroNIDAZOLE 500 MG INJ 100 ML IV ONE (18:56)
[2016-09-01 20:31] LABS: AUTOMATED NEUTROPHIL # 4.4 TH/MM3 (1.8-7.7); BASOPHIL % 0.4 % (0.0-2.0); EOSINOPHIL # 0.2 TH/MM3 (0-0.4); EOSINOPHIL % 2.9 % (0.0-4.0); HEMATOCRIT 21.3 % (39.0-51.0); LYMPH % 10.4 % (9.0-44.0); LYMPHOCYTE # 0.6 TH/MM3 (1.0-4.8); MEAN CELL VOLUME 86.4 FL (80.0-100.0); MEAN CORPUSCULAR HEMOGLOBIN 30.3 PG (27.0-34.0); MEAN CORPUSCULAR HGB CONC 35.1 % (32.0-36.0); MONO % 7.8 % (0.0-8.0); NEUT % 78.5 % (16.0-70.0); PLATELET COUNT 42 TH/MM3 (150-450); RED BLOOD COUNT 2.46 MIL/MM3 (4.50-5.90); RED CELL DISTRIBUTION WIDTH 14.8 % (11.6-17.2); WHITE BLOOD COUNT 5.6 TH/MM3 (4.0-11.0)
[2016-09-01 20:32] LABS: HEMO FLAGS AUTO DIFF
--- NOTE | 2016-09-01 20:34 | HHI.PR ---
Immediate Post Op Note Procedure Date: Sep 01, 2016 Pre Op Diagnosis: (1) Hypovolemic shock (2) Lower GI bleeding Post Op Diagnosis: (1) Hypovolemic shock (2) Lower GI bleeding Surgeon: Colt Smiley Grounds/Maintenance Specialist(s): none Procedure: Ex Lap subtotal colectomy Findings: blood in the left colon only Complications: none Specimen(s) removed: transverse, left and sigmoid colon Estimated blood loss: 400ml Anesthesia: General Drains: MANOLO IVF, PRBC, FFP Patient to: [facility] Patient Condition: Critical Colt Smiley MD Sep 01, 2016 20:34
[2016-09-01 20:36] LABS: INTERNATIONAL NORMALIZED RATIO 1.5 RATIO; PROTHROMBIN TIME - PATIENT 17.3 SEC (9.8-11.6)
[2016-09-01] MEDS ORDERED: DOBUTamine PREMIX DRIP 250 ML ONE ×2 (20:37→23:56)
[2016-09-01] MEDS: DOBUTamine INJ 500 MG in DEXTROSE 5% IN WATER INJ 210 ML IV SCH ×2 (20:45)
[2016-09-01 20:58] LABS: POTASSIUM 3.8 MEQ/L (3.5-5.1)
[2016-09-01 21:04] LABS: BANDS 11 % (0-6); EOSINOPHILS 1 % (0-4); METAMYELOCYTES 3 % (0-1); NEUTROPHIL # MANUAL DIFF 5.4 TH/MM3 (1.8-7.7); PLATELET ESTIMATE SMEAR LOW (NORMAL); PLATELET MORPHOLOGY NORMAL (NORMAL); POLYS (SEG NEUTROPHILS) 82 % (16-70); SCAN/DIFF FINAL DIFF MANUAL; TOXIC GRANULATION 1+ (NORMAL); WBC DIFF SAMPLE 100
[2016-09-01] MEDS ORDERED: PHENYLEPHRINE HCL 10 MG/ML VIAL ONE ×2 (21:14→23:21)
[2016-09-01] MEDS ORDERED: TERBUTALINE INJ 1 MG/ML AMP SQ PRN (21:15)
[2016-09-01] MEDS: PHENYLEPHRINE INJ 40 MG in DEXTROSE 5% IN WATE 500 ML INJ 496 ML IV SCH ×2 (21:20)
[2016-09-01 21:45] LABS: CALCIUM-PROTEIN CORRECTED 8.9 MG/DL (8.5-10.1)
[2016-09-01 23:13] LABS: BLOOD GAS BASE EXCESS -6.2 mmol/L (-2-2); BLOOD GAS CARBOXYHEMOGLOBIN 1.5 % (0-4); BLOOD GAS HCO3 17 mmol/L (22-26); BLOOD GAS METHEMOGLOBIN 0.7 % (0-2); BLOOD GAS O2 HGB SATURATION 98 % (90-100); BLOOD GAS OXYGEN CONTENT 13.4 Vol % (12.0-20.0); BLOOD GAS PCO2 25 mmHg (38-42); BLOOD GAS PO2 392 mmHg (61-120); CRITICAL VALUE NO; OXYGEN DEVICE VENTILATOR; TEMP CORR TO 98.6
[2016-09-01 23:14] LABS: DRAW SITE RT FEMORAL; FIO2 100 %; NUMBER OF ARTERIAL PUNCTURES 1; STAT NO; ULNAR PULSE PRESENT; VENT SETTINGS PRVC/AC
[2016-09-02] VITALS (21 sets, daily range): BP systolic 30–108; BP diastolic 28–74; PULSE 82–130; RESP 22–23; TEMP 95–97.7; O2SAT 99–100
[2016-09-02] MEDS: PHENYLEPHRINE INJ 40 MG in DEXTROSE 5% IN WATE 500 ML INJ 496 ML IV SCH ×6 (00:25→06:56)
[2016-09-02] MEDS: MORPHINE SULFATE 4 MG/ML INJ IV PRN ×5 (00:36→23:32)
[2016-09-02] MEDS: CHLORHEXIDINE GLUCONATE 2 % 1 PACK (2 CLOTHS) TOP SCH (02:27)
[2016-09-02] MEDS ORDERED: NOREPINEPHRINE-DEXTROSE DRIP 250 ML IV ONE (02:36)
[2016-09-02] MEDS ORDERED: PHENYLEPHRINE HCL 10 MG/ML VIAL ONE (02:38)
[2016-09-02 02:57] LABS: AUTOMATED NEUTROPHIL # 7.3 TH/MM3 (1.8-7.7); BASOPHIL % 0.2 % (0.0-2.0); EOSINOPHIL % 0.3 % (0.0-4.0); LYMPH % 4.6 % (9.0-44.0); LYMPHOCYTE # 0.4 TH/MM3 (1.0-4.8); MEAN CELL VOLUME 88.3 FL (80.0-100.0); MEAN CORPUSCULAR HEMOGLOBIN 30.9 PG (27.0-34.0); MONO % 7.2 % (0.0-8.0); NEUT % 87.7 % (16.0-70.0); PLATELET COUNT 26 TH/MM3 (150-450); RED BLOOD COUNT 2.83 MIL/MM3 (4.50-5.90); RED CELL DISTRIBUTION WIDTH 13.4 % (11.6-17.2); WHITE BLOOD COUNT 8.4 TH/MM3 (4.0-11.0)
[2016-09-02 03:05] LABS: HEMO FLAGS AUTO DIFF
[2016-09-02 03:15] LABS: BICARBONATE 19.2 MEQ/L (21.0-32.0); POTASSIUM 3.6 MEQ/L (3.5-5.1)
[2016-09-02] MEDS: SODIUM CHLOR 0.9% 1000 ML INJ 1,000 ML IV SCH ×4 (03:15→22:27)
[2016-09-02 03:41] LABS: BANDS 35 % (0-6); METAMYELOCYTES 2 % (0-1); PLATELET ESTIMATE SMEAR LOW (NORMAL); PLATELET MORPHOLOGY NORMAL (NORMAL); POLYS (SEG NEUTROPHILS) 58 % (16-70); SCAN/DIFF FINAL DIFF MANUAL; WBC DIFF SAMPLE 100
[2016-09-02 03:42] LABS: CALCIUM-PROTEIN CORRECTED 9.1 MG/DL (8.5-10.1)
[2016-09-02] MEDS: DOBUTamine INJ 500 MG in DEXTROSE 5% IN WATER INJ 210 ML IV SCH ×6 (03:45→23:38)
[2016-09-02] MEDS: metroNIDAZOLE 500 MG INJ 100 ML IV SCH ×3 (04:11→20:47)
[2016-09-02] MEDS: METOCLOPRAMIDE HCL 10 MG/2 ML VIAL IV PUSH SCH ×3 (04:12→20:48)
[2016-09-02] MEDS: PANTOPRAZOLE SODIUM 40 MG VIAL IV SCH ×2 (04:12→17:05)
--- NOTE | 2016-09-02 04:23 | PD.PROCEDR ---
Procedure Note Procedure ARTERIAL LINE (A-Line) PLACEMENT Date: 09/02/16 Time: 0023 Indication: Hemodynamic monitoring A time-out was completed verifying correct patient, procedure, site, positioning , and special equipment if applicable. Allens test was performed to ensure adequate perfusion. The patients right axilla was prepped and draped in sterile fashion. 1% Lidocaine was used to anesthetize the area. A 18G Arrow arterial line was introduced into the axillary artery. The catheter was threaded over the guide wire and the needle was removed with appropriate pulsatile blood return. The catheter was then sutured in place to the skin and a sterile dressing applied. Perfusion to the extremity distal to the point of catheter insertion was checked and found to be adequate. Estimated Blood Loss: 1 ml The patient tolerated the procedure well and there were no complications. Nathan Ornelas MD Sep 02, 2016 04:23
[2016-09-02] MEDS ORDERED: CALCIUM GLUCONATE INJ 2 GM in SODIUM CHLORIDE 0.9% INJ 100 ML IV ONE (04:30)
[2016-09-02] MEDS ORDERED: ALBUMIN HUMAN 5% 25 GM/500 ML BOTTLE IV ONE (04:30)
[2016-09-02] MEDS ORDERED: LACTATED RINGER'S 1000 ML INJ 1,000 ML IV ONE ×2 (04:30)
[2016-09-02] MEDS: NOREPINEPHRINE 4 MG/D5W 250 ML IV SCH ×4 (05:33→23:32)
[2016-09-02] MEDS ORDERED: TERBUTALINE INJ 1 MG/ML AMP SQ PRN (06:15)
--- NOTE | 2016-09-02 06:18 | HHI.CCPN ---
Subjective Remarks/Hospital Course S/P extubation after hypovolemic shock from major lower GI bleed. He has received 12 units of blood and has now started actively bleeding again for the 3rd time in 72 hours. 08/25: Bled again last night, now stable. Tagged red cell study does not show a source. 08/26: Stable hemodynamics and Hgb, No bleeding. 08/31: Patient has now received 20 units of blood in transfusion. Exhaustive search for bleeding site has not revealed a source. Now patient has markedly decreased pulses left foot. 09/01: Threatened limb loss left leg due to acute arterial insufficiency. Discussed with Dr. Carty who has observed from arteriogram that patient has interrupted inflow at the left common iliac; thrombectomy not beneficial in the context of extensive pelvic collaterals and probably harmful. Patient started bleeding profusely from rectum, BRB. Systolic blood pressure dropped from 146 to 62 and patient became clammy, cool. Pulse to 132. Levophed started at 20 mics /min. After 4 units prbcs infused, levophed to 5 mics/min and SBP 118. P 102. He will be taken immediately to the OR now for colectomy. Most likely site is left/sigmoid colon. 09/02: Hypovolemic shock last night, hypotension persists. S/P subtotal colectomy now with SBP 55. Acid-base balance acceptable, peripheral perfusion marginal. Clearly still in shock. Excellent and aggressive volume and coag replacement overnight. Objective Vital Signs Date Time Temp Pulse Resp B/P Pulse Ox O2 Delivery O2 Flow Rate FiO2 09/02/16 04:41 100 100 09/02/16 04:16 22 09/02/16 04:00 103 09/02/16 04:00 95.1 46/35 09/01/16 21:30 Ventilator 08/30/16 21:00 2.00 Intake and Output 09/01/16 09/01/16 09/02/16 08:00 16:00 00:00 Intake Total 790 ml 1056 ml 3418 ml Output Total 450 ml 400 ml 710 ml Balance 340 ml 656 ml 2708 ml Result Diagram: 09/02/16 0245 09/02/16 024 Other Results Laboratory Tests Test 09/01/16 09/01/16 17:20 18:30 Blood Gas Puncture Site IV UNKNOWN Blood Gas Patient Temperature 98.6 98.6 Venous Blood pH 7.27 (7.360-7.400) Venous Blood Partial Pressure 39 mmHg (44-48) CO2 Venous Blood Partial Pressure 43 mmHg (35-40) O2 Venous Blood HCO3 18 mmol/L (22-26) Venous Blood Oxygen Saturation 76 % (70-76) Venous Blood Oxygen Content 9.8 Vol % (9.0-17.0) Venous Blood Base Excess -8.1 mmol/L (-2-2) Oxygen Delivery Device VENTILATOR Blood Gas Ventilator Setting [facility] 18/550/5+/1.0IT Blood Gas Inspired Oxygen 100 % Blood Gas HCO3 20 mmol/L (22-26) Blood Gas Base Excess -3.2 mmol/L (-2-2) Blood Gas Oxygen Saturation 97 % (90-100) Arterial Blood pH 7.47 (7.380-7.420) Arterial Blood Partial 28 mmHg (38-42) Pressure CO2 Arterial Blood Partial 375 mmHg Pressure O2 (61-120) Arterial Blood Oxygen Content 11.4 Vol % (12.0-20.0) Arterial Blood 2.2 % (0-4) Carboxyhemoglobin Arterial Blood Methemoglobin 1.2 % (0-2) Blood Gas Hemoglobin 7.7 G/DL (12.0-16.0) Objective Remarks GENERAL: Shock SKIN: Cool. HEAD: Normocephalic.. NECK: Supple, orally intubated. CARDIOVASCULAR: Irreg Irreg, no JVD. Rate 118 - 126 RESPIRATORY: Breath sounds equal bilaterally. Tachypnea. Mechanical ventilation. GASTROINTESTINAL: Abdomen soft, non-tender, nondistended. BS active. No guarding. Bright blood per rectum, large amount fresh clots. MUSCULOSKELETAL: Cool, legs marginally perfused. NEURO: Opens eyes to loud voice. A/P Problem List: (1) Hypovolemic shock ICD Code: R57.1 Status: Acute (2) Lower GI bleeding ICD Code: K92.2 Status: Acute (3) Anticoagulated ICD Code: Z79.01 Status: Acute (4) Acute kidney injury ICD Code: N17.9 Status: Acute (5) Anemia ICD Code: D64.9 Status: Acute Assessment and Plan GI bleed - probable left colon diverticular bleed ?? - PPI BID - GI following - colonoscopy 08/22 w/o obvious source of bleed, - serial H&H -total transfusion 30 units - s/p subtotal colectomy. Anemia of blood loss - transfuse for hemodynamic instability - transfuse to keep Hg > 8 (recent ACS) - Transfuse 4 unit now Total 30 units since GI bleed. -T&C 4 FFP, 1 platelets CAD - hold anticoagulation due to acute hemophage - supportive care - hold all antiplatelet meds Respiratory failure - intubated for an airway protection - extubated 08/23 -Reintubated 09/01 for shock Hypotension - blood loss - volume replacement - cardiogenic component? - Levophed, vasopressin, dobutamine REJI - volume loss - i.v. fluids resuscitation - monitor electrolytes and renal functions Atrial Fibrillation - rate controlled - resume home meds when hemodynamically stable, no anticoagulation - rate well controlled Diabetes - SSI for euglycemia - hold p.o. meds GERD - PPI DVT/GI prophylaxis - SCDs/PPI BID Acute arterial insufficiency left leg -Threatened limb loss. Overall impression: Hypovolemic shock for 3rd time in recent days -> to OR for subtotal colectomy. Critically ill and unstable. Prognosis guarded. Critical Care 42 mins Problem Qualifiers (1) Anemia: Qualified Code: D62 - Acute posthemorrhagic anemia Lamont Spear MD Sep 02, 2016 06:18
[2016-09-02] MEDS ORDERED: CALCIUM CHLORIDE INJ 2 GM in SODIUM CHLORIDE 0.9% INJ 100 ML IV ONE (06:30)
[2016-09-02] MEDS: VASOPRESSIN INJ 40 UNITS in DEXTROSE 5% IN WATER 100ML INJ 98 ML IV SCH ×4 (06:32→20:48)
--- NOTE | 2016-09-02 06:52 | RADRPT ---
EXAM DATE/TIME: 09/02/2016 06:18 [place] COMPARISON: CHEST SINGLE AP, August 23, 2016, 4:16. INDICATIONS : Short of breath, hypoxemia MEDICAL HISTORY : Congestive heart failure. Myocardial infarction. Diabetes mellitus type II. GERD, A-fib SURGICAL HISTORY : Appendectomy. ENCOUNTER: Subsequent ACUITY: 1 week PAIN SCORE: Non-responsive. LOCATION: Bilateral chest FINDINGS: The endotracheal tube and central line remain in place. The NG tube has been removed. There is no p neumothorax. There is some increasing infiltrates in both lung bases, right greater than left. The he art size is enlarged but stable. No definite effusions. The bony structures are stable. CONCLUSION: Increasing bibasilar infiltrates, right greater than left. Ben Hartmann MD on September 02, 2016 at 6:50 Board Certified Radiologist. This report was verified electronically.
[2016-09-02] MEDS: PHENYLEPHRINE HCL 160 MG/D5W 484 ML ADMIX IV SCH ×6 (06:55→23:38)
[2016-09-02] MEDS: SODIUM CHLORIDE 0.9% FLUSH 5 ML FLUSH IV FLUSH SCH ×2 (08:04→20:48)
[2016-09-02] MEDS ORDERED: MIDAZOLAM HCL 5 MG/ML VIAL (1 ML) ONE (09:23)
[2016-09-02 09:41] LABS: BLOOD GAS VENOUS BASE EXCESS -7.1 mmol/L (-2-2); BLOOD GAS VENOUS HCO3 18 mmol/L (22-26); BLOOD GAS VENOUS O2 CONTENT 12.2 Vol % (9.0-17.0); BLOOD GAS VENOUS O2 HGB SAT 85 % (70-76); BLOOD GAS VENOUS PCO2 36 mmHg (44-48); BLOOD GAS VENOUS PO2 56 mmHg (35-40); BLOOD GAS VENOUS pH 7.32 (7.360-7.400); TEMP CORR TO 98.6
[2016-09-02 09:42] LABS: CRITICAL VALUE YES; OXYGEN DEVICE VENTILATOR
[2016-09-02 09:43] LABS: DRAW SITE CENTRAL LINE; FIO2 80 %; STAT YES
--- NOTE | 2016-09-02 10:37 | MR ---
cc: [facility]List DATE: 08/30/2016 REFERRING PHYSICIAN: TYPE OF PROCEDURE Upper endoscopy with colonoscopy REASON FOR PROCEDURE: GI bleed. CONSENT After the risks, benefits, alternatives, indications and limitations were explained to the patient's family consent was signed the informed about the risk of bleeding, perforation, oversedation, allergic reaction to the medication, missed lesion or failed procedure. PROCEDURE The patient was placed in the left lateral decubitus and after the patient was fully sedated by Anesthesia upper endoscope was gently sent to the oral cavity and under direct visualization esophagus was intubated then the scope was gently sent to the stomach advanced to the duodenum and the scope was slowly withdrawn and the mucosa was fully examined including color good, time and motility in the fundus retroflexion was performed then the scope was withdrawn and procedure terminated. He tolerated procedure well with no immediate complications. FINDINGS Normal upper endoscopy. COLONOSCOPY: While the patient was still sedated he was turned and colonoscopy was started prior to that rectal examination was performed which was suggestive of a presence of a large fecal balls and then the scope was gently sent the rectum advanced to cecum which was identified by ileocecal valve and appendical orifice and the scope was slowly withdrawn and the mucosa was fully examined including color, Texture, anatomy and motility in the rectum retroflexion was performed then the scope was withdrawn and procedure terminated. He tolerated procedure well with no immediate complication. Old blood seen up to the transverse mid-transverse aggressive washing was done afterwards no blood was seen just yellow stool which may indicate possible source of bleed from the mid transverse or lower aggressive washing was performed with at least 2 liters of water no fresh blood was seen, old blood noted severe diverticulosis sigmoid and descending colon most likely source of the bleeding but no active bleed at this time impacted stool in the rectum which was brown was disimpacted some polyps were seen but they were left alone due to recurrent GI bleed. We will need colonoscopy at a later time lipoma in the descending colon. No biopsy was performed secondary to recent bleed. RECOMMENDATIONS Agree with surgical evaluation Repeat bleeding scan if active bleeding Transfuse p.r.n. to keep hemoglobin more than eight, n.p.o. except medication may consider TPN if the patient will remain n.p.o. for a longer time. I would like to thank Dr. Kapoor for referring him to our office for consultation. MD Mariana Fox /10:02 AM /10:08 AM [facility]
--- NOTE | 2016-09-02 10:51 | PD.PROCEDR ---
Procedure Note Procedure DX: Circulatory Shock OP: Insertion Left Internal Jugular Central Venous Line (25044) Procedure: Left neck prepped and draped. Left internal jugular vein cannulated with thin walled needle and wire easily advanced. Catheter passed over wire to 19 cm. Lumens aspirated and flushed. Dressing applied. Loc cation confirmed with venous blood gas. CXR with line in good position, suitable for use. Lamont Spear MD Sep 02, 2016 10:51
--- NOTE | 2016-09-02 11:07 | RADRPT ---
EXAM DATE/TIME: 09/02/2016 10:33 [facility] COMPARISON: CHEST SINGLE AP, September 02, 2016, 6:18. INDICATIONS : Central line placement. MEDICAL HISTORY : Congestive heart failure. Myocardial infarction. Diabetes mellitus type II. GERD, A-fib SURGICAL HISTORY : Appendectomy. ENCOUNTER: Initial ACUITY: 1 day PAIN SCORE: Non-responsive. LOCATION: Left chest FINDINGS: AP portable view of the chest demonstrates a endotracheal tube with the tip just beyond the level of the clavicles. There is a stable right-sided central line with the tip projecting over the distal SVC . There is a left-sided central line with the tip also overlying the mid SVC. Heart size appears mildly enlarged and there is diffuse hazy opacity overlying the right hemithorax w ith obscuration of the right hemidiaphragm consistent with pleural fluid, atelectasis and consolidati on within the lung base. The left is grossly clear. CONCLUSION: Sided central line with the tip now lying over the mid SVC. Stable endotracheal tube and right-sided central line. Stable right lung exam. Brittanie Abel MD on September 02, 2016 at 11:04 Board Certified Radiologist. This report was verified electronically.
[2016-09-02 11:24] LABS: BLOOD GAS BASE EXCESS -7.3 mmol/L (-2-2); BLOOD GAS CARBOXYHEMOGLOBIN 1.2 % (0-4); BLOOD GAS HCO3 17 mmol/L (22-26); BLOOD GAS METHEMOGLOBIN 1.2 % (0-2); BLOOD GAS O2 HGB SATURATION 98 % (90-100); BLOOD GAS OXYGEN CONTENT 14.5 Vol % (12.0-20.0); BLOOD GAS PCO2 28 mmHg (38-42); BLOOD GAS PO2 316 mmHg (61-120); CRITICAL VALUE NO; OXYGEN DEVICE VENTILATOR; TEMP CORR TO 98.6; VENT SETTINGS PRVC/AC
[2016-09-02 11:25] LABS: DRAW SITE ART LINE; FIO2 70 %; STAT NO
[2016-09-02 12:15] LABS: AUTOMATED NEUTROPHIL # 6.9 TH/MM3 (1.8-7.7); BASOPHIL % 0.5 % (0.0-2.0); EOSINOPHIL # 0.1 TH/MM3 (0-0.4); EOSINOPHIL % 1.2 % (0.0-4.0); HEMATOCRIT 29.3 % (39.0-51.0); LYMPH % 9.9 % (9.0-44.0); LYMPHOCYTE # 0.9 TH/MM3 (1.0-4.8); MEAN CORPUSCULAR HEMOGLOBIN 30.4 PG (27.0-34.0); MEAN CORPUSCULAR HGB CONC 35.4 % (32.0-36.0); MONO % 8.4 % (0.0-8.0); PLATELET COUNT 32 TH/MM3 (150-450); RED CELL DISTRIBUTION WIDTH 16.1 % (11.6-17.2); WHITE BLOOD COUNT 8.7 TH/MM3 (4.0-11.0)
[2016-09-02 12:16] LABS: HEMO FLAGS AUTO DIFF
[2016-09-02 12:31] LABS: APTT (PATIENT) 40.8 SEC (24.3-30.1); INTERNATIONAL NORMALIZED RATIO 1.4 RATIO; PROTHROMBIN TIME - PATIENT 15.5 SEC (9.8-11.6)
[2016-09-02 12:50] LABS: BICARBONATE 18.3 MEQ/L (21.0-32.0); POTASSIUM 3.5 MEQ/L (3.5-5.1)
[2016-09-02 12:59] LABS: BANDS 35 % (0-6); CORRECTED NUCLEATED RBC 1 /100 WBC (0-0); EOSINOPHILS 1 % (0-4); NEUTROPHIL # MANUAL DIFF 7.8 TH/MM3 (1.8-7.7); POLYS (SEG NEUTROPHILS) 55 % (16-70); WBC DIFF SAMPLE 100
[2016-09-02 13:01] LABS: TOXIC GRANULATION 1+ (NORMAL)
[2016-09-02 13:02] LABS: PLATELET ESTIMATE SMEAR LOW (NORMAL); PLATELET MORPHOLOGY NORMAL (NORMAL)
[2016-09-02 13:04] LABS: SCAN/DIFF FINAL DIFF MANUAL
[2016-09-02 13:23] LABS: CALCIUM-PROTEIN CORRECTED 9.3 MG/DL (8.5-10.1)
[2016-09-02] MEDS: POTASSIUM CHLOR 40 MEQ PREMIX 100 ML IV PRN (14:30)
[2016-09-02] MEDS: SODIUM BICARBONATE 8.4% INJ 150 MEQ in WATER STERILE FOR INJ 850 ML IV SCH (18:05)
--- NOTE | 2016-09-02 19:05 | HHI.PR ---
Subjective Subjective Notes Intubated/Sedated Objective Vitals/I&O Vital Signs Date Time Temp Pulse Resp B/P Pulse Ox O2 Delivery O2 Flow Rate FiO2 09/02/16 18:00 95 09/02/16 16:02 100 40 09/02/16 16:00 97.7 22 90/57 09/01/16 21:30 Ventilator 08/30/16 21:00 2.00 Labs Laboratory Tests Test 09/01/16 09/02/16 09/02/16 09/02/16 22:58 00:00 02:45 09:23 Blood Gas Puncture Site RT FEMORAL CENTRAL LINE Blood Gas Patient Temperature 98.6 98.6 Blood Gas HCO3 17 Blood Gas Base Excess -6.2 Blood Gas Oxygen Saturation 98 Arterial Blood pH 7.45 Arterial Blood Partial 25 Pressure CO2 Arterial Blood Partial 392 Pressure O2 Arterial Blood Oxygen Content 13.4 Arterial Blood 1.5 Carboxyhemoglobin Arterial Blood Methemoglobin 0.7 Blood Gas Hemoglobin 9.0 Oxygen Delivery Device VENTILATOR VENTILATOR Blood Gas Ventilator Setting PRVC/AC Blood Gas Inspired Oxygen 100 80 Urine Osmolality 405 Urine Random Creatinine 72.2 Urine Random Sodium 53 White Blood Count 8.4 Red Blood Count 2.83 Hemoglobin 8.7 Hematocrit 25.0 Mean Corpuscular Volume 88.3 Mean Corpuscular Hemoglobin 30.9 Mean Corpuscular Hemoglobin 35.0 Concent Red Cell Distribution Width 13.4 Platelet Count 26 Mean Platelet Volume 8.0 Neutrophils (%) (Auto) 87.7 Lymphocytes (%) (Auto) 4.6 Monocytes (%) (Auto) 7.2 Eosinophils (%) (Auto) 0.3 Basophils (%) (Auto) 0.2 Neutrophils # (Auto) 7.3 Lymphocytes # (Auto) 0.4 Monocytes # (Auto) 0.6 Eosinophils # (Auto) 0.0 Basophils # (Auto) 0.0 CBC Comment AUTO DIFF Differential Total Cells 100 Counted Neutrophils % (Manual) 58 Band Neutrophils % 35 Lymphocytes % 3 Monocytes % 2 Neutrophils # (Manual) 8.0 Metamyelocytes 2 Differential Comment FINAL DIFF MANUAL Platelet Estimate LOW Platelet Morphology Comment NORMAL Sodium Level 144 Potassium Level 3.6 Chloride Level 113 Carbon Dioxide Level 19.2 Anion Gap 12 Blood Urea Nitrogen 22 Creatinine 1.58 Estimat Glomerular Filtration 43 Rate Random Glucose 352 Calcium Level 6.2 Protein Corrected Calcium 9.1 Total Protein 2.1 Venous Blood pH 7.32 Venous Blood Partial Pressure 36 CO2 Venous Blood Partial Pressure 56 O2 Venous Blood HCO3 18 Venous Blood Oxygen Saturation 85 Venous Blood Oxygen Content 12.2 Venous Blood Base Excess -7.1 Test 09/02/16 09/02/16 09/02/16 09/02/16 11:17 12:00 12:57 13:55 Blood Gas Puncture Site ART LINE Blood Gas Patient Temperature 98.6 Blood Gas HCO3 17 Blood Gas Base Excess -7.3 Blood Gas Oxygen Saturation 98 Arterial Blood pH 7.39 Arterial Blood Partial 28 Pressure CO2 Arterial Blood Partial 316 Pressure O2 Arterial Blood Oxygen Content 14.5 Arterial Blood 1.2 Carboxyhemoglobin Arterial Blood Methemoglobin 1.2 Blood Gas Hemoglobin 10.0 Oxygen Delivery Device VENTILATOR Blood Gas Ventilator Setting PRVC/AC Blood Gas Inspired Oxygen 70 White Blood Count 8.7 Red Blood Count 3.40 Hemoglobin 10.4 Hematocrit 29.3 Mean Corpuscular Volume 86.0 Mean Corpuscular Hemoglobin 30.4 Mean Corpuscular Hemoglobin 35.4 Concent Red Cell Distribution Width 16.1 Platelet Count 32 Mean Platelet Volume 9.7 Neutrophils (%) (Auto) 80.0 Lymphocytes (%) (Auto) 9.9 Monocytes (%) (Auto) 8.4 Eosinophils (%) (Auto) 1.2 Basophils (%) (Auto) 0.5 Neutrophils # (Auto) 6.9 Lymphocytes # (Auto) 0.9 Monocytes # (Auto) 0.7 Eosinophils # (Auto) 0.1 Basophils # (Auto) 0.0 CBC Comment AUTO DIFF Differential Total Cells 100 Counted Neutrophils % (Manual) 55 Band Neutrophils % 35 Lymphocytes % 7 Monocytes % 2 Eosinophils % 1 Neutrophils # (Manual) 7.8 Nucleated Red Blood Cells 1 Differential Comment FINAL DIFF MANUAL Toxic Granulation 1+ Platelet Estimate LOW Platelet Morphology Comment NORMAL Tear Drop Cells Red Cell Morphology Comment NORMAL Prothrombin Time 15.5 Prothromb Time International 1.4 Ratio Activated Partial 40.8 Thromboplast Time Fibrinogen 73 Sodium Level 139 Potassium Level 3.5 Chloride Level 109 Carbon Dioxide Level 18.3 Anion Gap 12 Blood Urea Nitrogen 20 Creatinine 1.45 Estimat Glomerular Filtration 48 Rate Random Glucose 274 Calcium Level 7.0 Protein Corrected Calcium 9.3 Total Protein 3.2 Blood Bank Comment Urine Eosinophils NONE SEEN Cardiovascular: Regular Lungs: Clear Abdomen: Other (colsotomy in place---stoma pink; no stool; incision with oozing ; MANOLO in place with large SS output --connected to LIWS) Extremities: Other (generalized edema ) A/P Assessment and Plan 75 year old male with LGIB -Taken to the OR emergently last night for rectal bleeding -POD1 Ex Lap and subtotal colectomy -Requiring high pressor support -Continue MANOLO to LIWS -NPO -Appreciate Palliative Care consult Attending Statement POD#1 ExLap for LGIB The exam, history, and the medical decision-making described in the above note were completed with the assistance of the mid-level provider. I reviewed and agree with the findings presented. I attest that I had a [id number] encounter with the patient on the same day, and personally performed and documented my assessment and findings in the medical record. Abdominal exam postoperative pain, stable Haley Calloway Sep 02, 2016 19:05 Colt Smiley MD Oct 03, 2016 00:23
[2016-09-02] MEDS: LACTATED RINGER'S 1000 ML INJ 1,000 ML IV SCH ×2 (19:30→20:31)
[2016-09-02] MEDS ORDERED: GELATIN 12 MM/7 MM FOAM ONE ×2 (23:01→23:07)
[2016-09-03] VITALS (18 sets, daily range): BP systolic 84–117; BP diastolic 57–71; PULSE 98–110; RESP 22–24; TEMP 97–98.4; O2SAT 99–100
[2016-09-03] MEDS: NOREPINEPHRINE 4 MG/D5W 250 ML IV SCH ×10 (01:04→17:10)
[2016-09-03] MEDS: SODIUM BICARBONATE 8.4% INJ 150 MEQ in WATER STERILE FOR INJ 850 ML IV SCH ×4 (02:05→18:10)
[2016-09-03] MEDS: CHLORHEXIDINE GLUCONATE 2 % 1 PACK (2 CLOTHS) TOP SCH (04:00)
[2016-09-03 04:19] LABS: AUTOMATED NEUTROPHIL # 6.9 TH/MM3 (1.8-7.7); BASOPHIL % 0.4 % (0.0-2.0); EOSINOPHIL # 0.3 TH/MM3 (0-0.4); EOSINOPHIL % 3.3 % (0.0-4.0); HEMATOCRIT 23.6 % (39.0-51.0); LYMPH % 9.3 % (9.0-44.0); LYMPHOCYTE # 0.8 TH/MM3 (1.0-4.8); MEAN CELL VOLUME 85.8 FL (80.0-100.0); MEAN CORPUSCULAR HEMOGLOBIN 30.9 PG (27.0-34.0); MONO % 8.1 % (0.0-8.0); NEUT % 78.9 % (16.0-70.0); PLATELET COUNT 34 TH/MM3 (150-450); RED BLOOD COUNT 2.75 MIL/MM3 (4.50-5.90); RED CELL DISTRIBUTION WIDTH 16.1 % (11.6-17.2); WHITE BLOOD COUNT 8.7 TH/MM3 (4.0-11.0)
[2016-09-03] MEDS: metroNIDAZOLE 500 MG INJ 100 ML IV SCH ×3 (04:27→19:00)
[2016-09-03 04:29] LABS: HEMO FLAGS AUTO DIFF
[2016-09-03 04:48] LABS: BICARBONATE 19.9 MEQ/L (21.0-32.0); POTASSIUM 3.4 MEQ/L (3.5-5.1)
[2016-09-03 05:08] LABS: CALCIUM-PROTEIN CORRECTED 8.1 MG/DL (8.5-10.1)
[2016-09-03] MEDS: METOCLOPRAMIDE HCL 10 MG/2 ML VIAL IV PUSH SCH ×3 (05:21→22:41)
[2016-09-03] MEDS: PANTOPRAZOLE SODIUM 40 MG VIAL IV SCH ×2 (05:21→17:25)
[2016-09-03] MEDS: VASOPRESSIN INJ 40 UNITS in DEXTROSE 5% IN WATER 100ML INJ 98 ML IV SCH ×4 (05:21→22:42)
[2016-09-03] MEDS: POTASSIUM CHLOR 40 MEQ PREMIX 100 ML IV PRN (05:21)
[2016-09-03] MEDS: DOBUTamine INJ 500 MG in DEXTROSE 5% IN WATER INJ 210 ML IV SCH ×10 (06:06→22:42)
[2016-09-03 06:56] LABS: BANDS 24 % (0-6); EOSINOPHILS 4 % (0-4); NEUTROPHIL # MANUAL DIFF 7.7 TH/MM3 (1.8-7.7); POLYS (SEG NEUTROPHILS) 64 % (16-70); SCAN/DIFF FINAL DIFF MANUAL; WBC DIFF SAMPLE 100
[2016-09-03 06:57] LABS: PLATELET ESTIMATE SMEAR LOW (NORMAL); PLATELET MORPHOLOGY NORMAL (NORMAL)
[2016-09-03] MEDS: SODIUM CHLORIDE 0.9% FLUSH 5 ML FLUSH IV FLUSH SCH ×2 (07:59→21:00)
[2016-09-03] MEDS: PHENYLEPHRINE HCL 160 MG/D5W 484 ML ADMIX IV SCH ×8 (08:21→22:42)
[2016-09-03] MEDS: MORPHINE SULFATE 4 MG/ML INJ IV PRN ×4 (08:39→20:21)
--- NOTE | 2016-09-03 10:43 | PD.CONS ---
Consult Service Palliative Care Consult Requested By Dr. Spear Primary Care Physician Vasu Tolentino MD Reason for Consultation a. To assist with evaluation and management of symptoms including:Pain ( generalized, and dyspnea). b. To assist medical decision maker(s) with: better understanding of current medical conditions; weighing benefits/burdens of medical treatment options; making medical treatment decisions. HPI History of Present Illness 75-year-old with past medical history of A. fib, cardiovascular disease, CHF, CAD, diabetes, gout, hypertension, ID, GERD was brought in the ER on 08/21/2016 today complaining of blood in stools. Patient is a custodial resident and found blood and clots in patient's diaper. Patient just come from [facility] after a heart attack and had just arrived in the custodial for rehabilitation. Patient has been on Xerelto. In the ER: * Temperature was 98.1, pulse is 90, respirations 16, blood pressure 74/62, pulse ox 100% * WBC was 13.7, H&H 8.7 and 26.4,plt 195 * Sodium 149, potassium is 4.5, chloride is 114, bicarbonate is 28.0. 77, creatinine is 2.1, * Patient's albumin was 2.5 * PT is 12.2, INR is 1.0, PTT is 21.2 * Chest x-ray shows cardiomegaly and finding was consistent with CHF. * Patient was given IVF for hypotension and the products for anemia. Ultrasound was done in the ER and shows active bleeding in the abdomen. CT scan was initially ordered but given patient's creatinine CT was held off. Critical medicine was consulted and was patient was transferred to the ICU. Customer Advisor evaluated patient, anticoagulation held, and IV fluids and blood products were given. Patient had respiratory distress subsequently was intubated, right IJ was inserted, right A-line was placed. GI was also consulted. 08/22/2016= GI evaluated patient and perform a colonoscopy. Colonoscopy incomplete to the ascending colon with suboptimal prep, there is upon the left side of the colon, but throughout the rest of the colon GI could not see active bleeding, or fresh blood. Patient remains on the ventilator, and remains in the ICU. 08/23-= patient extubated however*having lower GI bleeding again and went to hypovolemic shock. Patient received 12 units of blood. Require vasopressor support. 08/24-08/26/2016== Tag red blood cell studies does not show a source of bleeding and patient became hemodynamically more stable. Services was transferred to hospitalist service 08/27-== [facility] services., H&H was followed and has been steadily dropping. GI was reconsulted. IR reconsulted angiogram was performed and was negative for bleeding(or could not id source of bleed) Gen. surgery was also consulted for the time being they recommended nonsurgical management this patient appeared to stabilize the bleeding has stopped. It is noted that if despite minimal invasive treatment GI bleeding such as repeat angiography and colonoscopy, patient continues to bleed, surgery proceed to the operating room for exploratory and likely colectomy. 08/30 -08/31== course of hospitalization complicated by patient having significant pitting edema of lower extremity, confusion, continue anemia that required blood transfusion, hypernatremia, and concern about blood clots and embolus however patient given patient's contraindication for anticoagulation due to GI bleed patient is not on any anticoagulation. Care was again transferred to metal grinder on 08/31/2016. 08/31- Dr. Grullon consulted due to ischemic left leg. Angiogram was performed , and if possible to try to restore blood flow. If on the ohter hand that is not possible, probably will need colon resection, then thromboembloectomy of the leg with repair. 09/01 Pt started bleeding profusely from rectum, and systolic pressure dropped from 146 to 62. Again on pressors. Pt taken immediatly to [facility] for colectomy, left/sigmoid colon. Reintubated. 09/02- Hypovolemic shock, hyptension persist. Remains intubated. In summary: 75 year old with cardiac disease, came in with GI bleed. Course of hospitalization complicated by hypovolemic shock, anemia (inability to find source of bleed with taged red blood cell, and colonoscopy) respiratory failure , continue GI bleed, and ischemic left leg in which pt faced dilemma of not being able to anticoagulate due to GI bleed. Extubated on 08/23 but reintubated 09/01. Pt is s/p colectomy 09/01, but remains continues to bleed and have hypovolemic shock. Palliative care consulted to review goals of care. Colectomy performed 09/03- remains intubated, sedated. Hgb droped from 10.4 to 8.5 today, but appears bleeding have stopped. Cr 1.34. Pt on my visit was sleeping, not on sedation, easily awakens. He is painful and even slight touching, pt grimaces and is painful. Pt able to nod yes or no, and follow some directions. Pt is on 4 different pressors. Pt able to answer correctly On a clear mo day, the alexis is blue, in which he nods. When asked if on a well water lawn, the grass is pink, pt was not able to answer. He seems to be in pain discomfort. Could not review goals of care with pt due to discomfort, went back to sleep. Spoke with spouse over the phone, she is not sure if transportation is available to bring her to the hospital today. She was amenable to talk on the phone. Reviewed the course of pt's hospitalization, gi bleed, tests, ischemic left leg. Discussed my vist with patient my clinical impression today. Spoke to her and told her I have also d/w with metal grinder. Discussed the amount of pressors pt is on, the ventilator, benefits and risk of cpr/compressions and that I feel pt would mostly get trauma, and likely none of the benefits. Talked about life support and the challenges he face weaning of that, discussed peg and trach. Discussed about pt's known wishes. 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 Family appreciative of the information. at this time says, she wants to discuss with 2 people about this before making the decision, even concerning about code status. She understands if she desires to change code status, she can inform the nurse/ and or medical team. There is a schedule Family Meeting at 10am Wednesday 09/06. Function/Cognitive Trajectory recent hospitalization with ID, did not tolerate rehab, and was transferred to [place] quickly for GI bleed. Review of Systems ROS Limitations: Clinical Condition Cardiovascular: COMPLAINS OF: Dyspnea on Exertion Gastrointestinal: COMPLAINS OF: Bloody stools Psychiatric: COMPLAINS OF: Confusion Past Family Social History Coded Allergies: Cefuroxime sodium (Verified Allergy, Severe, Itching, 08/21/16) Levaquin (Verified Allergy, Severe, Itching, 08/21/16) Past Medical History Per EMR A-fib CAD high cholesterol Diabetes GERD Gout HTN ID Past Surgical History Per EMR Appendectomy CABG Reported Medications Centrum Men (Multiple Vitamins-Minerals) 1 Tab Tab 1 Tab PO DAILY Vitamin D-1000 (Cholecalciferol) 1,000 Unit Tab 1,000 Units PO DAILY Ascorbic Acid 500 Mg Tab 500 Mg PO DAILY Xarelto (Rivaroxaban) 20 Mg Tab 20 Mg PO DAILY Furosemide 20 Mg Tab 20 Mg PO DAILY Enalapril (Enalapril Maleate) 20 Mg Tab 20 Mg PO DAILY Atorvastatin (Atorvastatin Calcium) 10 Mg Tab 10 Mg PO HS Amlodipine (Amlodipine Besylate) 10 Mg Tab 10 Mg PO DAILY Allopurinol 300 Mg Tab 300 Mg PO DAILY Current Medications Medications (Trade) Dose Ordered Sig/Briseyda Route Start Time Stop Time Status Last Admin (NS Flush) 2 ml UNSCH PRN IV FLUSH 08/21/16 05:45 (NS Flush) 2 ml BID IV FLUSH 08/21/16 09:00 09/03/16 07:59 (Tylenol) 650 mg Q6H PRN PO 08/21/16 05:45 (Morphine Inj) 2 mg Q2H PRN IV 08/21/16 05:45 09/03/16 08:39 (Zofran Inj) 4 mg Q6H PRN IV 08/21/16 05:45 08/24/16 11:52 Miscellaneous Information 1 Q361D XX 08/21/16 05:45 (Chlorhexidine 2% Cloth) Taper DAILY@04 TOP 08/22/16 04:00 08/18/17 03:59 09/01/16 04:00 Chlorhexidine Gluconate 3 pack 3 pack UNSCH PRN TOP 08/21/16 05:45 (Diprivan 1000 Mg/100ml Inj) 100 ml @ 0 mls/hr TITRATE IV 08/22/16 04:30 08/23/16 04:14 (Reglan Inj) 5 mg Q8HR IV PUSH 08/22/16 05:00 09/03/16 05:21 Pantoprazole Sodium 40 mg 40 mg Q12H IV 08/22/16 06:00 09/03/16 05:21 (fentaNYL DRIP) 250 ml @ 0 mls/hr TITRATE IV 08/22/16 06:45 08/23/16 08:21 Midazolam HCl 2 mg 2 mg Q2H PRN IV PUSH 08/22/16 06:45 08/22/16 19:11 Potassium Chloride 100 ml @ 50 mls/hr Q2H PRN IV 08/23/16 07:30 (KCl 20 Meq Premix Inj) 100 ml @ 50 mls/hr Q2H PRN IV 08/23/16 07:30 Potassium Chloride 40 meq 40 meq UNSCH PRN PO/TUBE 08/23/16 07:30 08/28/16 12:06 Potassium Chloride 100 ml @ 25 mls/hr UNSCH PRN IV 08/23/16 07:30 09/03/16 05:21 Potassium Chloride 100 ml @ 50 mls/hr Q2H PRN IV 08/23/16 07:30 (Magnesium Sulfate Inj/NS Inj) 100 ml @ 50 mls/hr UNSCH PRN IV 08/23/16 07:30 Magnesium Oxide 800 mg 800 mg UNSCH PRN PO 08/23/16 07:30 (Magnesium Sulfate Inj/NS Inj) 100 ml @ 50 mls/hr UNSCH PRN IV 08/23/16 07:30 08/28/16 19:09 Potassium Phosphate 2000 mg 2,000 mg Q4H PRN PO 08/23/16 07:30 (Sodium Phosphate Inj/NS 250 ml Inj) 250 ml @ 42 mls/hr UNSCH PRN IV 08/23/16 07:30 (KCl 40 Meq/30 ml Liq) 40 meq UNSCH PRN PO/TUBE 08/23/16 07:30 Potassium Phosphate 2000 mg 2,000 mg UNSCH PRN PO/TUBE 08/23/16 07:30 Potassium Phosphate 30 mmol/ Sodium Chloride 260 ml @ 42 mls/hr UNSCH PRN IV 08/23/16 07:30 Metronidazole 100 ml @ 100 mls/hr Q8H IV 09/02/16 04:00 09/03/16 04:27 (Dobutrex Inj/ D5W Inj) 250 ml @ 9.71 mls/hr CONTINUOUS IV 09/01/16 20:45 09/03/16 06:06 Terbutaline Sulfate 1 mg 1 mg UNSCH PRN SQ 09/01/16 21:15 Norepinephrine Bitartrate 250 ml @ 0 mls/hr TITRATE IV 09/02/16 03:15 09/03/16 08:06 Sodium Chloride 1,000 ml @ 50 mls/hr Q20H IV 09/02/16 03:15 09/02/16 13:10 Vasopressin 40 units/Dextrose 100 ml @ 1.5 mls/hr Q24H IV 09/02/16 06:06 09/02/16 20:48 Phenylephrine HCl 160 mg/Dextrose 500 ml @ 0 mls/hr TITRATE IV 09/02/16 07:00 09/03/16 08:21 (Sodium Bicarbonate 8.4% Inj/Sterile Water For Inj) 1,000 ml @ 100 mls/hr Q10H IV 09/02/16 18:00 09/03/16 02:05 Family History ID Substance Use Tobacco:no Alcohol:no Prescription med abuse:no Illicits:no Psychosocial History . [phone] [facility], near [place]. . No children. Spiritual/Cultural Factors Buddhist Living Will: Never completed Health Care Surrogate: Never completed Durable Power of Estate Tax Examiner: Never completed Physical Exam Vital Signs Date Time Temp Pulse Resp B/P Pulse Ox O2 Delivery O2 Flow Rate FiO2 09/03/16 08:34 99 40 09/03/16 08:00 105 09/03/16 08:00 40 09/03/16 08:00 97.0 102 22 92/64 99 09/03/16 06:00 102 09/03/16 04:09 100 40 09/03/16 04:00 40 09/03/16 04:00 103 09/03/16 04:00 98.4 104 22 84/57 100 09/03/16 02:00 103 09/03/16 00:13 100 40 09/03/16 00:00 100 09/03/16 00:00 98.1 107 22 117/71 100 09/03/16 00:00 40 09/02/16 22:00 102 09/02/16 20:00 107 09/02/16 20:00 40 09/02/16 20:00 97.6 108 22 108/74 99 09/02/16 19:40 99 40 09/02/16 18:00 95 09/02/16 16:02 100 40 09/02/16 16:00 97.7 97 22 90/57 100 09/02/16 16:00 40 09/02/16 16:00 97 09/02/16 14:52 22 09/02/16 14:00 98 09/02/16 13:38 100 40 09/02/16 12:00 40 09/02/16 12:00 100 09/02/16 12:00 97.7 94 22 94/62 100 09/02/16 11:20 40 09/02/16 10:25 100 70 09/02/16 10:20 70 09/02/16 10:00 111 09/02/16 09/03/16 19:00 07:00 Intake Total 3900 ml 61396 ml Output Total 1750 ml 2225 ml Balance 2150 ml 7840 ml IV Total 3671 ml 47364 ml Cryoprecipitate 229 ml Output Urine Total 250 ml 800 ml Drainage Total 1500 ml 1425 ml Exam CONSTITUTIONAL/GENERAL: This is an adequately nourished patient, grimace and in distress. TUBES/LINES/DRAINS: drain s/p surgery. central line, intubated. SKIN: No jaundice, rashes, or lesions. Ecchymoses on upper extremities. No wounds seen anteriorly. Skin temperature appropriate. Not diaphoretic. HEAD: Atraumatic. Normocephalic. EYES: Pupils equal and round and reactive. Extraocular motions intact. No scleral icterus. No injection or drainage. Fundi not examined. ENT: Hearing grossly normal. Nose without bleeding or purulent drainage. ET tube in place NECK: Trachea midline. Supple, nontender. No palpable thyroid enlargement or nodularity. CARDIOVASCULAR: Regular rate and rhythm without murmurs, gallops, or rubs. No JVD. Peripheral pulses symmetric. RESPIRATORY/CHEST: decrease breath sound bilaterally. GASTROINTESTINAL: Abdomen soft, non-tender, nondistended. No hepato-splenomegaly , or palpable masses. No guarding. Bowel sounds present. GENITOURINARY: Without palpable bladder distension. House catheter in place. MUSCULOSKELETAL: Lower and upper ext edemetious. Pt have poor pulses bilaterally, discoloration of left leg. LYMPHATICS: No palpable cervical or supraclavicular adenopathy. NEUROLOGICAL: Awake and alert. Follow some commands, at times, at other times does not. Clearly uncomfortable, goes back to sleep. PSYCHIATRIC: appears anxious.. Diagnostic Tests Laboratory Laboratory Tests Test 08/31/16 09/01/16 09/01/16 09/01/16 14:25 07:30 12:40 16:40 Blood Type A POSITIVE A POSITIVE Antibody Screen NEGATIVE White Blood Count 7.5 TH/MM3 (4.0-11.0) Red Blood Count 2.54 MIL/MM3 (4.50-5.90) Hemoglobin 7.5 GM/DL 7.4 GM/DL (13.0-17.0) (13.0-17.0) Hematocrit 21.7 % 21.4 % (39.0-51.0) (39.0-51.0) Mean Corpuscular Volume 85.3 FL (80.0-100.0) Mean Corpuscular Hemoglobin 29.3 PG (27.0-34.0) Mean Corpuscular Hemoglobin 34.4 % Concent (32.0-36.0) Red Cell Distribution Width 16.4 % (11.6-17.2) Platelet Count 98 TH/MM3 (150-450) Mean Platelet Volume 8.1 FL (7.0-11.0) Neutrophils (%) (Auto) 74.2 % (16.0-70.0) Lymphocytes (%) (Auto) 10.1 % (9.0-44.0) Monocytes (%) (Auto) 9.0 % (0.0-8.0) Eosinophils (%) (Auto) 6.1 % (0.0-4.0) Basophils (%) (Auto) 0.6 % (0.0-2.0) Neutrophils # (Auto) 5.6 TH/MM3 (1.8-7.7) Lymphocytes # (Auto) 0.8 TH/MM3 (1.0-4.8) Monocytes # (Auto) 0.7 TH/MM3 (0-0.9) Eosinophils # (Auto) 0.5 TH/MM3 (0-0.4) Basophils # (Auto) 0.0 TH/MM3 (0-0.2) CBC Comment AUTO DIFF Differential Total Cells 100 Counted Neutrophils % (Manual) 79 % (16-70) Band Neutrophils % 1 % (0-6) Lymphocytes % 7 % (9-44) Monocytes % 6 % (0-8) Eosinophils % 4 % (0-4) Neutrophils # (Manual) 6.2 TH/MM3 (1.8-7.7) Metamyelocytes 1 % (0-1) Myelocytes 2 % (0-0) Differential Comment FINAL DIFF MANUAL Platelet Estimate LOW (NORMAL) Platelet Morphology Comment NORMAL (NORMAL) Polychromasia 2.0 % (0.0-1.9) Sodium Level 147 MEQ/L (136-145) Potassium Level 3.4 MEQ/L (3.5-5.1) Chloride Level 116 MEQ/L (98-107) Carbon Dioxide Level 22.2 MEQ/L (21.0-32.0) Anion Gap 9 MEQ/L (5-15) Blood Urea Nitrogen 24 MG/DL (7-18) Creatinine 1.62 MG/DL (0.60-1.30) Estimat Glomerular Filtration 42 ML/MIN (>89) Rate Random Glucose 103 MG/DL (74-106) Calcium Level 7.4 MG/DL (8.5-10.1) Protein Corrected Calcium 9.1 MG/DL (8.5-10.1) Total Protein 4.2 GM/DL (6.4-8.2) Crossmatch Leukocyte-Reduced Red Blood Cells Blood Bank Comment Prothrombin Time 12.7 SEC (9.8-11.6) Prothromb Time International 1.1 RATIO Ratio Test 09/01/16 09/01/16 09/01/16 09/01/16 16:49 17:10 17:20 17:21 Blood Type A POSITIVE Crossmatch Leukocyte-Reduced Leukocyte-Reduced Red Blood Red Blood Cells Cells Blood Bank Comment Blood Gas Puncture Site IV Blood Gas Patient Temperature 98.6 Venous Blood pH 7.27 (7.360-7.400) Venous Blood Partial Pressure 39 mmHg (44-48) CO2 Venous Blood Partial Pressure 43 mmHg (35-40) O2 Venous Blood HCO3 18 mmol/L (22-26) Venous Blood Oxygen Saturation 76 % (70-76) Venous Blood Oxygen Content 9.8 Vol % (9.0-17.0) Venous Blood Base Excess -8.1 mmol/L (-2-2) Oxygen Delivery Device VENTILATOR Blood Gas Ventilator Setting PRVC 18/550/5+/1.0IT Blood Gas Inspired Oxygen 100 % Test 09/01/16 09/01/16 09/01/16 09/01/16 17:51 18:30 18:37 22:58 Blood Type A POSITIVE Crossmatch Leukocyte-Reduced Red Blood Cells Blood Bank Comment Blood Gas Puncture Site UNKNOWN RT FEMORAL Blood Gas Patient Temperature 98.6 98.6 Blood Gas HCO3 20 mmol/L 17 mmol/L (22-26) (22-26) Blood Gas Base Excess -3.2 mmol/L -6.2 mmol/L (-2-2) (-2-2) Blood Gas Oxygen Saturation 97 % (90-100) 98 % (90-100) Arterial Blood pH 7.47 7.45 (7.380-7.420) (7.380-7.420) Arterial Blood Partial 28 mmHg (38-42) 25 mmHg (38-42) Pressure CO2 Arterial Blood Partial 375 mmHg 392 mmHg Pressure O2 (61-120) (61-120) Arterial Blood Oxygen Content 11.4 Vol % 13.4 Vol % (12.0-20.0) (12.0-20.0) Arterial Blood 2.2 % (0-4) 1.5 % (0-4) Carboxyhemoglobin Arterial Blood Methemoglobin 1.2 % (0-2) 0.7 % (0-2) Blood Gas Hemoglobin 7.7 G/DL 9.0 G/DL (12.0-16.0) (12.0-16.0) White Blood Count 5.6 TH/MM3 (4.0-11.0) Red Blood Count 2.46 MIL/MM3 (4.50-5.90) Hemoglobin 7.5 GM/DL (13.0-17.0) Hematocrit 21.3 % (39.0-51.0) Mean Corpuscular Volume 86.4 FL (80.0-100.0) Mean Corpuscular Hemoglobin 30.3 PG (27.0-34.0) Mean Corpuscular Hemoglobin 35.1 % Concent (32.0-36.0) Red Cell Distribution Width 14.8 % (11.6-17.2) Platelet Count 42 TH/MM3 (150-450) Mean Platelet Volume 8.7 FL (7.0-11.0) Neutrophils (%) (Auto) 78.5 % (16.0-70.0) Lymphocytes (%) (Auto) 10.4 % (9.0-44.0) Monocytes (%) (Auto) 7.8 % (0.0-8.0) Eosinophils (%) (Auto) 2.9 % (0.0-4.0) Basophils (%) (Auto) 0.4 % (0.0-2.0) Neutrophils # (Auto) 4.4 TH/MM3 (1.8-7.7) Lymphocytes # (Auto) 0.6 TH/MM3 (1.0-4.8) Monocytes # (Auto) 0.4 TH/MM3 (0-0.9) Eosinophils # (Auto) 0.2 TH/MM3 (0-0.4) Basophils # (Auto) 0.0 TH/MM3 (0-0.2) CBC Comment AUTO DIFF Differential Total Cells 100 Counted Neutrophils % (Manual) 82 % (16-70) Band Neutrophils % 11 % (0-6) Lymphocytes % 2 % (9-44) Monocytes % 1 % (0-8) Eosinophils % 1 % (0-4) Neutrophils # (Manual) 5.4 TH/MM3 (1.8-7.7) Metamyelocytes 3 % (0-1) Differential Comment FINAL DIFF MANUAL Toxic Granulation 1+ (NORMAL) Platelet Estimate LOW (NORMAL) Platelet Morphology Comment NORMAL (NORMAL) Prothrombin Time 17.3 SEC (9.8-11.6) Prothromb Time International 1.5 RATIO Ratio Sodium Level 149 MEQ/L (136-145) Potassium Level 3.8 MEQ/L (3.5-5.1) Chloride Level 116 MEQ/L (98-107) Carbon Dioxide Level 21.0 MEQ/L (21.0-32.0) Anion Gap 12 MEQ/L (5-15) Blood Urea Nitrogen 21 MG/DL (7-18) Creatinine 1.18 MG/DL (0.60-1.30) Estimat Glomerular Filtration 60 ML/MIN (>89) Rate Random Glucose 134 MG/DL (74-106) Calcium Level 6.0 MG/DL (8.5-10.1) Protein Corrected Calcium 8.9 MG/DL (8.5-10.1) Total Protein 2.0 GM/DL (6.4-8.2) Oxygen Delivery Device VENTILATOR Blood Gas Ventilator Setting [facility]/AC Blood Gas Inspired Oxygen 100 % Test 09/02/16 09/02/16 09/02/16 09/02/16 00:00 02:45 09:23 11:17 Urine Osmolality 405 MOSM/KG (300-1300) Urine Random Creatinine 72.2 MG/DL Urine Random Sodium 53 MEQ/L White Blood Count 8.4 TH/MM3 (4.0-11.0) Red Blood Count 2.83 MIL/MM3 (4.50-5.90) Hemoglobin 8.7 GM/DL (13.0-17.0) Hematocrit 25.0 % (39.0-51.0) Mean Corpuscular Volume 88.3 FL (80.0-100.0) Mean Corpuscular Hemoglobin 30.9 PG (27.0-34.0) Mean Corpuscular Hemoglobin 35.0 % Concent (32.0-36.0) Red Cell Distribution Width 13.4 % (11.6-17.2) Platelet Count 26 TH/MM3 (150-450) Mean Platelet Volume 8.0 FL (7.0-11.0) Neutrophils (%) (Auto) 87.7 % (16.0-70.0) Lymphocytes (%) (Auto) 4.6 % (9.0-44.0) Monocytes (%) (Auto) 7.2 % (0.0-8.0) Eosinophils (%) (Auto) 0.3 % (0.0-4.0) Basophils (%) (Auto) 0.2 % (0.0-2.0) Neutrophils # (Auto) 7.3 TH/MM3 (1.8-7.7) Lymphocytes # (Auto) 0.4 TH/MM3 (1.0-4.8) Monocytes # (Auto) 0.6 TH/MM3 (0-0.9) Eosinophils # (Auto) 0.0 TH/MM3 (0-0.4) Basophils # (Auto) 0.0 TH/MM3 (0-0.2) CBC Comment AUTO DIFF Differential Total Cells 100 Counted Neutrophils % (Manual) 58 % (16-70) Band Neutrophils % 35 % (0-6) Lymphocytes % 3 % (9-44) Monocytes % 2 % (0-8) Neutrophils # (Manual) 8.0 TH/MM3 (1.8-7.7) Metamyelocytes 2 % (0-1) Differential Comment FINAL DIFF MANUAL Platelet Estimate LOW (NORMAL) Platelet Morphology Comment NORMAL (NORMAL) Sodium Level 144 MEQ/L (136-145) Potassium Level 3.6 MEQ/L (3.5-5.1) Chloride Level 113 MEQ/L (98-107) Carbon Dioxide Level 19.2 MEQ/L (21.0-32.0) Anion Gap 12 MEQ/L (5-15) Blood Urea Nitrogen 22 MG/DL (7-18) Creatinine 1.58 MG/DL (0.60-1.30) Estimat Glomerular Filtration 43 ML/MIN (>89) Rate Random Glucose 352 MG/DL (74-106) Calcium Level 6.2 MG/DL (8.5-10.1) Protein Corrected Calcium 9.1 MG/DL (8.5-10.1) Total Protein 2.1 GM/DL (6.4-8.2) Blood Gas Puncture Site CENTRAL LINE ART LINE Blood Gas Patient Temperature 98.6 98.6 Venous Blood pH 7.32 (7.360-7.400) Venous Blood Partial Pressure 36 mmHg (44-48) CO2 Venous Blood Partial Pressure 56 mmHg (35-40) O2 Venous Blood HCO3 18 mmol/L (22-26) Venous Blood Oxygen Saturation 85 % (70-76) Venous Blood Oxygen Content 12.2 Vol % (9.0-17.0) Venous Blood Base Excess -7.1 mmol/L (-2-2) Oxygen Delivery Device VENTILATOR VENTILATOR Blood Gas Ventilator Setting PRVC/AC Blood Gas Inspired Oxygen 80 % 70 % Blood Gas HCO3 17 mmol/L (22-26) Blood Gas Base Excess -7.3 mmol/L (-2-2) Blood Gas Oxygen Saturation 98 % (90-100) Arterial Blood pH 7.39 (7.380-7.420) Arterial Blood Partial 28 mmHg (38-42) Pressure CO2 Arterial Blood Partial 316 mmHg Pressure O2 (61-120) Arterial Blood Oxygen Content 14.5 Vol % (12.0-20.0) Arterial Blood 1.2 % (0-4) Carboxyhemoglobin Arterial Blood Methemoglobin 1.2 % (0-2) Blood Gas Hemoglobin 10.0 G/DL (12.0-16.0) Test 09/02/16 09/02/16 09/02/16 09/03/16 12:00 12:57 13:55 04:03 White Blood Count 8.7 TH/MM3 8.7 TH/MM3 (4.0-11.0) (4.0-11.0) Red Blood Count 3.40 MIL/MM3 2.75 MIL/MM3 (4.50-5.90) (4.50-5.90) Hemoglobin 10.4 GM/DL 8.5 GM/DL (13.0-17.0) (13.0-17.0) Hematocrit 29.3 % 23.6 % (39.0-51.0) (39.0-51.0) Mean Corpuscular Volume 86.0 FL 85.8 FL (80.0-100.0) (80.0-100.0) Mean Corpuscular Hemoglobin 30.4 PG 30.9 PG (27.0-34.0) (27.0-34.0) Mean Corpuscular Hemoglobin 35.4 % 36.0 % Concent (32.0-36.0) (32.0-36.0) Red Cell Distribution Width 16.1 % 16.1 % (11.6-17.2) (11.6-17.2) Platelet Count 32 TH/MM3 34 TH/MM3 (150-450) (150-450) Mean Platelet Volume 9.7 FL 9.1 FL (7.0-11.0) (7.0-11.0) Neutrophils (%) (Auto) 80.0 % 78.9 % (16.0-70.0) (16.0-70.0) Lymphocytes (%) (Auto) 9.9 % 9.3 % (9.0-44.0) (9.0-44.0) Monocytes (%) (Auto) 8.4 % (0.0-8.0) 8.1 % (0.0-8.0) Eosinophils (%) (Auto) 1.2 % (0.0-4.0) 3.3 % (0.0-4.0) Basophils (%) (Auto) 0.5 % (0.0-2.0) 0.4 % (0.0-2.0) Neutrophils # (Auto) 6.9 TH/MM3 6.9 TH/MM3 (1.8-7.7) (1.8-7.7) Lymphocytes # (Auto) 0.9 TH/MM3 0.8 TH/MM3 (1.0-4.8) (1.0-4.8) Monocytes # (Auto) 0.7 TH/MM3 0.7 TH/MM3 (0-0.9) (0-0.9) Eosinophils # (Auto) 0.1 TH/MM3 0.3 TH/MM3 (0-0.4) (0-0.4) Basophils # (Auto) 0.0 TH/MM3 0.0 TH/MM3 (0-0.2) (0-0.2) CBC Comment AUTO DIFF AUTO DIFF Differential Total Cells 100 100 Counted Neutrophils % (Manual) 55 % (16-70) 64 % (16-70) Band Neutrophils % 35 % (0-6) 24 % (0-6) Lymphocytes % 7 % (9-44) 8 % (9-44) Monocytes % 2 % (0-8) Eosinophils % 1 % (0-4) 4 % (0-4) Neutrophils # (Manual) 7.8 TH/MM3 7.7 TH/MM3 (1.8-7.7) (1.8-7.7) Nucleated Red Blood Cells 1 /100 WBC (0-0) Differential Comment FINAL DIFF FINAL DIFF MANUAL MANUAL Toxic Granulation 1+ (NORMAL) Platelet Estimate LOW (NORMAL) LOW (NORMAL) Platelet Morphology Comment NORMAL NORMAL (NORMAL) (NORMAL) Tear Drop Cells (NORMAL) Red Cell Morphology Comment NORMAL NORMAL (NORMAL) (NORMAL) Prothrombin Time 15.5 SEC (9.8-11.6) Prothromb Time International 1.4 RATIO Ratio Activated Partial 40.8 SEC Thromboplast Time (24.3-30.1) Fibrinogen 73 mg/dL (181-393) Sodium Level 139 MEQ/L 133 MEQ/L (136-145) (136-145) Potassium Level 3.5 MEQ/L 3.4 MEQ/L (3.5-5.1) (3.5-5.1) Chloride Level 109 MEQ/L 102 MEQ/L (98-107) (98-107) Carbon Dioxide Level 18.3 MEQ/L 19.9 MEQ/L (21.0-32.0) (21.0-32.0) Anion Gap 12 MEQ/L (5-15) 11 MEQ/L (5-15) Blood Urea Nitrogen 20 MG/DL (7-18) 16 MG/DL (7-18) Creatinine 1.45 MG/DL 1.34 MG/DL (0.60-1.30) (0.60-1.30) Estimat Glomerular Filtration 48 ML/MIN (>89) 52 ML/MIN (>89) Rate Random Glucose 274 MG/DL 262 MG/DL (74-106) (74-106) Calcium Level 7.0 MG/DL 6.1 MG/DL (8.5-10.1) (8.5-10.1) Protein Corrected Calcium 9.3 MG/DL 8.1 MG/DL (8.5-10.1) (8.5-10.1) Total Protein 3.2 GM/DL 3.3 GM/DL (6.4-8.2) (6.4-8.2) Blood Bank Comment Urine Eosinophils NONE SEEN /HPF (NONE SEEN) Result Diagram: 09/03/16 0403 09/03/16 0403 Imaging Last Impressions Chest X-Ray 09/02/16 0000 Signed Impressions: Service Date/Time: August 06:18 - CONCLUSION: Increasing bibasilar infiltrates, right greater than left. 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 There is reconstitution distally. CT angiography of the abdominal aorta and lower extremities is recommended for further evaluation if clinically indicated. Vasu Montanez MD Foot X-Ray 08/29/16 0000 Signed Impressions: Service Date/Time: Monday, August 29, 2016 15:17 - CONCLUSION: No acute abnormality is seen. There is chronic change as described above. Uziel Cooper MD Ankle X-Ray 08/29/16 0000 Signed Impressions: Service Date/Time: Monday, August 29, 2016 15:04 - CONCLUSION: 1. Soft-tissue swelling at the ankle without a fracture seen. 2. 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 Uziel Cooper MD Abdominal Angiography 08/28/16 0000 Signed Impressions: Service Date/Time: Sunday, August 28, 2016 17:58 - CONCLUSION: 1. 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 2. The bypass of course excludes access to the origin of the ZACHARY. 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 3. No active hemorrhage identified in the celiac or SMA. Ephraim Garcia MD GI Bleed Scan Nuclear Medicine 08/24/16 0000 Signed Impressions: Service Date/Time: Wednesday, August 24, 2016 14:53 - CONCLUSION: A GI bleed is not seen. Uziel Cooper MD Patient/Family Conference Family Conference Location: Bedside Issues Discussed: * Palliative care role, purpose, approach * Additional medical, psychosocial, and spiritual history * Patients general health, functional status, and cognitive changes in the months leading up to the current hospitalization * Patient/family understanding of the current medical problems * Patient/family understanding of prognosis * Patients goals of care as best understood from advance directives and/or conversations and/or values * Current medical treatment options and benefits/burdens of those options * Likely scenarios comparing ongoing aggressive care with a transition to comfort measures only * Questions answered to the best of my ability * Palliative care contact information provided Assessment and Plan Disease Oriented Problem List: (1) Lower GI bleeding Comment: s/p colectomy (2) Anemia (3) Acute kidney injury (4) Hypovolemic shock (5) CHF (congestive heart failure) (6) Respiratory failure (7) Ischemic leg Symptom Scale: (1) Dyspnea 0-10 Scale: Unable to quantify (2) Encephalopathy 0-10 Scale: Unable to quantify (3) Pain 0-10 Scale: Unable to quantify Comment: ischemic leg, but generalized pain. s/p surgery etc... Pertinent Non-Medical Issues Psychosocial: Spiritual: Legal: Ethical issues impacting care: Important Contacts Sobeidalauren Kovacs [phone] Prognosis 75 year old with cardiac disease, came in with GI bleed. Course of hospitalization complicated by hypovolemic shock, anemia (inability to find source of bleed with taged red blood cell, and colonoscopy) respiratory failure , continue GI bleed, and ischemic left leg in which pt faced dilemma of not being able to anticoagulate due to GI bleed. Extubated on 08/23 but reintubated 09/01. Pt is s/p colectomy 09/01, but remainshave hypovolemic shock, on large amount of pressors, and on ventilator, difficult to wean. Prognosis appears poor. Code Status: Full Code Plan == code: Full Code. == Capacity- Easily awakens, at times follow directions, at other times does not. Able to nod yes "on a clear mo day, the alexis is blue." Not able to shake head for no "If on a well watered lawn, grass is pink." At times does not seem to understand the questions. Uncomfortable grimacing. Unable to review goals of care and on my visit, I would say at pt's current state, he is unable to weigh the risk and benefits of treatment options, especially given his medical complexity. confirms he has been confused. This may fluctate , but I would say for the time being medical decisions and consent would need to go with pt's Proxy, which would be pt's . == HCP= , under [place] Statutes. I do not see any HCS designated. == goals of care: She was amenable to talk on the phone. Reviewed the course of pt's hospitalization, gi bleed, tests, ischemic left leg. Discussed my vist with patient my clinical impression today. Spoke to her and told her I have also d/w with metal grinder. Discussed the amount of pressors pt is on, the ventilator, benefits and risk of cpr/compressions and that I feel pt would mostly get trauma, and likely none of the benefits. Talked about life support and the challenges he face weaning of that, discussed peg and trach. Discussed about pt's known wishes. 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 Family appreciative of the information. at this time says, she wants to discuss with 2 people about this before making the decision, even concerning about code status. She understands if she desires to change code status, she can inform the nurse/ and or medical team. There is a schedule Family Meeting at 10am Wednesday 09/06. == pain- no new med rec right now. Uncomfortable. Deferred to metal grinder for now due to BP unstablility (4 pressors). Dyspnea- pt intubated, defer to metal grinder. == Palliative care will follow up Tuesday. Time Spent Total Floor Time (mins): 60 Face to Face Time (mins): 36 >50% Counseling/Coord of Care: No Thank you for the opportunity to participate in the care of Mr. Kovacs. Attestation To help prompt me to consider important information that might be impacting today's encounter and assessment, information from prior notes written by myself or my colleagues may have been "brought forward" into today's note. My signature on this note, however, is an attestation that I personally performed the exam, history, and/or decision-making noted today, and, unless otherwise indicated, the interactions with patient, family, and staff as well as the review of records all occurred today. I also attest that the listed assessment and stated plan reflect my best clinical judgment today based on the combination of historical information, prior notes, and today's exam/ interactions. When time spent is documented, it refers only to time spent today by the signer, or if indicated, combined time spent today by collaborating physician/nurse practitioner. Jassi Ruby MD Sep 03, 2016 10:43
--- NOTE | 2016-09-03 12:09 | HHI.CCPN ---
Subjective Remarks/Hospital Course S/P extubation after hypovolemic shock from major lower GI bleed. He has received 12 units of blood and has now started actively bleeding again for the 3rd time in 72 hours. 08/25: Bled again last night, now stable. Tagged red cell study does not show a source. 08/26: Stable hemodynamics and Hgb, No bleeding. 08/31: Patient has now received 20 units of blood in transfusion. Exhaustive search for bleeding site has not revealed a source. Now patient has markedly decreased pulses left foot. 09/01: Threatened limb loss left leg due to acute arterial insufficiency. Discussed with Dr. Carty who has observed from arteriogram that patient has interrupted inflow at the left common iliac; thrombectomy not beneficial in the context of extensive pelvic collaterals and probably harmful. Patient started bleeding profusely from rectum, BRB. Systolic blood pressure dropped from 146 to 62 and patient became clammy, cool. Pulse to 132. Levophed started at 20 mics /min. After 4 units prbcs infused, levophed to 5 mics/min and SBP 118. P 102. He will be taken immediately to the OR now for colectomy. Most likely site is left/sigmoid colon. 09/02: Hypovolemic shock last night, hypotension persists. S/P subtotal colectomy now with SBP 55. Acid-base balance acceptable, peripheral perfusion marginal. Clearly still in shock. Excellent and aggressive volume and coag replacement overnight. 09/03: We have transfused 30 units but bleeding appears to have ceased after colectomy. Objective Vital Signs Date Time Temp Pulse Resp B/P Pulse Ox O2 Delivery O2 Flow Rate FiO2 09/03/16 11:39 100 40 09/03/16 10:00 103 09/03/16 08:00 97.0 22 92/64 09/01/16 21:30 Ventilator 08/30/16 21:00 2.00 Intake and Output 09/02/16 09/02/16 09/03/16 08:00 16:00 00:00 Intake Total 6360 ml 3900 ml 6019 ml Output Total 1240 ml 1750 ml 1125 ml Balance 5120 ml 2150 ml 4894 ml Result Diagram: 09/03/1640209/03/16402 Objective Remarks GENERAL: Shock SKIN: Cool. HEAD: Normocephalic.. NECK: Supple, orally intubated. CARDIOVASCULAR: Irreg Irreg, no JVD. Rate 92 - 115 RESPIRATORY: Breath sounds equal bilaterally. Tachypnea. Mechanical ventilation. Light wheezes, GASTROINTESTINAL: Abdomen soft, non-tender, nondistended. BS active. No guarding. MUSCULOSKELETAL: Tepid, legs marginally perfused. 2+ edema left, 1+ right leg. NEURO: Opens eyes to loud voice. Withdraws arms to pain. A/P Problem List: (1) Hypovolemic shock ICD Code: R57.1 Status: Acute (2) Lower GI bleeding ICD Code: K92.2 Status: Acute (3) Anticoagulated ICD Code: Z79.01 Status: Acute (4) Acute kidney injury ICD Code: N17.9 Status: Acute (5) Anemia ICD Code: D64.9 Status: Acute Assessment and Plan GI bleed - probable left colon diverticular bleed ?? - PPI BID - GI following - colonoscopy 08/22 w/o obvious source of bleed, - serial H&H -total transfusion 30 units - s/p subtotal colectomy. Anemia of blood loss - transfuse for hemodynamic instability - transfuse to keep Hg > 8 (recent ACS) - Transfuse 4 unit now Total 30 units since GI bleed. -T&C 4 FFP, 1 platelets CAD - hold anticoagulation due to acute hemophage - supportive care - hold all antiplatelet meds Respiratory failure - intubated for an airway protection - extubated 08/23 -Reintubated 09/01 for shock Hypotension - blood loss - volume replacement - cardiogenic component? - Levophed, vasopressin, dobutamine REJI - volume loss - i.v. fluids resuscitation - monitor electrolytes and renal functions Atrial Fibrillation - rate controlled - resume home meds when hemodynamically stable, no anticoagulation - rate well controlled Diabetes - SSI for euglycemia - hold p.o. meds GERD - PPI DVT/GI prophylaxis - SCDs/PPI BID Acute arterial insufficiency left leg -Threatened limb loss. Remains marginal. Overall impression: Hypovolemic shock for 3rd time in recent days -> to OR for subtotal colectomy. Remains critically ill and unstable requiring excessive vasopressor support and unable to wean ventilator. Critical Care 38 mins Problem Qualifiers (1) Anemia: Qualified Code: D62 - Acute posthemorrhagic anemia Lamont Spear MD Sep 03, 2016 12:09
[2016-09-03 14:01] LABS: HEMATOCRIT 23.1 % (39.0-51.0)
[2016-09-03 14:02] LABS: REVIEW FLAG FINAL
[2016-09-03 15:27] LABS: BLOOD GAS BASE EXCESS -4.5 mmol/L (-2-2); BLOOD GAS CARBOXYHEMOGLOBIN 1.6 % (0-4); BLOOD GAS HCO3 19 mmol/L (22-26); BLOOD GAS METHEMOGLOBIN 0.8 % (0-2); BLOOD GAS O2 HGB SATURATION 97 % (90-100); BLOOD GAS OXYGEN CONTENT 11.2 Vol % (12.0-20.0); BLOOD GAS PCO2 29 mmHg (38-42); BLOOD GAS PO2 134 mmHg (61-120); CRITICAL VALUE NO; OXYGEN DEVICE VENTILATOR; TEMP CORR TO 98.6
[2016-09-03 15:28] LABS: DRAW SITE ART LINE; FIO2 40 %; NUMBER OF ARTERIAL PUNCTURES 0; STAT NO; ULNAR PULSE PRESENT; VENT SETTINGS PRVC/AC
--- NOTE | 2016-09-03 17:34 | HHI.PR ---
Subjective Subjective Notes Intubated Objective Vitals/I&O Vital Signs Date Time Temp Pulse Resp B/P Pulse Ox O2 Delivery O2 Flow Rate FiO2 09/03/16 17:08 100 40 09/03/16 16:35 22 09/03/16 16:00 97.5 102 94/64 09/01/16 21:30 Ventilator 08/30/16 21:00 2.00 Labs Laboratory Tests Test 09/03/16 09/03/16 09/03/16 09/03/16 04:03 13:25 13:40 15:15 White Blood Count 8.7 Red Blood Count 2.75 Hemoglobin 8.5 8.3 Hematocrit 23.6 23.1 Mean Corpuscular Volume 85.8 Mean Corpuscular Hemoglobin 30.9 Mean Corpuscular Hemoglobin 36.0 Concent Red Cell Distribution Width 16.1 Platelet Count 34 Mean Platelet Volume 9.1 Neutrophils (%) (Auto) 78.9 Lymphocytes (%) (Auto) 9.3 Monocytes (%) (Auto) 8.1 Eosinophils (%) (Auto) 3.3 Basophils (%) (Auto) 0.4 Neutrophils # (Auto) 6.9 Lymphocytes # (Auto) 0.8 Monocytes # (Auto) 0.7 Eosinophils # (Auto) 0.3 Basophils # (Auto) 0.0 CBC Comment AUTO DIFF Differential Total Cells 100 Counted Neutrophils % (Manual) 64 Band Neutrophils % 24 Lymphocytes % 8 Eosinophils % 4 Neutrophils # (Manual) 7.7 Differential Comment FINAL DIFF MANUAL Platelet Estimate LOW Platelet Morphology Comment NORMAL Red Cell Morphology Comment NORMAL Sodium Level 133 Potassium Level 3.4 3.7 Chloride Level 102 Carbon Dioxide Level 19.9 Anion Gap 11 Blood Urea Nitrogen 16 Creatinine 1.34 Estimat Glomerular Filtration 52 Rate Random Glucose 262 Calcium Level 6.1 Protein Corrected Calcium 8.1 Total Protein 3.3 Blood Gas Puncture Site ART LINE Blood Gas Patient Temperature 98.6 Blood Gas HCO3 19 Blood Gas Base Excess -4.5 Blood Gas Oxygen Saturation 97 Arterial Blood pH 7.43 Arterial Blood Partial 29 Pressure CO2 Arterial Blood Partial 134 Pressure O2 Arterial Blood Oxygen Content 11.2 Arterial Blood 1.6 Carboxyhemoglobin Arterial Blood Methemoglobin 0.8 Blood Gas Hemoglobin 8.0 Oxygen Delivery Device VENTILATOR Blood Gas Ventilator Setting PRVC/AC Blood Gas Inspired Oxygen 40 Cardiovascular: Regular Lungs: Clear Abdomen: Other (midline incision; colostomy with pink stoma; no stool; MANOLO with large amount of SS drainage ) Extremities: Other (generalized edema ) A/P Assessment and Plan 75 year old male with LGIB -POD2 Ex Lap and subtotal colectomy -Continues to require high pressor support -Continue MANOLO to LIWS -NPO -Appreciate Palliative Care consult ---Family meeting scheduled for Tuesday Attending Statement The exam, history, and the medical decision-making described in the above note were completed with the assistance of the mid-level provider. I reviewed and agree with the findings presented. I attest that I had a [id number] encounter with the patient on the same day, and personally performed and documented my assessment and findings in the medical record. Abdominal exam postoperative, MANOLO with large serous fluid Haley Calloway Sep 03, 2016 17:34 oClt Smiley MD Oct 03, 2016 00:24
--- NOTE | 2016-09-03 17:38 | HHI.GIFU ---
Subjective Remarks Resting in bed. Abdominal tenderness. Minimal serosanguineous fluid in colostomy. Palliative care has been consulted. (Winsome Logan) Objective Vitals I&O Vital Signs Date Time Temp Pulse Resp B/P Pulse Ox O2 Delivery O2 Flow Rate FiO2 09/03/16 17:08 100 40 09/03/16 16:35 22 09/03/16 16:00 40 09/03/16 16:00 97.5 102 24 94/64 99 09/03/16 16:00 103 09/03/16 14:00 98 09/03/16 12:00 40 09/03/16 12:00 100 09/03/16 12:00 97.2 100 22 99/70 99 09/03/16 11:39 100 40 09/03/16 10:00 103 09/03/16 08:34 99 40 09/03/16 08:00 105 09/03/16 08:00 40 09/03/16 08:00 97.0 102 22 92/64 99 09/03/16 06:00 102 09/03/16 04:09 100 40 09/03/16 04:00 40 09/03/16 04:00 103 09/03/16 04:00 98.4 104 22 84/57 100 09/03/16 02:00 103 09/03/16 00:13 100 40 09/03/16 00:00 100 09/03/16 00:00 98.1 107 22 117/71 100 09/03/16 00:00 40 09/02/16 22:00 102 09/02/16 20:00 107 09/02/16 20:00 40 09/02/16 20:00 97.6 108 22 108/74 99 09/02/16 19:40 99 40 09/02/16 18:00 95 I/O 09/02/16 09/02/16 09/02/16 09/03/16 09/03/16 09/03/16 07:00 15:00 23:00 07:00 15:00 23:00 Intake Total 6360 ml 3900 ml 6019 ml 4046 ml 4055 ml Output Total 1240 ml 1750 ml 1125 ml 1100 ml 1925 ml Balance 5120 ml 2150 ml 4894 ml 2946 ml 2130 ml IV Total 5860 ml 3671 ml 6019 ml 4046 ml 4055 ml Albumin 500 ml Cryoprecipitate 229 ml Output Urine Total 150 ml 250 ml 300 ml 500 ml 625 ml Drainage Total 1090 ml 1500 ml 825 ml 600 ml 1300 ml # Bowel Movements 0 Laboratory Laboratory Tests Test 09/03/16 09/03/16 09/03/16 09/03/16 04:03 13:25 13:40 15:15 White Blood Count 8.7 Red Blood Count 2.75 Hemoglobin 8.5 8.3 Hematocrit 23.6 23.1 Mean Corpuscular Volume 85.8 Mean Corpuscular Hemoglobin 30.9 Mean Corpuscular Hemoglobin 36.0 Concent Red Cell Distribution Width 16.1 Platelet Count 34 Mean Platelet Volume 9.1 Neutrophils (%) (Auto) 78.9 Lymphocytes (%) (Auto) 9.3 Monocytes (%) (Auto) 8.1 Eosinophils (%) (Auto) 3.3 Basophils (%) (Auto) 0.4 Neutrophils # (Auto) 6.9 Lymphocytes # (Auto) 0.8 Monocytes # (Auto) 0.7 Eosinophils # (Auto) 0.3 Basophils # (Auto) 0.0 CBC Comment AUTO DIFF Differential Total Cells 100 Counted Neutrophils % (Manual) 64 Band Neutrophils % 24 Lymphocytes % 8 Eosinophils % 4 Neutrophils # (Manual) 7.7 Differential Comment FINAL DIFF MANUAL Platelet Estimate LOW Platelet Morphology Comment NORMAL Red Cell Morphology Comment NORMAL Sodium Level 133 Potassium Level 3.4 3.7 Chloride Level 102 Carbon Dioxide Level 19.9 Anion Gap 11 Blood Urea Nitrogen 16 Creatinine 1.34 Estimat Glomerular Filtration 52 Rate Random Glucose 262 Calcium Level 6.1 Protein Corrected Calcium 8.1 Total Protein 3.3 Blood Gas Puncture Site ART LINE Blood Gas Patient Temperature 98.6 Blood Gas HCO3 19 Blood Gas Base Excess -4.5 Blood Gas Oxygen Saturation 97 Arterial Blood pH 7.43 Arterial Blood Partial 29 Pressure CO2 Arterial Blood Partial 134 Pressure O2 Arterial Blood Oxygen Content 11.2 Arterial Blood 1.6 Carboxyhemoglobin Arterial Blood Methemoglobin 0.8 Blood Gas Hemoglobin 8.0 Oxygen Delivery Device VENTILATOR Blood Gas Ventilator Setting PRVC/AC Blood Gas Inspired Oxygen 40 Imaging Last Impressions Chest X-Ray 09/02/16 0000 Signed Impressions: Service Date/Time: August 06:18 - CONCLUSION: Increasing bibasilar infiltrates, right greater than left. 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 There is reconstitution distally. CT angiography of the abdominal aorta and lower extremities is recommended for further evaluation if clinically indicated. Vasu Montanez MD Foot X-Ray 08/29/16 0000 Signed Impressions: Service Date/Time: Monday, August 29, 2016 15:17 - CONCLUSION: No acute abnormality is seen. There is chronic change as described above. Uziel Cooper MD Ankle X-Ray 08/29/16 0000 Signed Impressions: Service Date/Time: Monday, August 29, 2016 15:04 - CONCLUSION: 1. Soft-tissue swelling at the ankle without a fracture seen. 2. 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 Uziel Cooper MD Abdominal Angiography 08/28/16 0000 Signed Impressions: Service Date/Time: Sunday, August 28, 2016 17:58 - CONCLUSION: 1. 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 2. The bypass of course excludes access to the origin of the ZACHARY. 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 3. No active hemorrhage identified in the celiac or SMA. Ephraim Garcia MD GI Bleed Scan Nuclear Medicine 08/24/16 0000 Signed Impressions: Service Date/Time: Wednesday, August 24, 2016 14:53 - CONCLUSION: A GI bleed is not seen. Uziel Cooper MD Physical Exam HEENT: Normocephalic; atraumatic. CHEST: CTA CARDIAC: RRR ABDOMEN: Soft, nondistended, nontender; no hepatosplenomegaly; bowel sounds are present in all four quadrants. EXTREMITIES: BLE edema, worse in LLE, unable to palpate pulse in left foot. 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 S/P incomplete colonoscopy due to suboptimal prep on ( 08/22/16) -----> diverticulosis, no signs of active bleeding, S/P EGD/Colonoscopy (09/01/16)----> Based on egd/colonoscopy findings suspect diverticular bleeding-left colon. Pt developed significant rectal bleeding on 09/01 and underwent emergent exploratory lap with subtotal colectomy by GS. Minimal serosanguineous drainage in colostomy, midline drsg d/i. S/P 32 units of PRBC. HH 8.3/23.1. - Anemia. S/P 32 units of PRBC. HH 8.3/23.1. - Acute arterial insufficiency with threatened limb loss left leg due. S/P arteriogram that patient has interrupted inflow at the left common iliac; thrombectomy not beneficial in the context of extensive pelvic collaterals and probably harmful. S/P CVT evaluation. - REJI with electrolyte abnormalities. Creat 1.34. - CAD, CABG, A-fib, on Xarelto per attending Plan: - Diet per GS - Cont. Protonix - Cont. to monitor hh - Transfuse as needed - GI will sign off, please reconsult as needed - Patient seen and examined by Dr. Monroy and myself and this note is written on her behalf. (Winsome Logan) Physician Comments seen, examined agree with above (Vero Monroy MD) Winsome Logan Sep 03, 2016 17:38 Vero Monroy MD Sep 03, 2016 18:32
[2016-09-03] MEDS: NOREPINEPHRINE INJ 4 MG in SODIUM CHLOR 0.9% 250 ML INJ 246 ML IV SCH ×3 (18:10→22:42)
[2016-09-03] MEDS: SODIUM CHLOR 0.9% 1000 ML INJ 1,000 ML IV SCH (18:19)
[2016-09-03] MEDS ORDERED: NOREPINEPHRINE 4 MG/4 ML AMP ONE (22:28)
[2016-09-04] VITALS (14 sets, daily range): BP systolic 79–104; BP diastolic 56–72; PULSE 85–122; RESP 22–24; TEMP 97.5–98.6; O2SAT 96–100
[2016-09-04] MEDS: MIDAZOLAM HCL 2 MG/2 ML VIAL IV PUSH PRN ×2 (00:56→11:58)
[2016-09-04] MEDS: MORPHINE SULFATE 4 MG/ML INJ IV PRN ×3 (00:57→11:45)
[2016-09-04] MEDS: NOREPINEPHRINE INJ 4 MG in SODIUM CHLOR 0.9% 250 ML INJ 246 ML IV SCH ×13 (03:00→23:57)
[2016-09-04] MEDS: CHLORHEXIDINE GLUCONATE 2 % 1 PACK (2 CLOTHS) TOP SCH (03:01)
[2016-09-04] MEDS: metroNIDAZOLE 500 MG INJ 100 ML IV SCH ×3 (03:01→19:48)
[2016-09-04] MEDS: PHENYLEPHRINE HCL 160 MG/D5W 484 ML ADMIX IV SCH ×8 (03:01→19:14)
[2016-09-04 04:08] LABS: BLOOD GAS BASE EXCESS -3.7 mmol/L (-2-2); BLOOD GAS CARBOXYHEMOGLOBIN 1.5 % (0-4); BLOOD GAS HCO3 20 mmol/L (22-26); BLOOD GAS METHEMOGLOBIN 0.8 % (0-2); BLOOD GAS O2 HGB SATURATION 97 % (90-100); BLOOD GAS OXYGEN CONTENT 11.5 Vol % (12.0-20.0); BLOOD GAS PCO2 33 mmHg (38-42); BLOOD GAS PO2 128 mmHg (61-120); BLOOD GAS TOTAL HGB 8.2 G/DL (12.0-16.0); CRITICAL VALUE NO; OXYGEN DEVICE VENTILATOR; TEMP CORR TO 98.6
[2016-09-04 04:09] LABS: DRAW SITE ART LINE; FIO2 40 %; STAT NO; VENT SETTINGS PRVC/AC
[2016-09-04 04:34] LABS: REVIEW FLAG FINAL
[2016-09-04 04:55] LABS: BICARBONATE 21.8 MEQ/L (21.0-32.0); POTASSIUM 3.6 MEQ/L (3.5-5.1); TOTAL BILIRUBIN ADULT 1.6 MG/DL (0.2-1.0)
[2016-09-04] MEDS: DOBUTamine INJ 500 MG in DEXTROSE 5% IN WATER INJ 210 ML IV SCH ×10 (05:05→23:58)
[2016-09-04] MEDS: SODIUM BICARBONATE 8.4% INJ 150 MEQ in WATER STERILE FOR INJ 850 ML IV SCH (05:06)
[2016-09-04] MEDS: VASOPRESSIN INJ 40 UNITS in DEXTROSE 5% IN WATER 100ML INJ 98 ML IV SCH ×4 (05:06→16:57)
[2016-09-04] MEDS: PANTOPRAZOLE SODIUM 40 MG VIAL IV SCH ×2 (05:07→17:38)
[2016-09-04] MEDS: METOCLOPRAMIDE HCL 10 MG/2 ML VIAL IV PUSH SCH ×3 (05:07→19:49)
[2016-09-04] MEDS ORDERED: NOREPINEPHRINE 4 MG/4 ML AMP ONE (08:08)
[2016-09-04] MEDS: SODIUM CHLORIDE 0.9% FLUSH 5 ML FLUSH IV FLUSH SCH ×2 (08:25→19:49)
--- NOTE | 2016-09-04 09:50 | HHI.CCPN ---
Subjective Remarks/Hospital Course S/P extubation after hypovolemic shock from major lower GI bleed. He has received 12 units of blood and has now started actively bleeding again for the 3rd time in 72 hours. 08/25: Bled again last night, now stable. Tagged red cell study does not show a source. 08/26: Stable hemodynamics and Hgb, No bleeding. 08/31: Patient has now received 20 units of blood in transfusion. Exhaustive search for bleeding site has not revealed a source. Now patient has markedly decreased pulses left foot. 09/01: Threatened limb loss left leg due to acute arterial insufficiency. Discussed with Dr. Carty who has observed from arteriogram that patient has interrupted inflow at the left common iliac; thrombectomy not beneficial in the context of extensive pelvic collaterals and probably harmful. Patient started bleeding profusely from rectum, BRB. Systolic blood pressure dropped from 146 to 62 and patient became clammy, cool. Pulse to 132. Levophed started at 20 mics /min. After 4 units prbcs infused, levophed to 5 mics/min and SBP 118. P 102. He will be taken immediately to the OR now for colectomy. Most likely site is left/sigmoid colon. 09/02: Hypovolemic shock last night, hypotension persists. S/P subtotal colectomy now with SBP 55. Acid-base balance acceptable, peripheral perfusion marginal. Clearly still in shock. Excellent and aggressive volume and coag replacement overnight. 09/03: We have transfused 30 units but bleeding appears to have ceased after colectomy. 09/04: Bleeding has stopped after left colectomy, now recovering from shock state. Objective Vital Signs Date Time Temp Pulse Resp B/P Pulse Ox O2 Delivery O2 Flow Rate FiO2 09/04/16 08:15 98 40 09/04/16 08:00 122 09/04/16 08:00 97.9 22 100/72 Automatic Cuff 09/01/16 21:30 Ventilator Intake and Output 09/03/16 09/03/16 09/04/16 08:00 16:00 00:00 Intake Total 4046 ml 4055 ml 3770 ml Output Total 1100 ml 1925 ml 1750 ml Balance 2946 ml 2130 ml 2020 ml Result Diagram: 09/04/16 0406 09/04/16 0406 Other Results Laboratory Tests Test 09/03/16 09/04/16 15:15 03:56 Blood Gas Puncture Site ART LINE ART LINE Blood Gas Patient Temperature 98.6 98.6 Blood Gas HCO3 19 mmol/L 20 mmol/L (22-26) (22-26) Blood Gas Base Excess -4.5 mmol/L -3.7 mmol/L (-2-2) (-2-2) Blood Gas Oxygen Saturation 97 % (90-100) 97 % (90-100) Arterial Blood pH 7.43 7.40 (7.380-7.420) (7.380-7.420) Arterial Blood Partial 29 mmHg (38-42) 33 mmHg (38-42) Pressure CO2 Arterial Blood Partial 134 mmHg 128 mmHg Pressure O2 (61-120) (61-120) Arterial Blood Oxygen Content 11.2 Vol % 11.5 Vol % (12.0-20.0) (12.0-20.0) Arterial Blood 1.6 % (0-4) 1.5 % (0-4) Carboxyhemoglobin Arterial Blood Methemoglobin 0.8 % (0-2) 0.8 % (0-2) Blood Gas Hemoglobin 8.0 G/DL 8.2 G/DL (12.0-16.0) (12.0-16.0) Oxygen Delivery Device VENTILATOR VENTILATOR Blood Gas Ventilator Setting PRVC/AC PRVC/AC Blood Gas Inspired Oxygen 40 % 40 % Objective Remarks GENERAL: Edematous SKIN: Warm HEAD: Normocephalic.. NECK: Supple, orally intubated. CARDIOVASCULAR: Irreg Irreg, no JVD. Rate 92 - 112 RESPIRATORY: Diffuse crackles. Tachypnea. Mechanical ventilation. Light wheezes, GASTROINTESTINAL: Abdomen soft, non-tender, nondistended. BS active. No guarding. MUSCULOSKELETAL: Tepid, legs marginally perfused. 3+ edema left, 1+ right leg. NEURO: Opens eyes to loud voice. Withdraws arms to pain. Tracks with eyes. A/P Problem List: (1) Hypovolemic shock ICD Code: R57.1 Status: Acute (2) Lower GI bleeding ICD Code: K92.2 Status: Acute (3) Anticoagulated ICD Code: Z79.01 Status: Acute (4) Acute kidney injury ICD Code: N17.9 Status: Acute (5) Anemia ICD Code: D64.9 Status: Acute Assessment and Plan GI bleed - left colon diverticular bleed - PPI BID - GI following - colonoscopy 08/22 w/o obvious source of bleed, - serial H&H -total transfusion 30 units - s/p subtotal colectomy. Anemia of blood loss - transfuse for hemodynamic instability - transfuse to keep Hg > 8 (recent ACS) - Transfuse 4 unit now Total 30 units since GI bleed. -T&C 4 FFP, 1 platelets 09.03 CAD - hold anticoagulation due to acute hemophage - supportive care - hold all antiplatelet meds Respiratory failure - intubated for an airway protection - extubated 08/23 -Reintubated 09/01 for shock Hypotension - blood loss - volume replacement - cardiogenic component? - Slowly tapering Levophed, vasopressin, dobutamine REJI - volume loss - i.v. fluids resuscitation - monitor electrolytes and renal functions -now overloaded Atrial Fibrillation - rate controlled - resume home meds when hemodynamically stable, no anticoagulation - rate well controlled Diabetes - SSI for euglycemia - hold p.o. meds GERD - PPI DVT/GI prophylaxis - SCDs/PPI BID Acute arterial insufficiency left leg -S/P left iliac artery bypass -Threatened limb loss. Remains marginal. Overall impression: Hypovolemic shock for 3rd time in recent days -> to OR for subtotal colectomy. Now recovering from shock sate. Remains critically ill and unstable, still requiring excessive vasopressor support and unable to wean ventilator. Critical Care 42 mins Problem Qualifiers (1) Anemia: Qualified Code: D62 - Acute posthemorrhagic anemia Lamont Spear MD Sep 04, 2016 09:50
[2016-09-04] MEDS: FUROSEMIDE 40 MG/4 ML VIAL IV PUSH SCH ×2 (09:53→18:17)
[2016-09-04] MEDS: PROPOFOL 1000 MG/100 ML INJ 100 ML IV SCH ×4 (13:00→23:06)
--- NOTE | 2016-09-04 16:50 | HHI.PR ---
Subjective Subjective Notes Responsive but not in pain Objective Vitals/I&O Vital Signs Date Time Temp Pulse Resp B/P Pulse Ox O2 Delivery O2 Flow Rate FiO2 09/04/16 16:00 98.0 95 22 104/70 100 09/04/16 12:30 65 09/01/16 21:30 Ventilator Labs Laboratory Tests Test 09/04/16 09/04/16 03:56 04:06 Blood Gas Puncture Site ART LINE Blood Gas Patient Temperature 98.6 Blood Gas HCO3 20 Blood Gas Base Excess -3.7 Blood Gas Oxygen Saturation 97 Arterial Blood pH 7.40 Arterial Blood Partial 33 Pressure CO2 Arterial Blood Partial 128 Pressure O2 Arterial Blood Oxygen Content 11.5 Arterial Blood 1.5 Carboxyhemoglobin Arterial Blood Methemoglobin 0.8 Blood Gas Hemoglobin 8.2 Oxygen Delivery Device VENTILATOR Blood Gas Ventilator Setting PRVC/AC Blood Gas Inspired Oxygen 40 Hemoglobin 8.2 Hematocrit 23.0 Sodium Level 129 Potassium Level 3.6 Chloride Level 97 Carbon Dioxide Level 21.8 Anion Gap 10 Blood Urea Nitrogen 14 Creatinine 1.10 Estimat Glomerular Filtration 65 Rate Random Glucose 156 Calcium Level 6.1 Protein Corrected Calcium 8.0 Total Bilirubin 1.6 Aspartate Amino Transf 16 (AST/SGOT) Alanine Aminotransferase 13 (ALT/SGPT) Alkaline Phosphatase 47 Total Protein 3.4 Albumin 1.6 Lungs: Clear Abdomen: Non-distended, Other (Colostomy viable; minimal serosanguinous drainage in colostomy bag) A/P Assessment and Plan POD #3 subtotal colectomy Still on large amount pressors, but renal function surprisingly near normal with good urine output. Plan: Wean pressors Palliative care to meet with family Wednesday 09/06 Daron Mcadams MD Sep 04, 2016 16:50
[2016-09-04 16:55] LABS: BICARBONATE 23.3 MEQ/L (21.0-32.0); MAGNESIUM 0.7 MG/DL (1.5-2.5); POTASSIUM 3.2 MEQ/L (3.5-5.1)
[2016-09-04 17:18] LABS: CALCIUM-PROTEIN CORRECTED 7.5 MG/DL (8.5-10.1)
[2016-09-04] MEDS ORDERED: MAGNESIUM SULFATE 1 GM PREMIX 100 ML ONE (17:36)
[2016-09-04] MEDS: POTASSIUM CHLOR 40 MEQ PREMIX 100 ML IV PRN ×2 (17:39→19:14)
[2016-09-05] VITALS (15 sets, daily range): BP systolic 89–95; BP diastolic 55–64; PULSE 80–100; RESP 16–22; TEMP 96.5–98.7; O2SAT 100
[2016-09-05 00:23] LABS: BICARBONATE 22.3 MEQ/L (21.0-32.0); MAGNESIUM 1.3 MG/DL (1.5-2.5); POTASSIUM 3.5 MEQ/L (3.5-5.1)
[2016-09-05 00:34] LABS: CALCIUM-PROTEIN CORRECTED 7.7 MG/DL (8.5-10.1)
[2016-09-05] MEDS: NOREPINEPHRINE INJ 4 MG in SODIUM CHLOR 0.9% 250 ML INJ 246 ML IV SCH ×5 (01:19→10:00)
[2016-09-05] MEDS: MAGNESIUM SULFATE INJ 2 GM in SODIUM CHLORIDE 0.9% INJ 96 ML IV PRN ×2 (01:19→10:10)
[2016-09-05] MEDS: PROPOFOL 1000 MG/100 ML INJ 100 ML IV SCH ×6 (01:28→20:28)
[2016-09-05] MEDS ORDERED: NOREPINEPHRINE 4 MG/4 ML AMP ONE (03:15)
[2016-09-05] MEDS: CHLORHEXIDINE GLUCONATE 2 % 1 PACK (2 CLOTHS) TOP SCH (03:18)
[2016-09-05] MEDS: metroNIDAZOLE 500 MG INJ 100 ML IV SCH ×3 (03:18→20:27)
[2016-09-05] MEDS: PHENYLEPHRINE HCL 160 MG/D5W 484 ML ADMIX IV SCH ×2 (04:02)
[2016-09-05] MEDS: DOBUTamine INJ 500 MG in DEXTROSE 5% IN WATER INJ 210 ML IV SCH ×8 (04:03→17:53)
[2016-09-05] MEDS: PANTOPRAZOLE SODIUM 40 MG VIAL IV SCH ×2 (05:01→17:53)
[2016-09-05] MEDS: METOCLOPRAMIDE HCL 10 MG/2 ML VIAL IV PUSH SCH ×3 (05:01→20:28)
[2016-09-05] MEDS: VASOPRESSIN INJ 40 UNITS in DEXTROSE 5% IN WATER 100ML INJ 98 ML IV SCH ×4 (06:36→17:54)
[2016-09-05 08:51] LABS: MAGNESIUM 1.5 MG/DL (1.5-2.5); POTASSIUM 3.7 MEQ/L (3.5-5.1)
[2016-09-05] MEDS: SODIUM CHLORIDE 0.9% FLUSH 5 ML FLUSH IV FLUSH SCH ×2 (09:00→20:27)
[2016-09-05 09:21] LABS: CALCIUM-PROTEIN CORRECTED 7.3 MG/DL (8.5-10.1)
[2016-09-05] MEDS: FUROSEMIDE 40 MG/4 ML VIAL IV PUSH SCH ×2 (10:28→17:53)
[2016-09-05] MEDS: NOREPINEPHRINE INJ 16 MG in SODIUM CHLOR 0.9% 250 ML INJ 234 ML IV SCH ×2 (11:32→15:57)
--- NOTE | 2016-09-05 11:43 | HHI.CCPN ---
Subjective Remarks/Hospital Course S/P extubation after hypovolemic shock from major lower GI bleed. He has received 12 units of blood and has now started actively bleeding again for the 3rd time in 72 hours. 08/25: Bled again last night, now stable. Tagged red cell study does not show a source. 08/26: Stable hemodynamics and Hgb, No bleeding. 08/31: Patient has now received 20 units of blood in transfusion. Exhaustive search for bleeding site has not revealed a source. Now patient has markedly decreased pulses left foot. 09/01: Threatened limb loss left leg due to acute arterial insufficiency. Discussed with Dr. Carty who has observed from arteriogram that patient has interrupted inflow at the left common iliac; thrombectomy not beneficial in the context of extensive pelvic collaterals and probably harmful. Patient started bleeding profusely from rectum, BRB. Systolic blood pressure dropped from 146 to 62 and patient became clammy, cool. Pulse to 132. Levophed started at 20 mics /min. After 4 units prbcs infused, levophed to 5 mics/min and SBP 118. P 102. He will be taken immediately to the OR now for colectomy. Most likely site is left/sigmoid colon. 09/02: Hypovolemic shock last night, hypotension persists. S/P subtotal colectomy now with SBP 55. Acid-base balance acceptable, peripheral perfusion marginal. Clearly still in shock. Excellent and aggressive volume and coag replacement overnight. 09/03: We have transfused 30 units but bleeding appears to have ceased after colectomy. 09/04: Bleeding has stopped after left colectomy, now recovering from shock state. 09/05: Remains orally intubated on mechanical ventilation on high-dose of pressors. Objective Vital Signs Date Time Temp Pulse Resp B/P Pulse Ox O2 Delivery O2 Flow Rate FiO2 09/05/16 08:47 100 30 09/05/16 08:00 98.7 98 22 89/62 09/01/16 21:30 Ventilator Intake and Output 09/04/16 09/04/16 09/05/16 08:00 16:00 00:00 Intake Total 3798 ml 3704 ml 2928 ml Output Total 1350 ml 2550 ml 3650 ml Balance 2448 ml 1154 ml -722 ml Result Diagram: 09/04/16 0406 09/05/16 0805 Objective Remarks GENERAL: Edematous SKIN: Warm HEAD: Normocephalic.. NECK: Supple, orally intubated. CARDIOVASCULAR: Irreg Irreg, no JVD. Rate 92 - 112 RESPIRATORY: Diffuse crackles. Tachypnea. Mechanical ventilation. Light wheezes, GASTROINTESTINAL: Abdomen soft, non-tender, nondistended. BS active. No guarding. MUSCULOSKELETAL: Tepid, legs marginally perfused. 3+ edema left, 1+ right leg. NEURO: Sedated, Opens eyes to loud voice. Withdraws arms to pain. Tracks with eyes. A/P Problem List: (1) Hypovolemic shock ICD Code: R57.1 Status: Acute (2) Lower GI bleeding ICD Code: K92.2 Status: Acute (3) Anticoagulated ICD Code: Z79.01 Status: Acute (4) Acute kidney injury ICD Code: N17.9 Status: Acute (5) Anemia ICD Code: D64.9 Status: Acute Assessment and Plan GI bleed - left colon diverticular bleed - PPI BID - GI following - colonoscopy 08/22 w/o obvious source of bleed, - serial H&H -total transfusion 30 units - s/p subtotal colectomy. Anemia of blood loss - transfuse for hemodynamic instability - transfuse to keep Hg > 8 (recent ACS) - Transfuse 4 unit now Total 30 units since GI bleed. -T&C 4 FFP, 1 platelets 09.03 CAD - hold anticoagulation due to acute hemorrhage - supportive care - hold all antiplatelet meds Respiratory failure - intubated for an airway protection - extubated 08/23 -Reintubated 09/01 for shock Hypotension - blood loss - volume replacement - cardiogenic component? - Slowly tapering Levophed, vasopressin, dobutamine REJI - volume loss - i.v. fluids resuscitation - monitor electrolytes and renal functions -now overloaded Atrial Fibrillation - rate controlled - resume home meds when hemodynamically stable, no anticoagulation - rate well controlled Diabetes - SSI for euglycemia - hold p.o. meds GERD - PPI DVT/GI prophylaxis - SCDs/PPI BID Acute arterial insufficiency left leg -S/P left iliac artery bypass -Threatened limb loss. Remains marginal. Overall impression: Hypovolemic shock for 3rd time in recent days -> to OR for subtotal colectomy. Now recovering from shock sate. Remains critically ill and unstable, still requiring excessive vasopressor support and unable to wean ventilator. Critical Care 40 mins Problem Qualifiers (1) Anemia: Qualified Code: D62 - Acute posthemorrhagic anemia Joby Lopes MD Sep 05, 2016 11:43
[2016-09-05] MEDS ORDERED: CALCIUM GLUCONATE INJ 2 GM in DEXTROSE 5% IN WATER 100ML INJ 100 ML IV ONE ×2 (11:45)
[2016-09-05 16:13] LABS: BICARBONATE 23.4 MEQ/L (21.0-32.0); MAGNESIUM 1.7 MG/DL (1.5-2.5); POTASSIUM 3.3 MEQ/L (3.5-5.1)
[2016-09-05 16:30] LABS: CALCIUM-PROTEIN CORRECTED 7.7 MG/DL (8.5-10.1)
[2016-09-05] MEDS: POTASSIUM CHLOR 40 MEQ PREMIX 100 ML IV PRN (16:33)
[2016-09-05 21:07] LABS: MEAN CORPUSCULAR HGB CONC 36.2 % (32.0-36.0)
--- NOTE | 2016-09-05 22:07 | HHI.PR ---
Subjective Subjective Notes DAILY PROGRESS NOTE FOR SURGICAL ATTENDING, DR. MARCO ANTONIO CHRISTOPHER On the vent numerous trips Discussed with nurse's Objective Vitals/I&O Vital Signs Date Time Temp Pulse Resp B/P Pulse Ox O2 Delivery O2 Flow Rate FiO2 09/05/16 20:58 100 30 09/05/16 20:00 97 09/05/16 16:00 96.5 16 92/62 09/01/16 21:30 Ventilator Labs Laboratory Tests Test 09/04/16 09/05/16 09/05/16 23:56 08:05 15:08 Sodium Level 126 125 124 Potassium Level 3.5 3.7 3.3 Chloride Level 93 93 92 Carbon Dioxide Level 22.3 21.0 23.4 Anion Gap 11 11 9 Blood Urea Nitrogen 12 11 11 Creatinine 1.17 1.17 1.08 Estimat Glomerular Filtration 61 61 67 Rate Random Glucose 182 160 168 Calcium Level 6.0 5.6 6.1 Protein Corrected Calcium 7.7 7.3 7.7 Phosphorus Level 1.8 2.8 Magnesium Level 1.3 1.5 1.7 Total Protein 3.6 3.5 3.8 Radiology Last Impressions Chest X-Ray 09/02/16 0000 Signed Impressions: Service Date/Time: August 06:18 - CONCLUSION: Increasing bibasilar infiltrates, right greater than left. 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 There is reconstitution distally. CT angiography of the abdominal aorta and lower extremities is recommended for further evaluation if clinically indicated. Vasu Montanez MD Foot X-Ray 08/29/16 0000 Signed Impressions: Service Date/Time: Monday, August 29, 2016 15:17 - CONCLUSION: No acute abnormality is seen. There is chronic change as described above. Uziel Cooper MD Ankle X-Ray 08/29/16 0000 Signed Impressions: Service Date/Time: Monday, August 29, 2016 15:04 - CONCLUSION: 1. Soft-tissue swelling at the ankle without a fracture seen. 2. 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 Uziel Cooper MD Abdominal Angiography 08/28/16 0000 Signed Impressions: Service Date/Time: Sunday, August 28, 2016 17:58 - CONCLUSION: 1. 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 2. The bypass of course excludes access to the origin of the ZACHARY. 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 3. No active hemorrhage identified in the celiac or SMA. Ephraim Garcia MD GI Bleed Scan Nuclear Medicine 08/24/16 0000 Signed Impressions: Service Date/Time: Wednesday, August 24, 2016 14:53 - CONCLUSION: A GI bleed is not seen. Uziel Cooper MD Cardiovascular: Regular Abdomen: Other (ostomy little output) A/P Problem List: (1) Anemia (2) Lower GI bleeding Assessment and Plan 75-year-old gentleman subtotal colectomy ostomy Nurses report family is going to talk to palliative care in the morning Problem Qualifiers (1) Anemia: Qualified Code: D62 - Acute posthemorrhagic anemia Marco Antonio Christopher MD Sep 05, 2016 22:07
[2016-09-06] VITALS (18 sets, daily range): BP systolic 84–102; BP diastolic 54–62; PULSE 71–107; RESP 16; TEMP 97.6–98.4; O2SAT 99–100
[2016-09-06] MEDS: PROPOFOL 1000 MG/100 ML INJ 100 ML IV SCH ×3 (00:54→19:43)
[2016-09-06] MEDS: NOREPINEPHRINE INJ 16 MG in SODIUM CHLOR 0.9% 250 ML INJ 234 ML IV SCH (00:54)
[2016-09-06] MEDS: DOBUTamine INJ 500 MG in DEXTROSE 5% IN WATER INJ 210 ML IV SCH ×4 (00:54→05:02)
[2016-09-06 03:45] LABS: BASOPHIL # 0.1 TH/MM3 (0-0.2); BASOPHIL % 0.8 % (0.0-2.0); EOSINOPHIL # 0.2 TH/MM3 (0-0.4); EOSINOPHIL % 2.5 % (0.0-4.0); HEMATOCRIT 23.3 % (39.0-51.0); LYMPH % 6.8 % (9.0-44.0); LYMPHOCYTE # 0.6 TH/MM3 (1.0-4.8); MEAN CELL VOLUME 86.3 FL (80.0-100.0); MEAN CORPUSCULAR HEMOGLOBIN 31.2 PG (27.0-34.0); MONO % 6.9 % (0.0-8.0); PLATELET COUNT 89 TH/MM3 (150-450); RED BLOOD COUNT 2.71 MIL/MM3 (4.50-5.90); RED CELL DISTRIBUTION WIDTH 16.4 % (11.6-17.2); WHITE BLOOD COUNT 8.5 TH/MM3 (4.0-11.0)
[2016-09-06 03:56] LABS: HEMO FLAGS AUTO DIFF
[2016-09-06] MEDS: CHLORHEXIDINE GLUCONATE 2 % 1 PACK (2 CLOTHS) TOP SCH (04:00)
[2016-09-06 04:03] LABS: BICARBONATE 24.2 MEQ/L (21.0-32.0); MAGNESIUM 1.5 MG/DL (1.5-2.5); POTASSIUM 3.4 MEQ/L (3.5-5.1)
[2016-09-06 04:25] LABS: CALCIUM-PROTEIN CORRECTED 7.8 MG/DL (8.5-10.1)
[2016-09-06] MEDS: metroNIDAZOLE 500 MG INJ 100 ML IV SCH ×3 (05:00→19:43)
[2016-09-06] MEDS: PANTOPRAZOLE SODIUM 40 MG VIAL IV SCH ×2 (05:00→19:12)
[2016-09-06] MEDS: METOCLOPRAMIDE HCL 10 MG/2 ML VIAL IV PUSH SCH ×3 (05:00→22:15)
[2016-09-06] MEDS: PHENYLEPHRINE HCL 160 MG/D5W 484 ML ADMIX IV SCH ×2 (05:02)
[2016-09-06 06:07] LABS: SCAN/DIFF AUTO DIFF CONFIRMED
[2016-09-06 06:08] LABS: PLATELET ESTIMATE SMEAR LOW (NORMAL); PLATELET MORPHOLOGY NORMAL (NORMAL)
[2016-09-06] MEDS: POTASSIUM CHLOR 40 MEQ PREMIX 100 ML IV PRN (06:28)
--- NOTE | 2016-09-06 09:56 | HHI.PR ---
Subjective Subjective Notes Intubated/Sedated Objective Vitals/I&O Vital Signs Date Time Temp Pulse Resp B/P Pulse Ox O2 Delivery O2 Flow Rate FiO2 09/06/16 08:00 99 30 09/06/16 06:00 98 09/06/16 04:00 98.4 16 87/54 Labs Laboratory Tests Test 09/05/16 09/06/16 15:08 03:30 Sodium Level 124 123 Potassium Level 3.3 3.4 Chloride Level 92 90 Carbon Dioxide Level 23.4 24.2 Anion Gap 9 9 Blood Urea Nitrogen 11 11 Creatinine 1.08 1.08 Estimat Glomerular Filtration 67 67 Rate Random Glucose 168 143 Calcium Level 6.1 6.1 Protein Corrected Calcium 7.7 7.8 Magnesium Level 1.7 1.5 Total Protein 3.8 3.7 White Blood Count 8.5 Red Blood Count 2.71 Hemoglobin 8.4 Hematocrit 23.3 Mean Corpuscular Volume 86.3 Mean Corpuscular Hemoglobin 31.2 Mean Corpuscular Hemoglobin 36.2 Concent Red Cell Distribution Width 16.4 Platelet Count 89 Mean Platelet Volume 9.2 Neutrophils (%) (Auto) 83.0 Lymphocytes (%) (Auto) 6.8 Monocytes (%) (Auto) 6.9 Eosinophils (%) (Auto) 2.5 Basophils (%) (Auto) 0.8 Neutrophils # (Auto) 7.0 Lymphocytes # (Auto) 0.6 Monocytes # (Auto) 0.6 Eosinophils # (Auto) 0.2 Basophils # (Auto) 0.1 CBC Comment AUTO DIFF Differential Comment AUTO DIFF CONFIRMED Platelet Estimate LOW Platelet Morphology Comment NORMAL Radiology Last Impressions Chest X-Ray 09/02/16 0000 Signed Impressions: Service Date/Time: August 06:18 - CONCLUSION: Increasing bibasilar infiltrates, right greater than left. 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 There is reconstitution distally. CT angiography of the abdominal aorta and lower extremities is recommended for further evaluation if clinically indicated. Vasu Montanez MD Foot X-Ray 08/29/16 0000 Signed Impressions: Service Date/Time: Monday, August 29, 2016 15:17 - CONCLUSION: No acute abnormality is seen. There is chronic change as described above. Uziel Cooper MD Ankle X-Ray 08/29/16 0000 Signed Impressions: Service Date/Time: Monday, August 29, 2016 15:04 - CONCLUSION: 1. Soft-tissue swelling at the ankle without a fracture seen. 2. 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 Uziel Cooper MD Abdominal Angiography 08/28/16 0000 Signed Impressions: Service Date/Time: Sunday, August 28, 2016 17:58 - CONCLUSION: 1. 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 2. The bypass of course excludes access to the origin of the ZACHARY. 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 3. No active hemorrhage identified in the celiac or SMA. Ephraim Garcia MD GI Bleed Scan Nuclear Medicine 08/24/16 0000 Signed Impressions: Service Date/Time: Wednesday, August 24, 2016 14:53 - CONCLUSION: A GI bleed is not seen. Uziel Cooper MD Cardiovascular: Regular Lungs: Clear Abdomen: Other (midline incision (stapled)--c/d/i; colostomy: stoma pink; SS drainage in bag; very minimal stool output; no blood) Extremities: Other (generlized edema ---much improved from Tuesday ) A/P Problem List: (1) Anemia (2) Lower GI bleeding Assessment and Plan 75 year old male with LGIB -POD5 Ex Lap and subtotal colectomy -Continues to require high pressor support -Hmg stable at 8.4 -Continue MANOLO to LIWS -NPO -Appreciate Palliative Care consult ---Family meeting scheduled for today -Discussed with MICHELLE Christina at bedside Attending Statement The exam, history, and the medical decision-making described in the above note were completed with the assistance of the mid-level provider. I reviewed and agree with the findings presented. I attest that I had a [id number] encounter with the patient on the same day, and personally performed and documented my assessment and findings in the medical record. Abdominal exam non-surgical, postop exam stable, MANOLO with clear fluid Problem Qualifiers (1) Anemia: Qualified Code: D62 - Acute posthemorrhagic anemia Haley Calloway Sep 06, 2016 09:56 Colt Smiley MD Oct 03, 2016 00:27
[2016-09-06] MEDS: SODIUM CHLORIDE 0.9% FLUSH 5 ML FLUSH IV FLUSH SCH ×2 (09:57→20:07)
[2016-09-06] MEDS: FUROSEMIDE 40 MG/4 ML VIAL IV PUSH SCH ×2 (10:39→19:12)
[2016-09-06] MEDS: VASOPRESSIN INJ 40 UNITS in DEXTROSE 5% IN WATER 100ML INJ 98 ML IV SCH ×4 (11:33→23:44)
--- NOTE | 2016-09-06 11:59 | HHI.HCPN ---
Reason for visit a. To assist with evaluation and management of symptoms including:Pain, generalized. Dyspnea. b. To assist medical decision maker(s) with: better understanding of current medical conditions; weighing benefits/burdens of medical treatment options; making medical treatment decisions. Subjective/Interval History Pt's bleeding appears to have stablized, remains on 4 different pressors, intubated and sedated. No alert on my visit today. Pt's , brother and sister in law at bedside. He is not grimacing today, and is much more comfortable. Non verbal, could not give hx of pain or dyspnea. Family/friend interactions Met with family today. Reviewed course of pt's decline, starting with fatigued and weakness several months ago. Pt's hospitalization is [facility], short stay in rehab, and current hospitalization. Went through pt's course of hospitalization, and complications. Discussed trach, artificial nutrition, code status, life support, prognosis and quality of life. Pt mentation have fluctuated, and per pt has been getting more and more confused, even before surgery and this past weekend. Pt's brother and sister in law confirm. 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 They feel given his recent hospitalizations, in decline, the challenges he faces, he would not want further aggressive measures and to transition to comfort measures only. He would not want Trach or peg/tpn. Family feels at this time, he should be switch to no code. They want pt's other brother to get here, but endorse to do compassionate/terminal extubation and transition comfort measures in the coming days. Family will make phone call to see when pt's brother will arrive. Ask palliative care to touch base tomorrow. Advance Directives Living Will: Never completed Health Care Surrogate: Never completed Durable Power of Cutter Tender: Never completed Objective Vital Signs Date Time Temp Pulse Resp B/P Pulse Ox O2 Delivery O2 Flow Rate FiO2 09/06/16 10:00 71 09/06/16 08:00 99 30 09/06/16 08:00 91 09/06/16 08:00 98.0 92 16 84/56 100 09/06/16 08:00 30 09/06/16 06:00 98 09/06/16 04:00 107 09/06/16 04:00 30 09/06/16 04:00 98.4 107 16 87/54 100 09/06/16 03:08 100 30 09/06/16 02:00 98 09/06/16 00:06 100 30 09/06/16 00:00 94 09/06/16 00:00 30 09/06/16 00:00 98.3 94 16 88/60 100 09/05/16 22:00 100 09/05/16 20:58 100 30 09/05/16 20:00 30 09/05/16 20:00 97.9 97 16 90/64 100 09/05/16 20:00 97 09/05/16 16:00 91 09/05/16 16:00 96.5 91 16 92/62 100 09/05/16 15:43 100 30 09/05/16 12:26 100 30 09/05/16 12:00 95 09/05/16 12:00 96.7 95 16 95/64 100 Intake & Output 09/06/16 09/06/16 07:00 19:00 Intake Total 2999 ml Output Total 6185 ml Balance -3186 ml IV Total 2999 ml Output Urine Total 4925 ml Stool Total 10 ml Drainage Total 1250 ml Physical Exam CONSTITUTIONAL/GENERAL: This is an adequately nourished patient, on ventilator, sedated. TUBES/LINES/DRAINS: drain s/p surgery. central line, intubated. SKIN: No jaundice, rashes, or lesions. Ecchymoses on upper extremities. No wounds seen anteriorly. Skin temperature appropriate. Not diaphoretic. HEAD: Atraumatic. Normocephalic. EYES: Pupils equal and round and reactive. Extraocular motions intact. No scleral icterus. No injection or drainage. Fundi not examined. ENT: Hearing grossly normal. Nose without bleeding or purulent drainage. ET tube in place NECK: Trachea midline. Supple, nontender. No palpable thyroid enlargement or nodularity. CARDIOVASCULAR: Regular rate and rhythm without murmurs, gallops, or rubs. No JVD. Peripheral pulses symmetric. RESPIRATORY/CHEST: decrease breath sound bilaterally. GASTROINTESTINAL: Abdomen soft, non-tender, nondistended. No hepato-splenomegaly , or palpable masses. No guarding. Bowel sounds present. GENITOURINARY: Without palpable bladder distension. House catheter in place. MUSCULOSKELETAL: Lower and upper ext edemetious. Pt have poor pulses bilaterally, discoloration of left leg. LYMPHATICS: No palpable cervical or supraclavicular adenopathy. NEUROLOGICAL:sedated, much more comfortable. Diagnostic Tests Laboratory Laboratory Tests Test 09/03/16 09/03/16 09/03/16 09/04/16 13:25 13:40 15:15 03:56 Potassium Level 3.7 MEQ/L (3.5-5.1) Hemoglobin 8.3 GM/DL (13.0-17.0) Hematocrit 23.1 % (39.0-51.0) Blood Gas Puncture Site ART LINE ART LINE Blood Gas Patient Temperature 98.6 98.6 Blood Gas HCO3 19 mmol/L 20 mmol/L (22-26) (22-26) Blood Gas Base Excess -4.5 mmol/L -3.7 mmol/L (-2-2) (-2-2) Blood Gas Oxygen Saturation 97 % (90-100) 97 % (90-100) Arterial Blood pH 7.43 7.40 (7.380-7.420) (7.380-7.420) Arterial Blood Partial 29 mmHg (38-42) 33 mmHg (38-42) Pressure CO2 Arterial Blood Partial 134 mmHg 128 mmHg Pressure O2 (61-120) (61-120) Arterial Blood Oxygen Content 11.2 Vol % 11.5 Vol % (12.0-20.0) (12.0-20.0) Arterial Blood 1.6 % (0-4) 1.5 % (0-4) Carboxyhemoglobin Arterial Blood Methemoglobin 0.8 % (0-2) 0.8 % (0-2) Blood Gas Hemoglobin 8.0 G/DL 8.2 G/DL (12.0-16.0) (12.0-16.0) Oxygen Delivery Device VENTILATOR VENTILATOR Blood Gas Ventilator Setting PRVC/AC PRVC/AC Blood Gas Inspired Oxygen 40 % 40 % Test 09/04/16 09/04/16 09/04/16 09/05/16 04:06 15:56 23:56 08:05 Hemoglobin 8.2 GM/DL (13.0-17.0) Hematocrit 23.0 % (39.0-51.0) Sodium Level 129 MEQ/L 127 MEQ/L 126 MEQ/L 125 MEQ/L (136-145) (136-145) (136-145) (136-145) Potassium Level 3.6 MEQ/L 3.2 MEQ/L 3.5 MEQ/L 3.7 MEQ/L (3.5-5.1) (3.5-5.1) (3.5-5.1) (3.5-5.1) Chloride Level 97 MEQ/L 93 MEQ/L 93 MEQ/L 93 MEQ/L (98-107) (98-107) (98-107) (98-107) Carbon Dioxide Level 21.8 MEQ/L 23.3 MEQ/L 22.3 MEQ/L 21.0 MEQ/L (21.0-32.0) (21.0-32.0) (21.0-32.0) (21.0-32.0) Anion Gap 10 MEQ/L (5-15) 11 MEQ/L (5-15) 11 MEQ/L (5-15) 11 MEQ/L (5-15) Blood Urea Nitrogen 14 MG/DL (7-18) 13 MG/DL (7-18) 12 MG/DL (7-18) 11 MG/DL (7- 18) Creatinine 1.10 MG/DL 1.16 MG/DL 1.17 MG/DL 1.17 MG/DL (0.60-1.30) (0.60-1.30) (0.60-1.30) (0.60-1.30) Estimat Glomerular Filtration 65 ML/MIN (>89) 62 ML/MIN (>89) 61 ML/MIN (>89) 61 ML/MIN (>89) Rate Random Glucose 156 MG/DL 177 MG/DL 182 MG/DL 160 MG/DL (74-106) (74-106) (74-106) (74-106) Calcium Level 6.1 MG/DL 5.9 MG/DL 6.0 MG/DL 5.6 MG/DL (8.5-10.1) (8.5-10.1) (8.5-10.1) (8.5-10.1) Protein Corrected Calcium 8.0 MG/DL 7.5 MG/DL 7.7 MG/DL 7.3 MG/DL (8.5-10.1) (8.5-10.1) (8.5-10.1) (8.5-10.1) Total Bilirubin 1.6 MG/DL (0.2-1.0) Aspartate Amino Transf 16 U/L (15-37) (AST/SGOT) Alanine Aminotransferase 13 U/L (12-78) (ALT/SGPT) Alkaline Phosphatase 47 U/L (45-117) Total Protein 3.4 GM/DL 3.8 GM/DL 3.6 GM/DL 3.5 GM/DL (6.4-8.2) (6.4-8.2) (6.4-8.2) (6.4-8.2) Albumin 1.6 GM/DL (3.4-5.0) Magnesium Level 0.7 MG/DL 1.3 MG/DL 1.5 MG/DL (1.5-2.5) (1.5-2.5) (1.5-2.5) Phosphorus Level 1.8 MG/DL 2.8 MG/DL (2.5-4.9) (2.5-4.9) Test 09/05/16 09/06/16 15:08 03:30 Sodium Level 124 MEQ/L 123 MEQ/L (136-145) (136-145) Potassium Level 3.3 MEQ/L 3.4 MEQ/L (3.5-5.1) (3.5-5.1) Chloride Level 92 MEQ/L 90 MEQ/L (98-107) (98-107) Carbon Dioxide Level 23.4 MEQ/L 24.2 MEQ/L (21.0-32.0) (21.0-32.0) Anion Gap 9 MEQ/L (5-15) 9 MEQ/L (5-15) Blood Urea Nitrogen 11 MG/DL (7-18) 11 MG/DL (7-18) Creatinine 1.08 MG/DL 1.08 MG/DL (0.60-1.30) (0.60-1.30) Estimat Glomerular Filtration 67 ML/MIN (>89) 67 ML/MIN (>89) Rate Random Glucose 168 MG/DL 143 MG/DL (74-106) (74-106) Calcium Level 6.1 MG/DL 6.1 MG/DL (8.5-10.1) (8.5-10.1) Protein Corrected Calcium 7.7 MG/DL 7.8 MG/DL (8.5-10.1) (8.5-10.1) Magnesium Level 1.7 MG/DL 1.5 MG/DL (1.5-2.5) (1.5-2.5) Total Protein 3.8 GM/DL 3.7 GM/DL (6.4-8.2) (6.4-8.2) White Blood Count 8.5 TH/MM3 (4.0-11.0) Red Blood Count 2.71 MIL/MM3 (4.50-5.90) Hemoglobin 8.4 GM/DL (13.0-17.0) Hematocrit 23.3 % (39.0-51.0) Mean Corpuscular Volume 86.3 FL (80.0-100.0) Mean Corpuscular Hemoglobin 31.2 PG (27.0-34.0) Mean Corpuscular Hemoglobin 36.2 % Concent (32.0-36.0) Red Cell Distribution Width 16.4 % (11.6-17.2) Platelet Count 89 TH/MM3 (150-450) Mean Platelet Volume 9.2 FL (7.0-11.0) Neutrophils (%) (Auto) 83.0 % (16.0-70.0) Lymphocytes (%) (Auto) 6.8 % (9.0-44.0) Monocytes (%) (Auto) 6.9 % (0.0-8.0) Eosinophils (%) (Auto) 2.5 % (0.0-4.0) Basophils (%) (Auto) 0.8 % (0.0-2.0) Neutrophils # (Auto) 7.0 TH/MM3 (1.8-7.7) Lymphocytes # (Auto) 0.6 TH/MM3 (1.0-4.8) Monocytes # (Auto) 0.6 TH/MM3 (0-0.9) Eosinophils # (Auto) 0.2 TH/MM3 (0-0.4) Basophils # (Auto) 0.1 TH/MM3 (0-0.2) CBC Comment AUTO DIFF Differential Comment AUTO DIFF CONFIRMED Platelet Estimate LOW (NORMAL) Platelet Morphology Comment NORMAL (NORMAL) Result Diagram: 09/06/16 0330 09/06/16 0330 Imaging Last Impressions Chest X-Ray 09/02/16 0000 Signed Impressions: Service Date/Time: August 06:18 - CONCLUSION: Increasing bibasilar infiltrates, right greater than left. 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 There is reconstitution distally. CT angiography of the abdominal aorta and lower extremities is recommended for further evaluation if clinically indicated. Vasu Montanez MD Foot X-Ray 08/29/16 0000 Signed Impressions: Service Date/Time: Monday, August 29, 2016 15:17 - CONCLUSION: No acute abnormality is seen. There is chronic change as described above. Uziel Cooper MD Ankle X-Ray 08/29/16 0000 Signed Impressions: Service Date/Time: Monday, August 29, 2016 15:04 - CONCLUSION: 1. Soft-tissue swelling at the ankle without a fracture seen. 2. 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 Uziel Cooper MD Abdominal Angiography 08/28/16 0000 Signed Impressions: Service Date/Time: Sunday, August 28, 2016 17:58 - CONCLUSION: 1. 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 2. The bypass of course excludes access to the origin of the ZACHARY. 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 3. No active hemorrhage identified in the celiac or SMA. Ephraim Garcia MD GI Bleed Scan Nuclear Medicine 08/24/16 0000 Signed Impressions: Service Date/Time: Wednesday, August 24, 2016 14:53 - CONCLUSION: A GI bleed is not seen. Uziel Cooper MD Assessment and Plan Disease Oriented Problem List: (1) Lower GI bleeding Comment: s/p colectomy (2) Anemia (3) Acute kidney injury (4) Hypovolemic shock (5) CHF (congestive heart failure) (6) Respiratory failure (7) Ischemic leg Symptom Scale: (1) Dyspnea 0-10 Scale: Unable to quantify (2) Encephalopathy 0-10 Scale: Unable to quantify (3) Pain 0-10 Scale: Unable to quantify Comment: ischemic leg, but generalized pain. s/p surgery etc... Pertinent Non-Medical Issues Psychosocial: Spiritual: Legal: Ethical issues impacting care: Important Contacts Sobeida Kovacs [phone] Prognosis 75 year old with cardiac disease, came in with GI bleed. Course of hospitalization complicated by hypovolemic shock, anemia (inability to find source of bleed with taged red blood cell, and colonoscopy) respiratory failure , continue GI bleed, and ischemic left leg in which pt faced dilemma of not being able to anticoagulate due to GI bleed. Extubated on 08/23 but reintubated 09/01. Pt is s/p colectomy 09/01, but remainshave hypovolemic shock, on large amount of pressors, and on ventilator, difficult to wean. Prognosis appears poor. Code Status: Full Code Plan == code: No code. == Capacity- Even prior to surgery and sedation, pt had been confused according to the family. Pt currently does not have capacity to make medical decisions. == HCP= , under [place] Statutes. == goals of care: Met with family today. Reviewed course of pt's decline, starting with fatigued and weakness several months ago. Pt's hospitalization is [facility], short stay in rehab, and current hospitalization. Went through pt's course of hospitalization, and complications. Discussed trach, artificial nutrition, code status, life support, prognosis and quality of life. Pt mentation have fluctuated, and per pt has been getting more and more confused, even before surgery and this past weekend. Pt's brother and sister in law confirms. 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 They feel given his recent hospitalizations, in decline, the challenges he faces, he would not want further aggressive measures and to transition to comfort measures only. He would not want Trach or peg/tpn. Family feels at this time, he should be switch to no code. They want pt's other brother to get here, but endorse to do compassionate/terminal extubation and transition comfort measures in the coming days. Family will make phone call to see when pt's brother will arrive. Ask palliative care to touch base tomorrow. == pain- no new med rec right now. No grimacing today, much more comfortable ==Dyspnea- pt intubated/ deferred to jewelry sales representative. == Palliative care will follow. == d/w with jewelry sales representative/ attending, aware of decision to transition to comfort measures only, and supportive of decision. Family wants pt to remain comfortable. == d/w with attending physician/ Dr. Lopes . Time Spent Total Floor Time (mins): 60 Face to Face Time (mins): 35 >50% Counseling/Coord of Care: Yes Attestation To help prompt me to consider important information that might be impacting today's encounter and assessment, information from prior notes written by myself or my colleagues may have been "brought forward" into today's note. My signature on this note, however, is an attestation that I personally performed the exam, history, and/or decision-making noted today, and, unless otherwise indicated, the interactions with patient, family, and staff as well as the review of records all occurred today. I also attest that the listed assessment and stated plan reflect my best clinical judgment today based on the combination of historical information, prior notes, and today's exam/ interactions. When time spent is documented, it refers only to time spent today by the signer, or if indicated, combined time spent today by collaborating physician/nurse practitioner. Jassi Ruby MD Sep 06, 2016 11:59
--- NOTE | 2016-09-06 14:05 | HHI.CCPN ---
Subjective Remarks/Hospital Course S/P extubation after hypovolemic shock from major lower GI bleed. He has received 12 units of blood and has now started actively bleeding again for the 3rd time in 72 hours. 08/25: Bled again last night, now stable. Tagged red cell study does not show a source. 08/26: Stable hemodynamics and Hgb, No bleeding. 08/31: Patient has now received 20 units of blood in transfusion. Exhaustive search for bleeding site has not revealed a source. Now patient has markedly decreased pulses left foot. 09/01: Threatened limb loss left leg due to acute arterial insufficiency. Discussed with Dr. Carty who has observed from arteriogram that patient has interrupted inflow at the left common iliac; thrombectomy not beneficial in the context of extensive pelvic collaterals and probably harmful. Patient started bleeding profusely from rectum, BRB. Systolic blood pressure dropped from 146 to 62 and patient became clammy, cool. Pulse to 132. Levophed started at 20 mics /min. After 4 units prbcs infused, levophed to 5 mics/min and SBP 118. P 102. He will be taken immediately to the OR now for colectomy. Most likely site is left/sigmoid colon. 09/02: Hypovolemic shock last night, hypotension persists. S/P subtotal colectomy now with SBP 55. Acid-base balance acceptable, peripheral perfusion marginal. Clearly still in shock. Excellent and aggressive volume and coag replacement overnight. 09/03: We have transfused 30 units but bleeding appears to have ceased after colectomy. 09/04: Bleeding has stopped after left colectomy, now recovering from shock state. 09/05: Remains orally intubated on mechanical ventilation on high-dose of pressors. 09/06: Remains orally intubated on mechanical ventilation. Still on high doses of pressors. Objective Vital Signs Date Time Temp Pulse Resp B/P Pulse Ox O2 Delivery O2 Flow Rate FiO2 09/06/16 12:00 89 09/06/16 12:00 30 09/06/16 12:00 98.3 16 91/57 100 Intake and Output 09/05/16 09/05/16 09/06/16 08:00 16:00 00:00 Intake Total 2858 ml 2489 ml 1637 ml Output Total 3050 ml 3120 ml 3955 ml Balance -192 ml -631 ml -2318 ml Result Diagram: 09/06/1632909/06/16329 Objective Remarks GENERAL: Edematous SKIN: Warm HEAD: Normocephalic.. NECK: Supple, orally intubated. CARDIOVASCULAR: Irreg Irreg, no JVD. Rate 92 - 112 RESPIRATORY: Diffuse crackles. Tachypnea. Mechanical ventilation. Light wheezes, GASTROINTESTINAL: Abdomen soft, non-tender, nondistended. BS active. No guarding. MUSCULOSKELETAL: Tepid, legs marginally perfused. 3+ edema left, 1+ right leg. NEURO: Sedated, Opens eyes to loud voice. Withdraws arms to pain. Tracks with eyes. A/P Problem List: (1) Hypovolemic shock ICD Code: R57.1 Status: Acute (2) Lower GI bleeding ICD Code: K92.2 Status: Acute (3) Anticoagulated ICD Code: Z79.01 Status: Acute (4) Acute kidney injury ICD Code: N17.9 Status: Acute (5) Anemia ICD Code: D64.9 Status: Acute Assessment and Plan GI bleed - left colon diverticular bleed - PPI BID - GI following - colonoscopy 08/22 w/o obvious source of bleed, - serial H&H -total transfusion 30 units - s/p subtotal colectomy. Anemia of blood loss - transfuse for hemodynamic instability - transfuse to keep Hg > 8 (recent ACS) - Transfused Total 30 units since GI bleed. -T&C 4 FFP, 1 platelets 09.03 CAD - hold anticoagulation due to acute hemorrhage - supportive care - hold all antiplatelet meds Respiratory failure - intubated for an airway protection - extubated 08/23 -Reintubated 09/01 for shock Hypotension - blood loss - volume replacement - cardiogenic component? - On Levophed, Neosynephrine, vasopressin, dobutamine REJI - volume loss - i.v. fluids resuscitation - monitor electrolytes and renal functions -now overloaded Atrial Fibrillation - rate controlled - resume home meds when hemodynamically stable, no anticoagulation - rate well controlled Diabetes - SSI for euglycemia - hold p.o. meds GERD - PPI DVT/GI prophylaxis - SCDs/PPI BID Acute arterial insufficiency left leg -S/P left iliac artery bypass -Threatened limb loss. Remains marginal. Overall impression: Hypovolemic shock for 3rd time in recent days -> to OR for subtotal colectomy. Now recovering from shock state. Remains critically ill and unstable, still requiring excessive vasopressor support and unable to wean ventilator. Patient would need tracheostomy if continued aggressive care desired. Discussed palliative care. Family does not wish to pursue aggressive measures and are deciding regarding possible de-escalation of therapy as they do not feel patient would want a tracheostomy. Critical Care 40 mins Problem Qualifiers (1) Anemia: Qualified Code: D62 - Acute posthemorrhagic anemia Joby Lopes MD Sep 06, 2016 14:05
[2016-09-06 17:30] LABS: BICARBONATE 25.2 MEQ/L (21.0-32.0); MAGNESIUM 1.3 MG/DL (1.5-2.5); POTASSIUM 3.3 MEQ/L (3.5-5.1)
[2016-09-06 17:47] LABS: CALCIUM-PROTEIN CORRECTED 7.9 MG/DL (8.5-10.1)
[2016-09-07] VITALS (19 sets, daily range): BP systolic 93–106; BP diastolic 58–64; PULSE 78–91; RESP 16–20; TEMP 97.8–98.6; O2SAT 100
[2016-09-07] MEDS: PROPOFOL 1000 MG/100 ML INJ 100 ML IV SCH ×6 (00:37→20:41)
[2016-09-07] MEDS: CHLORHEXIDINE GLUCONATE 2 % 1 PACK (2 CLOTHS) TOP SCH (04:00)
[2016-09-07 04:13] LABS: AUTOMATED NEUTROPHIL # 9.8 TH/MM3 (1.8-7.7); BASOPHIL # 0.1 TH/MM3 (0-0.2); BASOPHIL % 0.9 % (0.0-2.0); EOSINOPHIL # 0.2 TH/MM3 (0-0.4); EOSINOPHIL % 1.6 % (0.0-4.0); HEMATOCRIT 25.8 % (39.0-51.0); LYMPHOCYTE # 0.7 TH/MM3 (1.0-4.8); MEAN CELL VOLUME 86.8 FL (80.0-100.0); MEAN CORPUSCULAR HEMOGLOBIN 30.5 PG (27.0-34.0); MEAN CORPUSCULAR HGB CONC 35.1 % (32.0-36.0); MONO % 8.6 % (0.0-8.0); NEUT % 82.9 % (16.0-70.0); PLATELET COUNT 145 TH/MM3 (150-450); RED BLOOD COUNT 2.97 MIL/MM3 (4.50-5.90); RED CELL DISTRIBUTION WIDTH 16.6 % (11.6-17.2); WHITE BLOOD COUNT 11.8 TH/MM3 (4.0-11.0)
[2016-09-07 04:14] LABS: HEMO FLAGS AUTO DIFF
[2016-09-07] MEDS: metroNIDAZOLE 500 MG INJ 100 ML IV SCH ×3 (04:14→20:41)
[2016-09-07 04:34] LABS: BICARBONATE 24.5 MEQ/L (21.0-32.0); MAGNESIUM 1.3 MG/DL (1.5-2.5)
[2016-09-07] MEDS: METOCLOPRAMIDE HCL 10 MG/2 ML VIAL IV PUSH SCH ×3 (04:49→20:42)
[2016-09-07] MEDS: PANTOPRAZOLE SODIUM 40 MG VIAL IV SCH ×2 (04:49→17:44)
[2016-09-07 05:00] LABS: CALCIUM-PROTEIN CORRECTED 7.9 MG/DL (8.5-10.1)
[2016-09-07] MEDS: MAGNESIUM SULFATE INJ 2 GM in SODIUM CHLORIDE 0.9% INJ 96 ML IV PRN (05:17)
[2016-09-07 07:19] LABS: SCAN/DIFF AUTO DIFF CONFIRMED
[2016-09-07 07:20] LABS: KERATOCYTES OCC (NORMAL); PLATELET ESTIMATE SMEAR LOW (NORMAL); PLATELET MORPHOLOGY NORMAL (NORMAL)
[2016-09-07] MEDS: SODIUM CHLORIDE 0.9% FLUSH 5 ML FLUSH IV FLUSH SCH ×2 (09:36→20:42)
[2016-09-07] MEDS: FUROSEMIDE 40 MG/4 ML VIAL IV PUSH SCH ×2 (09:38→17:45)
[2016-09-07] MEDS: POTASSIUM CHLOR 40 MEQ PREMIX 100 ML IV PRN ×2 (09:42)
--- NOTE | 2016-09-07 12:22 | HHI.PR ---
Subjective Subjective Notes Intubated/Sedated Objective Vitals/I&O Vital Signs Date Time Temp Pulse Resp B/P Pulse Ox O2 Delivery O2 Flow Rate FiO2 09/07/16 12:05 100 30 09/07/16 06:00 88 09/07/16 04:00 97.8 16 106/63 Labs Laboratory Tests Test 09/06/16 09/07/16 16:50 03:55 Sodium Level 122 122 Potassium Level 3.3 3.0 Chloride Level 88 87 Carbon Dioxide Level 25.2 24.5 Anion Gap 9 11 Blood Urea Nitrogen 11 10 Creatinine 1.04 1.05 Estimat Glomerular Filtration 70 69 Rate Random Glucose 150 127 Calcium Level 6.3 6.4 Protein Corrected Calcium 7.9 7.9 Magnesium Level 1.3 1.3 Total Protein 4.0 4.1 White Blood Count 11.8 Red Blood Count 2.97 Hemoglobin 9.1 Hematocrit 25.8 Mean Corpuscular Volume 86.8 Mean Corpuscular Hemoglobin 30.5 Mean Corpuscular Hemoglobin 35.1 Concent Red Cell Distribution Width 16.6 Platelet Count 145 Mean Platelet Volume 9.1 Neutrophils (%) (Auto) 82.9 Lymphocytes (%) (Auto) 6.0 Monocytes (%) (Auto) 8.6 Eosinophils (%) (Auto) 1.6 Basophils (%) (Auto) 0.9 Neutrophils # (Auto) 9.8 Lymphocytes # (Auto) 0.7 Monocytes # (Auto) 1.0 Eosinophils # (Auto) 0.2 Basophils # (Auto) 0.1 CBC Comment AUTO DIFF Differential Comment AUTO DIFF CONFIRMED Platelet Estimate LOW Platelet Morphology Comment NORMAL Keratocytes OCC Radiology Last Impressions Chest X-Ray 09/02/16 0000 Signed Impressions: Service Date/Time: August 06:18 - CONCLUSION: Increasing bibasilar infiltrates, right greater than left. 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 There is reconstitution distally. CT angiography of the abdominal aorta and lower extremities is recommended for further evaluation if clinically indicated. Vasu Montanez MD Foot X-Ray 08/29/16 0000 Signed Impressions: Service Date/Time: Monday, August 29, 2016 15:17 - CONCLUSION: No acute abnormality is seen. There is chronic change as described above. Uziel Cooper MD Ankle X-Ray 08/29/16 0000 Signed Impressions: Service Date/Time: Monday, August 29, 2016 15:04 - CONCLUSION: 1. Soft-tissue swelling at the ankle without a fracture seen. 2. 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 Uziel Cooper MD Abdominal Angiography 08/28/16 0000 Signed Impressions: Service Date/Time: Sunday, August 28, 2016 17:58 - CONCLUSION: 1. 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 2. The bypass of course excludes access to the origin of the ZACHARY. 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 3. No active hemorrhage identified in the celiac or SMA. Ephraim Garcia MD GI Bleed Scan Nuclear Medicine 08/24/16 0000 Signed Impressions: Service Date/Time: Wednesday, August 24, 2016 14:53 - CONCLUSION: A GI bleed is not seen. Uziel Cooper MD Cardiovascular: Regular Lungs: Clear Abdomen: Other (colostomy with stool output; stoma pink; midline incision with minimal drainage; MANOLO with SS drainage ) Extremities: No edema A/P Problem List: (1) Anemia (2) Lower GI bleeding Assessment and Plan 75 year old male with LGIB -POD6 Ex Lap and subtotal colectomy -Continues to require high pressor support -Continue MANOLO to LIWS -NPO -Appreciate Palliative Care consult ---Family has transitioned to comfort care -Discussed with MICHELLE Will at bedside -Will follow peripherally; please call with questions Attending Statement The exam, history, and the medical decision-making described in the above note were completed with the assistance of the mid-level provider. I reviewed and agree with the findings presented. I attest that I had a [id number] encounter with the patient on the same day, and personally performed and documented my assessment and findings in the medical record. significant support for BP, poor prognosis Problem Qualifiers (1) Anemia: Qualified Code: D62 - Acute posthemorrhagic anemia Haley Calloway Sep 07, 2016 12:22 Colt Smiley MD Oct 03, 2016 00:29
--- NOTE | 2016-09-07 14:15 | HHI.HCPN ---
Reason for visit a. To assist with evaluation and management of symptoms including:Pain ( generalized, and dyspnea). b. To assist medical decision maker(s) with: better understanding of current medical conditions; weighing benefits/burdens of medical treatment options; making medical treatment decisions. Subjective/Interval History The patient remains in shock, still on four pressor drugs, and minimally responsive (less responsive than yesterday). Remains on low-dose propofol. Family/friend interactions I discussed the patient's status at length with the patient's via telephone. She acknowledges that he continues to do poorly and she is certain that he would not want to be kept alive this way. There is additional family arriving from [facility], and we will all meet again in the morning when she will determine the time for withdrawal of life support. . Advance Directives Living Will: Never completed Health Care Surrogate: Never completed Durable Power of Offset Press Operator: Never completed Objective Vital Signs Date Time Temp Pulse Resp B/P Pulse Ox O2 Delivery O2 Flow Rate FiO2 09/07/16 12:05 100 30 09/07/16 07:57 100 30 09/07/16 06:00 88 09/07/16 04:20 100 30 09/07/16 04:00 97.8 82 16 106/63 100 09/07/16 04:00 82 09/07/16 04:00 30 09/07/16 02:00 78 09/07/16 01:04 100 30 09/07/16 00:00 30 09/07/16 00:00 86 09/07/16 00:00 97.9 86 20 93/62 100 09/06/16 22:17 100 30 09/06/16 22:00 86 09/06/16 20:00 30 09/06/16 20:00 82 09/06/16 20:00 97.6 82 16 95/62 100 09/06/16 19:36 100 30 09/06/16 18:00 72 09/06/16 16:00 93 09/06/16 16:00 30 09/06/16 16:00 98.4 84 16 102/62 100 09/06/16 15:53 100 30 Intake & Output 09/07/16 09/07/16 07:00 19:00 Intake Total 1810 ml Output Total 3375 ml Balance -1565 ml IV Total 1810 ml Output Urine Total 2700 ml Stool Total 25 ml Drainage Total 650 ml Physical Exam CONSTITUTIONAL/GENERAL: This is an adequately nourished patient, on ventilator, sedated. NECK: Trachea midline. Supple, nontender. No palpable thyroid enlargement or nodularity. CARDIOVASCULAR: Regular rate and rhythm without murmurs, gallops, or rubs. No JVD. Peripheral pulses symmetric. RESPIRATORY/CHEST: decrease breath sound bilaterally. GASTROINTESTINAL: Abdomen soft, non-tender, nondistended. No hepato-splenomegaly , or palpable masses. No guarding. Bowel sounds present. GENITOURINARY: Without palpable bladder distension. House catheter in place. MUSCULOSKELETAL: Lower and upper ext edematous. Pt have poor pulses bilaterally , discoloration of left leg. NEUROLOGICAL:sedated, much more comfortable. . Diagnostic Tests Laboratory Laboratory Tests Test 09/04/16 09/04/16 09/05/16 09/05/16 15:56 23:56 08:05 15:08 Sodium Level 127 MEQ/L 126 MEQ/L 125 MEQ/L 124 MEQ/L (136-145) (136-145) (136-145) (136-145) Potassium Level 3.2 MEQ/L 3.5 MEQ/L 3.7 MEQ/L 3.3 MEQ/L (3.5-5.1) (3.5-5.1) (3.5-5.1) (3.5-5.1) Chloride Level 93 MEQ/L 93 MEQ/L 93 MEQ/L 92 MEQ/L (98-107) (98-107) (98-107) (98-107) Carbon Dioxide Level 23.3 MEQ/L 22.3 MEQ/L 21.0 MEQ/L 23.4 MEQ/L (21.0-32.0) (21.0-32.0) (21.0-32.0) (21.0-32.0) Anion Gap 11 MEQ/L (5-15) 11 MEQ/L (5-15) 11 MEQ/L (5-15) 9 MEQ/L (5-15) Blood Urea Nitrogen 13 MG/DL (7-18) 12 MG/DL (7-18) 11 MG/DL (7-18) 11 MG/DL (7- 18) Creatinine 1.16 MG/DL 1.17 MG/DL 1.17 MG/DL 1.08 MG/DL (0.60-1.30) (0.60-1.30) (0.60-1.30) (0.60-1.30) Estimat Glomerular Filtration 62 ML/MIN (>89) 61 ML/MIN (>89) 61 ML/MIN (>89) 67 ML/MIN (>89) Rate Random Glucose 177 MG/DL 182 MG/DL 160 MG/DL 168 MG/DL (74-106) (74-106) (74-106) (74-106) Calcium Level 5.9 MG/DL 6.0 MG/DL 5.6 MG/DL 6.1 MG/DL (8.5-10.1) (8.5-10.1) (8.5-10.1) (8.5-10.1) Protein Corrected Calcium 7.5 MG/DL 7.7 MG/DL 7.3 MG/DL 7.7 MG/DL (8.5-10.1) (8.5-10.1) (8.5-10.1) (8.5-10.1) Magnesium Level 0.7 MG/DL 1.3 MG/DL 1.5 MG/DL 1.7 MG/DL (1.5-2.5) (1.5-2.5) (1.5-2.5) (1.5-2.5) Total Protein 3.8 GM/DL 3.6 GM/DL 3.5 GM/DL 3.8 GM/DL (6.4-8.2) (6.4-8.2) (6.4-8.2) (6.4-8.2) Phosphorus Level 1.8 MG/DL 2.8 MG/DL (2.5-4.9) (2.5-4.9) Test 09/06/16 09/06/16 09/07/16 03:30 16:50 03:55 White Blood Count 8.5 TH/MM3 11.8 TH/MM3 (4.0-11.0) (4.0-11.0) Red Blood Count 2.71 MIL/MM3 2.97 MIL/MM3 (4.50-5.90) (4.50-5.90) Hemoglobin 8.4 GM/DL 9.1 GM/DL (13.0-17.0) (13.0-17.0) Hematocrit 23.3 % 25.8 % (39.0-51.0) (39.0-51.0) Mean Corpuscular Volume 86.3 FL 86.8 FL (80.0-100.0) (80.0-100.0) Mean Corpuscular Hemoglobin 31.2 PG 30.5 PG (27.0-34.0) (27.0-34.0) Mean Corpuscular Hemoglobin 36.2 % 35.1 % Concent (32.0-36.0) (32.0-36.0) Red Cell Distribution Width 16.4 % 16.6 % (11.6-17.2) (11.6-17.2) Platelet Count 89 TH/MM3 145 TH/MM3 (150-450) (150-450) Mean Platelet Volume 9.2 FL 9.1 FL (7.0-11.0) (7.0-11.0) Neutrophils (%) (Auto) 83.0 % 82.9 % (16.0-70.0) (16.0-70.0) Lymphocytes (%) (Auto) 6.8 % 6.0 % (9.0-44.0) (9.0-44.0) Monocytes (%) (Auto) 6.9 % (0.0-8.0) 8.6 % (0.0-8.0) Eosinophils (%) (Auto) 2.5 % (0.0-4.0) 1.6 % (0.0-4.0) Basophils (%) (Auto) 0.8 % (0.0-2.0) 0.9 % (0.0-2.0) Neutrophils # (Auto) 7.0 TH/MM3 9.8 TH/MM3 (1.8-7.7) (1.8-7.7) Lymphocytes # (Auto) 0.6 TH/MM3 0.7 TH/MM3 (1.0-4.8) (1.0-4.8) Monocytes # (Auto) 0.6 TH/MM3 1.0 TH/MM3 (0-0.9) (0-0.9) Eosinophils # (Auto) 0.2 TH/MM3 0.2 TH/MM3 (0-0.4) (0-0.4) Basophils # (Auto) 0.1 TH/MM3 0.1 TH/MM3 (0-0.2) (0-0.2) CBC Comment AUTO DIFF AUTO DIFF Differential Comment AUTO DIFF AUTO DIFF CONFIRMED CONFIRMED Platelet Estimate LOW (NORMAL) LOW (NORMAL) Platelet Morphology Comment NORMAL NORMAL (NORMAL) (NORMAL) Sodium Level 123 MEQ/L 122 MEQ/L 122 MEQ/L (136-145) (136-145) (136-145) Potassium Level 3.4 MEQ/L 3.3 MEQ/L 3.0 MEQ/L (3.5-5.1) (3.5-5.1) (3.5-5.1) Chloride Level 90 MEQ/L 88 MEQ/L 87 MEQ/L (98-107) (98-107) (98-107) Carbon Dioxide Level 24.2 MEQ/L 25.2 MEQ/L 24.5 MEQ/L (21.0-32.0) (21.0-32.0) (21.0-32.0) Anion Gap 9 MEQ/L (5-15) 9 MEQ/L (5-15) 11 MEQ/L (5-15) Blood Urea Nitrogen 11 MG/DL (7-18) 11 MG/DL (7-18) 10 MG/DL (7-18) Creatinine 1.08 MG/DL 1.04 MG/DL 1.05 MG/DL (0.60-1.30) (0.60-1.30) (0.60-1.30) Estimat Glomerular Filtration 67 ML/MIN (>89) 70 ML/MIN (>89) 69 ML/MIN (>89) Rate Random Glucose 143 MG/DL 150 MG/DL 127 MG/DL (74-106) (74-106) (74-106) Calcium Level 6.1 MG/DL 6.3 MG/DL 6.4 MG/DL (8.5-10.1) (8.5-10.1) (8.5-10.1) Protein Corrected Calcium 7.8 MG/DL 7.9 MG/DL 7.9 MG/DL (8.5-10.1) (8.5-10.1) (8.5-10.1) Magnesium Level 1.5 MG/DL 1.3 MG/DL 1.3 MG/DL (1.5-2.5) (1.5-2.5) (1.5-2.5) Total Protein 3.7 GM/DL 4.0 GM/DL 4.1 GM/DL (6.4-8.2) (6.4-8.2) (6.4-8.2) Keratocytes OCC (NORMAL) Result Diagram: 09/07/16 0355 09/07/16 0355 Imaging Last Impressions Chest X-Ray 09/02/16 0000 Signed Impressions: Service Date/Time: August 06:18 - CONCLUSION: Increasing bibasilar infiltrates, right greater than left. 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 There is reconstitution distally. CT angiography of the abdominal aorta and lower extremities is recommended for further evaluation if clinically indicated. Vasu Montanez MD Foot X-Ray 08/29/16 0000 Signed Impressions: Service Date/Time: Monday, August 29, 2016 15:17 - CONCLUSION: No acute abnormality is seen. There is chronic change as described above. Uziel Cooper MD Ankle X-Ray 08/29/16 0000 Signed Impressions: Service Date/Time: Monday, August 29, 2016 15:04 - CONCLUSION: 1. Soft-tissue swelling at the ankle without a fracture seen. 2. 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 Uziel Cooper MD Abdominal Angiography 08/28/16 0000 Signed Impressions: Service Date/Time: Sunday, August 28, 2016 17:58 - CONCLUSION: 1. 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 2. The bypass of course excludes access to the origin of the ZACHARY. 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 3. No active hemorrhage identified in the celiac or SMA. Ephraim Garcia MD GI Bleed Scan Nuclear Medicine 08/24/16 0000 Signed Impressions: Service Date/Time: Wednesday, August 24, 2016 14:53 - CONCLUSION: A GI bleed is not seen. Uziel Cooper MD Assessment and Plan Disease Oriented Problem List: (1) Respiratory failure (2) Lower GI bleeding Comment: s/p colectomy (3) Hypovolemic shock (4) Anemia (5) Acute kidney injury (6) CHF (congestive heart failure) (7) Ischemic leg Symptom Scale: (1) Dyspnea 0-10 Scale: Unable to quantify (2) Encephalopathy 0-10 Scale: Unable to quantify (3) Pain 0-10 Scale: Unable to quantify Comment: ischemic leg, but generalized pain. s/p surgery etc... Pertinent Non-Medical Issues Psychosocial: Spiritual: Legal: The patient lacks capacity for decision-making and he will not regain that capacity. His is the proxy decision-maker. Ethical issues impacting care: None. ,. Important Contacts Spouse: Sobeida Kovacs [phone] . Prognosis 75 year old with cardiac disease, came in with GI bleed. Profound, persistent shock and respiratory failure. Prognosis appears very poor. . Code Status: Full Code Plan == code: DO NOT RESUSCITATE == Capacity- the patient is less responsive now and does not have capacity for decision making; his is the proxy decision-maker. == HCP= , under [place] Statutes. I do not see any other HCS designated. == goals of care: 09/07/16: I discussed the patient's status at length with the patient's via telephone. She acknowledges that he continues to do poorly and she is certain that he would not want to be kept alive this way. There is additional family arriving from [facility], and we will all meet again in the morning when she will determine the time for withdrawal of life support. == pain- no new med rec right now. He is more comfortable now.. Deferred to director child abuse therapy for now due to BP instability (4 pressors). Dyspnea- pt intubated, defer to director child abuse therapy. == Palliative care will continue to follow the patient during this hospitalization. . Time Spent Total Floor Time (mins): 41 Face to Face Time (mins): 25 >50% Counseling/Coord of Care: Yes Attestation To help prompt me to consider important information that might be impacting today's encounter and assessment, information from prior notes written by myself or my colleagues may have been "brought forward" into today's note. My signature on this note, however, is an attestation that I personally performed the exam, history, and/or decision-making noted today, and, unless otherwise indicated, the interactions with patient, family, and staff as well as the review of records all occurred today. I also attest that the listed assessment and stated plan reflect my best clinical judgment today based on the combination of historical information, prior notes, and today's exam/ interactions. When time spent is documented, it refers only to time spent today by the signer, or if indicated, combined time spent today by collaborating physician/nurse practitioner. Jenny Rios MD Sep 07, 2016 14:15
--- NOTE | 2016-09-07 16:59 | HHI.CCPN ---
Subjective Remarks/Hospital Course S/P extubation after hypovolemic shock from major lower GI bleed. He has received 12 units of blood and has now started actively bleeding again for the 3rd time in 72 hours. 08/25: Bled again last night, now stable. Tagged red cell study does not show a source. 08/26: Stable hemodynamics and Hgb, No bleeding. 08/31: Patient has now received 20 units of blood in transfusion. Exhaustive search for bleeding site has not revealed a source. Now patient has markedly decreased pulses left foot. 09/01: Threatened limb loss left leg due to acute arterial insufficiency. Discussed with Dr. Carty who has observed from arteriogram that patient has interrupted inflow at the left common iliac; thrombectomy not beneficial in the context of extensive pelvic collaterals and probably harmful. Patient started bleeding profusely from rectum, BRB. Systolic blood pressure dropped from 146 to 62 and patient became clammy, cool. Pulse to 132. Levophed started at 20 mics /min. After 4 units prbcs infused, levophed to 5 mics/min and SBP 118. P 102. He will be taken immediately to the OR now for colectomy. Most likely site is left/sigmoid colon. 09/02: Hypovolemic shock last night, hypotension persists. S/P subtotal colectomy now with SBP 55. Acid-base balance acceptable, peripheral perfusion marginal. Clearly still in shock. Excellent and aggressive volume and coag replacement overnight. 09/03: We have transfused 30 units but bleeding appears to have ceased after colectomy. 09/04: Bleeding has stopped after left colectomy, now recovering from shock state. 09/05: Remains orally intubated on mechanical ventilation on high-dose of pressors. 09/06: Remains orally intubated on mechanical ventilation. Still on high doses of pressors. 09/07: Remains orally intubated on mechanical ventilation. On high doses of pressors Objective Vital Signs Date Time Temp Pulse Resp B/P Pulse Ox O2 Delivery O2 Flow Rate FiO2 09/07/16 16:34 100 30 09/07/16 16:00 87 09/07/16 12:00 97.8 16 98/58 Intake and Output 09/06/16 09/06/16 09/07/16 08:00 16:00 00:00 Intake Total 1362 ml 1279 ml 966 ml Output Total 2230 ml 2405 ml 1605 ml Balance -868 ml -1126 ml -639 ml Result Diagram: 09/07/1635409/07/16354 Objective Remarks GENERAL: Edematous SKIN: Warm HEAD: Normocephalic.. NECK: Supple, orally intubated. CARDIOVASCULAR: Irreg Irreg, no JVD. Rate 92 - 112 RESPIRATORY: Diffuse crackles. Tachypnea. Mechanical ventilation. Light wheezes, GASTROINTESTINAL: Abdomen soft, non-tender, nondistended. BS active. No guarding. MUSCULOSKELETAL: Tepid, legs marginally perfused. 3+ edema left, 1+ right leg. NEURO: Sedated, encephalopathic. Withdraws arms to pain. Orally intubated on mechanical ventilation Urinary Catheter: Yes A/P Problem List: (1) Hypovolemic shock ICD Code: R57.1 Status: Acute (2) Lower GI bleeding ICD Code: K92.2 Status: Acute (3) Anticoagulated ICD Code: Z79.01 Status: Acute (4) Acute kidney injury ICD Code: N17.9 Status: Acute (5) Anemia ICD Code: D64.9 Status: Acute Assessment and Plan GI bleed - left colon diverticular bleed - PPI BID - GI following - colonoscopy 08/22 w/o obvious source of bleed, - serial H&H -total transfusion 30 units - s/p subtotal colectomy. Anemia of blood loss - transfuse for hemodynamic instability - transfuse to keep Hg > 8 (recent ACS) - Transfused Total 30 units since GI bleed. -T&C 4 FFP, 1 platelets 09.03 CAD - hold anticoagulation due to acute hemorrhage - supportive care - hold all antiplatelet meds Respiratory failure - intubated for an airway protection - extubated 08/23 -Reintubated 09/01 for shock Hypotension - blood loss - volume replacement - cardiogenic component? - On Levophed, Neosynephrine, vasopressin, dobutamine REJI - volume loss - i.v. fluids resuscitation - monitor electrolytes and renal functions -now overloaded Atrial Fibrillation - rate controlled - resume home meds when hemodynamically stable, no anticoagulation - rate well controlled Diabetes - SSI for euglycemia - hold p.o. meds GERD - PPI DVT/GI prophylaxis - SCDs/PPI BID Acute arterial insufficiency left leg -S/P left iliac artery bypass -Threatened limb loss. Remains marginal. Overall impression: Hypovolemic shock for 3rd time in recent days -> to OR for subtotal colectomy. Remains in shock state. Remains critically ill and unstable , still requiring excessive vasopressor support and unable to wean ventilator. Patient would need tracheostomy if continued aggressive care desired. Discussed palliative care. Family does not wish to pursue aggressive measures and are deciding regarding possible de-escalation of therapy as they do not feel patient would want a tracheostomy. Critical Care 40 mins Problem Qualifiers (1) Anemia: Qualified Code: D62 - Acute posthemorrhagic anemia Joby Lopes MD Sep 07, 2016 16:59
[2016-09-07] MEDS: VASOPRESSIN INJ 40 UNITS in DEXTROSE 5% IN WATER 100ML INJ 98 ML IV SCH ×2 (17:44)
[2016-09-07] MEDS: PHENYLEPHRINE HCL 160 MG/D5W 484 ML ADMIX IV SCH ×2 (17:44)
--- NOTE | 2016-09-07 20:02 | MP ---
cc: AMAN PRAJAPATI DATE OF SURGERY 09/01/2016 PREOPERATIVE DIAGNOSIS 1. Recurrent lower GI bleed. 2. Hemorrhagic and cardiogenic shock. POSTOPERATIVE DIAGNOSIS 1. Recurrent lower GI bleed. 2. Hemorrhagic and cardiogenic shock. PROCEDURE 1. Exploratory laparotomy 2. Subtotal colectomy with end transverse colostomy for lower GI diverticular bleed. ANESTHESIA General ATTENDING SURGEON Aman Prajapati MD MEDICAL ASSISTANT OB GYN Staff FINDINGS A blood filled left colon. No blood in the descending and transverse colon, severe diverticular disease in the left colon, some mild coagulopathy, no other intra-abdominal pathology. BLOOD LOSS 400 cc INDICATIONS FOR PROCEDURE The patient is a 75-year-old male who has experienced two previous lower GI bleeds that had spontaneously stopped and was evaluated and thought to be diverticular in nature as the blood was only in the left side of the colon and clean on the right side. The patient underwent a procedure for treatment occlusive arterial disease of the lower extremities earlier today and at the end of the procedure, developed a recurrent third time massive blood per rectum with hypotension and shock. Gastroenterology discuss the case with interventional radiology and felt that this was unlikely to be managed with endoscopy or with catheter directed therapy and surgery was notified. The patient was brought to the operating room emergently for hemorrhagic shock due to lower GI bleed. PROCEDURE The patient is brought to the operating room from the intensive care unit bed in an unstable critical condition. The patient did have his abdomen was prepped and draped in a sterile fashion. Time-out was performed. The abdomen was entered through the midline incision below the xiphoid to above the pubis with a 10 blade scalpel. We used Bovie electrocautery to dissect the subcutaneous tissue and open the midline fascia for the full length of the incision. A Bookwalter retractor was placed for further dissection. We did note the left side of the colon was full of new blood. There was no intra-abdominal bleeding and the right side and transverse colon was free of blood. There was no other intra-abdominal pathology. At this point in time, I elected to perform a subtotal colectomy leaving him with his right side of his colon and part of his transverse colon into bleeding. We quickly identified the area distal to the middle colic artery and divided the colon at this point in time. We used a combination of stick ties and a LigaSure device to divide the mesentery of the transverse colon, splenic flexure and descending colon down to this splaying of the rectum. We did mobilize the splenic flexure with the LigaSure without difficulty. We also removed the majority of the patient's omentum. This was all passed off for permanent section. The distal portion of the colon was divided with a green load on a TA stapler at the splaying of the tinea. We did irrigate out the abdomen with approximately five liters of sterile saline until all suctioning was clear. We placed a 10-Arabic round Dom drain in the pelvis and brought this out through a separate stab incision and sutured this in place with a nylon suture. We did make our colostomy just to the left of the midline. We resected a circular portion of the skin and made a cruciate incision in the anterior and posterior rectus sheath and split the rectus muscles. We brought the end colostomy through this without difficulty. We then closed the midline fascia with a single #1 looped PDS suture. We matured the colostomy in [place] fashion quickly with just four corner stitches of 3-0 Vicryl's. An ostomy appliance was applied. Mala were placed in the midline. The bulb was placed to MANOLO suction. The patient was taken back to the Intensive Care Unit in critical condition. All counts were correct. I was present and scrubbed for the entire procedure. No apparent complications. The patient was critically ill throughout the procedure and was went through ongoing resuscitation by anesthesia throughout the procedure. The patient, at no point in time, coded, however, the patient did have some significant hypotension multiple times during the procedure which was treated with volume resuscitation with products as well as with vasoactive medications. MD JOI Begum/MAXIMUS /8:24 PM /7:50 PM
[2016-09-08] VITALS (9 sets, daily range): BP systolic 79–103; BP diastolic 55–62; PULSE 78–104; RESP 16–18; TEMP 97–98.7; O2SAT 99–100
[2016-09-08] MEDS: NOREPINEPHRINE INJ 16 MG in SODIUM CHLOR 0.9% 250 ML INJ 234 ML IV SCH ×2 (02:13→10:18)
[2016-09-08] MEDS: PROPOFOL 1000 MG/100 ML INJ 100 ML IV SCH ×3 (02:13→09:39)
[2016-09-08] MEDS: CHLORHEXIDINE GLUCONATE 2 % 1 PACK (2 CLOTHS) TOP SCH (03:34)
[2016-09-08] MEDS: metroNIDAZOLE 500 MG INJ 100 ML IV SCH (03:37)
[2016-09-08 05:26] LABS: AUTOMATED NEUTROPHIL # 10.2 TH/MM3 (1.8-7.7); BASOPHIL % 0.3 % (0.0-2.0); EOSINOPHIL # 0.1 TH/MM3 (0-0.4); EOSINOPHIL % 0.8 % (0.0-4.0); HEMATOCRIT 26.8 % (39.0-51.0); LYMPHOCYTE # 0.9 TH/MM3 (1.0-4.8); MEAN CELL VOLUME 87.4 FL (80.0-100.0); MEAN CORPUSCULAR HEMOGLOBIN 31.1 PG (27.0-34.0); MEAN CORPUSCULAR HGB CONC 35.5 % (32.0-36.0); MONO % 9.3 % (0.0-8.0); NEUT % 82.6 % (16.0-70.0); PLATELET COUNT 172 TH/MM3 (150-450); RED BLOOD COUNT 3.06 MIL/MM3 (4.50-5.90); RED CELL DISTRIBUTION WIDTH 16.3 % (11.6-17.2); WHITE BLOOD COUNT 12.3 TH/MM3 (4.0-11.0)
[2016-09-08 05:32] LABS: HEMO FLAGS AUTO DIFF
[2016-09-08] MEDS: PANTOPRAZOLE SODIUM 40 MG VIAL IV SCH (05:35)
[2016-09-08] MEDS: METOCLOPRAMIDE HCL 10 MG/2 ML VIAL IV PUSH SCH (05:36)
[2016-09-08 07:37] LABS: BANDS 2 % (0-6)
[2016-09-08 07:38] LABS: MYELOCYTES 3 % (0-0); NEUTROPHIL # MANUAL DIFF 11.1 TH/MM3 (1.8-7.7); POLYS (SEG NEUTROPHILS) 85 % (16-70); WBC DIFF SAMPLE 100
[2016-09-08 07:41] LABS: PLATELET ESTIMATE SMEAR NORMAL (NORMAL); PLATELET MORPHOLOGY NORMAL (NORMAL); SCAN/DIFF FINAL DIFF MANUAL
[2016-09-08] MEDS: SODIUM CHLORIDE 0.9% FLUSH 5 ML FLUSH IV FLUSH SCH (09:00)
[2016-09-08] MEDS: FUROSEMIDE 40 MG/4 ML VIAL IV PUSH SCH (09:40)
--- NOTE | 2016-09-08 10:32 | HHI.CCPN ---
Subjective Remarks/Hospital Course S/P extubation after hypovolemic shock from major lower GI bleed. He has received 12 units of blood and has now started actively bleeding again for the 3rd time in 72 hours. 08/25: Bled again last night, now stable. Tagged red cell study does not show a source. 08/26: Stable hemodynamics and Hgb, No bleeding. 08/31: Patient has now received 20 units of blood in transfusion. Exhaustive search for bleeding site has not revealed a source. Now patient has markedly decreased pulses left foot. 09/01: Threatened limb loss left leg due to acute arterial insufficiency. Discussed with Dr. Carty who has observed from arteriogram that patient has interrupted inflow at the left common iliac; thrombectomy not beneficial in the context of extensive pelvic collaterals and probably harmful. Patient started bleeding profusely from rectum, BRB. Systolic blood pressure dropped from 146 to 62 and patient became clammy, cool. Pulse to 132. Levophed started at 20 mics /min. After 4 units prbcs infused, levophed to 5 mics/min and SBP 118. P 102. He will be taken immediately to the OR now for colectomy. Most likely site is left/sigmoid colon. 09/02: Hypovolemic shock last night, hypotension persists. S/P subtotal colectomy now with SBP 55. Acid-base balance acceptable, peripheral perfusion marginal. Clearly still in shock. Excellent and aggressive volume and coag replacement overnight. 09/03: We have transfused 30 units but bleeding appears to have ceased after colectomy. 09/04: Bleeding has stopped after left colectomy, now recovering from shock state. 09/05: Remains orally intubated on mechanical ventilation on high-dose of pressors. 09/06: Remains orally intubated on mechanical ventilation. Still on high doses of pressors. 09/07: Remains orally intubated on mechanical ventilation. On high doses of pressors 09/08: clinically unchanged. on significant pressor support. family at bedside and request transition to comfort measures. Objective Vital Signs Date Time Temp Pulse Resp B/P Pulse Ox O2 Delivery O2 Flow Rate FiO2 09/08/16 08:06 100 30 09/08/16 08:00 89 09/08/16 08:00 97.0 16 99/58 Intake and Output 09/07/16 09/07/16 09/08/16 08:00 16:00 00:00 Intake Total 844 ml 857 ml 1131 ml Output Total 1770 ml 2810 ml 2925 ml Balance -926 ml -1953 ml -1794 ml Result Diagram: 09/08/16 0500 09/07/16 0355 Objective Remarks GENERAL: Edematous SKIN: Warm HEAD: Normocephalic.. NECK: Supple, orally intubated. CARDIOVASCULAR: Irreg Irreg, no JVD. Rate 92 - 112 RESPIRATORY: Diffuse crackles. Tachypnea. Mechanical ventilation. Light wheezes, GASTROINTESTINAL: Abdomen soft, non-tender, nondistended. BS active. No guarding. MUSCULOSKELETAL: Tepid, legs marginally perfused. 3+ edema left, 1+ right leg. NEURO: Sedated, encephalopathic. Withdraws arms to pain. Orally intubated on mechanical ventilation A/P Problem List: (1) Hypovolemic shock ICD Code: R57.1 Status: Acute (2) Lower GI bleeding ICD Code: K92.2 Status: Acute (3) Anticoagulated ICD Code: Z79.01 Status: Acute (4) Acute kidney injury ICD Code: N17.9 Status: Acute (5) Anemia ICD Code: D64.9 Status: Acute Assessment and Plan GI bleed - left colon diverticular bleed - PPI BID - GI following - colonoscopy 08/22 w/o obvious source of bleed, - serial H&H -total transfusion 30 units - s/p subtotal colectomy. Anemia of blood loss - transfuse for hemodynamic instability - transfuse to keep Hg > 8 (recent ACS) - Transfused Total 30 units since GI bleed. -T&C 4 FFP, 1 platelets 09.03 CAD - hold anticoagulation due to acute hemorrhage - supportive care - hold all antiplatelet meds Respiratory failure - intubated for an airway protection - extubated 08/23 -Reintubated 09/01 for shock Hypotension - blood loss - volume replacement - cardiogenic component? - On Levophed, Neosynephrine, vasopressin REJI - volume loss - i.v. fluids resuscitation - monitor electrolytes and renal functions -now overloaded Atrial Fibrillation - rate controlled - resume home meds when hemodynamically stable, no anticoagulation - rate well controlled Diabetes - SSI for euglycemia - hold p.o. meds GERD - PPI DVT/GI prophylaxis - SCDs/PPI BID Acute arterial insufficiency left leg -S/P left iliac artery bypass -Threatened limb loss. Remains marginal. Overall impression: very poor prognosis. 3 separate episodes of shock. given poor functional status pre-hospital, this is likely to be unsurvivable. family wishes to transition to comfort measures, and I agree with their assessment. plan for palliative extubation and transition to comfort. Problem Qualifiers (1) Anemia: Qualified Code: D62 - Acute posthemorrhagic anemia Alphonso Winkler MD Sep 08, 2016 10:32 Alphonso Winkler MD Sep 08, 2016 10:32
--- NOTE | 2016-09-08 11:12 | HHI.HCPN ---
Reason for visit a. To assist with evaluation and management of symptoms including:Pain ( generalized, and dyspnea). b. To assist medical decision maker(s) with: better understanding of current medical conditions; weighing benefits/burdens of medical treatment options; making medical treatment decisions. Subjective/Interval History The patient remains in shock, still on 3 pressor drugs, unresponsive. Remains on low-dose propofol. The family is coming in this morning, see below. Family/friend interactions I met in the consultation room with the patient's Sharon, son Sudheer, and grandson Jai. Additional family had arrived last night and had all met together to discuss what they thought the patient would want. It is clear to all of them that the patient would not want to be kept alive this way and that he would want to have the life support withdrawn and be allowed to naturally. This is particularly true in light of the patient's recent prior hospitalization, worsening weakness and debility, and recent failed rehabilitation. The patient's requests that we proceed with withdrawal and transition to comfort now. Advance Directives Living Will: Never completed Health Care Surrogate: Never completed Durable Power of Director Industrial Relations: Never completed Objective Vital Signs Date Time Temp Pulse Resp B/P Pulse Ox O2 Delivery O2 Flow Rate FiO2 09/08/16 08:06 100 30 09/08/16 08:00 30 09/08/16 08:00 89 09/08/16 08:00 97.0 89 16 99/58 100 09/08/16 06:00 86 09/08/16 04:00 89 09/08/16 04:00 30 09/08/16 04:00 98.7 89 16 103/60 100 09/08/16 03:45 100 30 09/08/16 02:00 93 09/08/16 00:00 30 09/08/16 00:00 98.4 78 18 102/62 100 09/08/16 00:00 97 09/07/16 22:15 100 30 09/07/16 22:00 81 09/07/16 20:00 30 09/07/16 20:00 88 09/07/16 20:00 98.6 88 16 101/64 100 09/07/16 19:17 100 30 09/07/16 18:00 90 09/07/16 16:34 100 30 09/07/16 16:00 87 09/07/16 16:00 98.6 87 16 105/64 100 09/07/16 16:00 30 09/07/16 14:00 90 09/07/16 12:05 100 30 09/07/16 12:00 82 09/07/16 12:00 97.8 82 16 98/58 100 09/07/16 12:00 30 Intake & Output 09/08/16 09/08/16 07:00 19:00 Intake Total 1935 ml Output Total 4940 ml Balance -3005 ml IV Total 1935 ml Output Urine Total 4200 ml Stool Total 40 ml Drainage Total 700 ml Physical Exam CONSTITUTIONAL/GENERAL: This is an adequately nourished patient, on ventilator, sedated. NECK: Trachea midline. Supple, nontender. No palpable thyroid enlargement or nodularity. CARDIOVASCULAR: Regular rate and rhythm without murmurs, gallops, or rubs. No JVD. Peripheral pulses symmetric. RESPIRATORY/CHEST: decrease breath sound bilaterally. GASTROINTESTINAL: Abdomen soft, non-tender, nondistended. No hepato-splenomegaly , or palpable masses. No guarding. Bowel sounds present. GENITOURINARY: Without palpable bladder distension. House catheter in place. MUSCULOSKELETAL: Lower and upper ext edematous. Pt have poor pulses bilaterally , discoloration of left leg. NEUROLOGICAL:sedated, much more comfortable. . Diagnostic Tests Laboratory Laboratory Tests Test 09/05/16 09/06/16 09/06/16 09/07/16 15:08 03:30 16:50 03:55 Sodium Level 124 MEQ/L 123 MEQ/L 122 MEQ/L 122 MEQ/L (136-145) (136-145) (136-145) (136-145) Potassium Level 3.3 MEQ/L 3.4 MEQ/L 3.3 MEQ/L 3.0 MEQ/L (3.5-5.1) (3.5-5.1) (3.5-5.1) (3.5-5.1) Chloride Level 92 MEQ/L 90 MEQ/L 88 MEQ/L 87 MEQ/L (98-107) (98-107) (98-107) (98-107) Carbon Dioxide Level 23.4 MEQ/L 24.2 MEQ/L 25.2 MEQ/L 24.5 MEQ/L (21.0-32.0) (21.0-32.0) (21.0-32.0) (21.0-32.0) Anion Gap 9 MEQ/L (5-15) 9 MEQ/L (5-15) 9 MEQ/L (5-15) 11 MEQ/L (5-15) Blood Urea Nitrogen 11 MG/DL (7-18) 11 MG/DL (7-18) 11 MG/DL (7-18) 10 MG/DL (7- 18) Creatinine 1.08 MG/DL 1.08 MG/DL 1.04 MG/DL 1.05 MG/DL (0.60-1.30) (0.60-1.30) (0.60-1.30) (0.60-1.30) Estimat Glomerular Filtration 67 ML/MIN (>89) 67 ML/MIN (>89) 70 ML/MIN (>89) 69 ML/MIN (>89) Rate Random Glucose 168 MG/DL 143 MG/DL 150 MG/DL 127 MG/DL (74-106) (74-106) (74-106) (74-106) Calcium Level 6.1 MG/DL 6.1 MG/DL 6.3 MG/DL 6.4 MG/DL (8.5-10.1) (8.5-10.1) (8.5-10.1) (8.5-10.1) Protein Corrected Calcium 7.7 MG/DL 7.8 MG/DL 7.9 MG/DL 7.9 MG/DL (8.5-10.1) (8.5-10.1) (8.5-10.1) (8.5-10.1) Magnesium Level 1.7 MG/DL 1.5 MG/DL 1.3 MG/DL 1.3 MG/DL (1.5-2.5) (1.5-2.5) (1.5-2.5) (1.5-2.5) Total Protein 3.8 GM/DL 3.7 GM/DL 4.0 GM/DL 4.1 GM/DL (6.4-8.2) (6.4-8.2) (6.4-8.2) (6.4-8.2) White Blood Count 8.5 TH/MM3 11.8 TH/MM3 (4.0-11.0) (4.0-11.0) Red Blood Count 2.71 MIL/MM3 2.97 MIL/MM3 (4.50-5.90) (4.50-5.90) Hemoglobin 8.4 GM/DL 9.1 GM/DL (13.0-17.0) (13.0-17.0) Hematocrit 23.3 % 25.8 % (39.0-51.0) (39.0-51.0) Mean Corpuscular Volume 86.3 FL 86.8 FL (80.0-100.0) (80.0-100.0) Mean Corpuscular Hemoglobin 31.2 PG 30.5 PG (27.0-34.0) (27.0-34.0) Mean Corpuscular Hemoglobin 36.2 % 35.1 % Concent (32.0-36.0) (32.0-36.0) Red Cell Distribution Width 16.4 % 16.6 % (11.6-17.2) (11.6-17.2) Platelet Count 89 TH/MM3 145 TH/MM3 (150-450) (150-450) Mean Platelet Volume 9.2 FL 9.1 FL (7.0-11.0) (7.0-11.0) Neutrophils (%) (Auto) 83.0 % 82.9 % (16.0-70.0) (16.0-70.0) Lymphocytes (%) (Auto) 6.8 % 6.0 % (9.0-44.0) (9.0-44.0) Monocytes (%) (Auto) 6.9 % (0.0-8.0) 8.6 % (0.0-8.0) Eosinophils (%) (Auto) 2.5 % (0.0-4.0) 1.6 % (0.0-4.0) Basophils (%) (Auto) 0.8 % (0.0-2.0) 0.9 % (0.0-2.0) Neutrophils # (Auto) 7.0 TH/MM3 9.8 TH/MM3 (1.8-7.7) (1.8-7.7) Lymphocytes # (Auto) 0.6 TH/MM3 0.7 TH/MM3 (1.0-4.8) (1.0-4.8) Monocytes # (Auto) 0.6 TH/MM3 1.0 TH/MM3 (0-0.9) (0-0.9) Eosinophils # (Auto) 0.2 TH/MM3 0.2 TH/MM3 (0-0.4) (0-0.4) Basophils # (Auto) 0.1 TH/MM3 0.1 TH/MM3 (0-0.2) (0-0.2) CBC Comment AUTO DIFF AUTO DIFF Differential Comment AUTO DIFF AUTO DIFF CONFIRMED CONFIRMED Platelet Estimate LOW (NORMAL) LOW (NORMAL) Platelet Morphology Comment NORMAL NORMAL (NORMAL) (NORMAL) Keratocytes OCC (NORMAL) Test 09/08/16 05:00 White Blood Count 12.3 TH/MM3 (4.0-11.0) Red Blood Count 3.06 MIL/MM3 (4.50-5.90) Hemoglobin 9.5 GM/DL (13.0-17.0) Hematocrit 26.8 % (39.0-51.0) Mean Corpuscular Volume 87.4 FL (80.0-100.0) Mean Corpuscular Hemoglobin 31.1 PG (27.0-34.0) Mean Corpuscular Hemoglobin 35.5 % Concent (32.0-36.0) Red Cell Distribution Width 16.3 % (11.6-17.2) Platelet Count 172 TH/MM3 (150-450) Mean Platelet Volume 9.1 FL (7.0-11.0) Neutrophils (%) (Auto) 82.6 % (16.0-70.0) Lymphocytes (%) (Auto) 7.0 % (9.0-44.0) Monocytes (%) (Auto) 9.3 % (0.0-8.0) Eosinophils (%) (Auto) 0.8 % (0.0-4.0) Basophils (%) (Auto) 0.3 % (0.0-2.0) Neutrophils # (Auto) 10.2 TH/MM3 (1.8-7.7) Lymphocytes # (Auto) 0.9 TH/MM3 (1.0-4.8) Monocytes # (Auto) 1.1 TH/MM3 (0-0.9) Eosinophils # (Auto) 0.1 TH/MM3 (0-0.4) Basophils # (Auto) 0.0 TH/MM3 (0-0.2) CBC Comment AUTO DIFF Differential Total Cells 100 Counted Neutrophils % (Manual) 85 % (16-70) Band Neutrophils % 2 % (0-6) Lymphocytes % 4 % (9-44) Monocytes % 6 % (0-8) Neutrophils # (Manual) 11.1 TH/MM3 (1.8-7.7) Myelocytes 3 % (0-0) Differential Comment FINAL DIFF MANUAL Platelet Estimate NORMAL (NORMAL) Platelet Morphology Comment NORMAL (NORMAL) Basophilic Stippling FAINT (NORMAL) Result Diagram: 09/08/16 0500 09/07/16 3404 Assessment and Plan Disease Oriented Problem List: (1) Respiratory failure (2) Lower GI bleeding Comment: s/p colectomy (3) Hypovolemic shock (4) Anemia (5) Acute kidney injury (6) CHF (congestive heart failure) (7) Ischemic leg Symptom Scale: (1) Dyspnea 0-10 Scale: Unable to quantify (2) Encephalopathy 0-10 Scale: Unable to quantify (3) Pain 0-10 Scale: Unable to quantify Comment: ischemic leg, but generalized pain. s/p surgery etc... Pertinent Non-Medical Issues Psychosocial: Spiritual: Legal: The patient lacks capacity for decision-making and he will not regain that capacity. His is the proxy decision-maker. Ethical issues impacting care: None. ,. Important Contacts Spouse: Sobeida Kovacs [phone] . Prognosis 75 year old with cardiac disease, came in with GI bleed. Profound, persistent shock and respiratory failure. Prognosis appears very poor. . Code Status: Full Code Plan == DO NOT RESUSCITATE == Capacity- the patient is less responsive now and does not have capacity for decision making; his is the proxy decision-maker. == HCP= , under [place] Statutes. I do not see any other HCS designated. == GOALS: 09/08/16: I met in the consultation room with the patient's Sharon, son Sudheer, and grandson Jai. Additional family had arrived last night and had all met together to discuss what they thought the patient would want. It is clear to all of them that the patient would not want to be kept alive this way and that he would want to have the life support withdrawn and be allowed to naturally. This is particularly true in light of the patient's recent prior hospitalization, worsening weakness and debility, and recent failed rehabilitation. The patient's requests that we proceed with withdrawal and transition to comfort now. == SYMPTOMS: These will be managed with the medications used for the withdrawal process. == Palliative care will continue to follow the patient during this hospitalization. . Time Spent Total Floor Time (mins): 45 Face to Face Time (mins): 25 >50% Counseling/Coord of Care: Yes (d/w Dr. Winkler) Attestation To help prompt me to consider important information that might be impacting today's encounter and assessment, information from prior notes written by myself or my colleagues may have been "brought forward" into today's note. My signature on this note, however, is an attestation that I personally performed the exam, history, and/or decision-making noted today, and, unless otherwise indicated, the interactions with patient, family, and staff as well as the review of records all occurred today. I also attest that the listed assessment and stated plan reflect my best clinical judgment today based on the combination of historical information, prior notes, and today's exam/ interactions. When time spent is documented, it refers only to time spent today by the signer, or if indicated, combined time spent today by collaborating physician/nurse practitioner. Jenny Rios MD Sep 08, 2016 11:12
[2016-09-08] MEDS ORDERED: MORPHINE SULFATE 8 MG/ML INJ IV PUSH ONE (11:15)
[2016-09-08] MEDS ORDERED: LORazepam 2 MG/ML VIAL IV ONE ×2 (11:15→11:30)
[2016-09-08] MEDS ORDERED: HYOSCYAMINE 0.5 MG/ML AMP IV ONE (11:15)
[2016-09-08] MEDS ORDERED: MORPHINE SULFATE 4 MG/ML INJ IV ONE (11:30)
[2016-09-08] MEDS ORDERED: MORPHINE SULFATE 4 MG/ML INJ IV PRN (11:45)
[2016-09-08] MEDS ORDERED: ACETAMINOPHEN 650 MG SUPP PR PRN (11:45)
[2016-09-08] MEDS ORDERED: HYOSCYAMINE 0.5 MG/ML AMP IV PRN (11:45)
[2016-09-08] MEDS ORDERED: LORazepam 2 MG/ML VIAL IV PRN ×2 (11:45)
[2016-09-08] MEDS ORDERED: BISACODYL 10 MG SUPP PR PRN (11:45)
[2016-09-08] MEDS ORDERED: FUROSEMIDE 20 MG/2 ML VIAL IV PRN (11:45)
[2016-09-08] MEDS ORDERED: LORazepam 2 MG/ML VIAL IVS PRN (11:45)
[2016-09-08] MEDS ORDERED: MORPHINE SULFATE 8 MG/ML INJ IV PUSH PRN (11:45)
[2016-09-08] MEDS ORDERED: MORPHINE SULFATE 4 MG/ML INJ IV SCH (12:00)
[2016-09-08] MEDS ORDERED: LORazepam 2 MG/ML VIAL IV SCH (12:00)
--- NOTE | 2016-09-08 22:35 | MP ---
cc: AMAN PRAJAPATI duplicate MD JOI Begum/CAIN /10:30 PM /10:11 PM MTDD
--- NOTE | 2016-10-18 13:14 | RADRPT ---
EXAM DATE/TIME: 08/31/2016 15:27 CORRECTION Corrected on: October 18, 2016; corrected exam name ADITYA COMPARISON: No previous studies available for comparison. INDICATIONS : Diminished arterial pulses, decrease temperature in left leg and swelling. MEDICAL HISTORY : Congestive heart failure. Myocardial infarction. Hypercholesterolemia. A-Fib. Coronary artery disease . Hypertension. GERD. Melena. Gout. Diabetes. SURGICAL HISTORY : Appendectomy. ENCOUNTER: Initial ACUITY: 1 day PAIN SCORE: Nonresponsive. LOCATION: Bilateral legs. AREA EVALUATED: Bilateral legs. 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 There is reconstitution d istally. CT angiography of the abdominal aorta and lower extremities is recommended for further evaluation if clinically indicated. Vasu Montanez MD on August 31, 2016 at 18:07 Board Certified Radiologist. This report was verified electronically. DR Mckeon on October 18, 2016 at 13:13 Board Certified Radiologist. This report was verified electronically.
--- NOTE | 2016-10-31 14:58 | HHI.DS ---
Summary Note Date of : Sep 08, 2016 Time Of : 1654 Admission Date Aug 21, 2016 at 04:35 Admitting Diagnosis GI bleed, Hypovolemic shock Diagnosis at Time of : Brief History 75-year-old male presents emergency department for complaints of blood in the stool. alf staff have found approximately "750 mg" of blood and clots in his diaper. Patient is on Xarelto. He was just discharged from a [place] hospital facility after a heart attack and had just arrived in the residential yesterday for rehabilitation. Patient is altered with some mild confusion. Imaging Last Impressions Chest X-Ray 09/02/16 0000 Signed Impressions: Service Date/Time: August 06:18 - CONCLUSION: Increasing bibasilar infiltrates, right greater than left. 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 There is reconstitution distally. CT angiography of the abdominal aorta and lower extremities is recommended for further evaluation if clinically indicated. 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 There is reconstitution distally. CT angiography of the abdominal aorta and lower extremities is recommended for further evaluation if clinically indicated. Vasu Montanez MD Foot X-Ray 08/29/16 0000 Signed Impressions: Service Date/Time: Monday, August 29, 2016 15:17 - CONCLUSION: No acute abnormality is seen. There is chronic change as described above. Uziel Cooper MD Ankle X-Ray 08/29/16 0000 Signed Impressions: Service Date/Time: Monday, August 29, 2016 15:04 - CONCLUSION: 1. Soft-tissue swelling at the ankle without a fracture seen. 2. 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 Uziel Cooper MD Abdominal Angiography 08/28/16 0000 Signed Impressions: Service Date/Time: Sunday, August 28, 2016 17:58 - CONCLUSION: 1. 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 2. The bypass of course excludes access to the origin of the ZACHARY. 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 3. No active hemorrhage identified in the celiac or SMA. Ephraim Garcia MD GI Bleed Scan Nuclear Medicine 08/24/16 0000 Signed Impressions: Service Date/Time: Wednesday, August 24, 2016 14:53 - CONCLUSION: A GI bleed is not seen. Uziel Cooper MD Hospital Course S/P extubation after hypovolemic shock from major lower GI bleed. He has received 12 units of blood and has now started actively bleeding again for the 3rd time in 72 hours. 08/25: Bled again last night, now stable. Tagged red cell study does not show a source. 08/26: Stable hemodynamics and Hgb, No bleeding. 08/31: Patient has now received 20 units of blood in transfusion. Exhaustive search for bleeding site has not revealed a source. Now patient has markedly decreased pulses left foot. 09/01: Threatened limb loss left leg due to acute arterial insufficiency. Discussed with Dr. Carty who has observed from arteriogram that patient has interrupted inflow at the left common iliac; thrombectomy not beneficial in the context of extensive pelvic collaterals and probably harmful. Patient started bleeding profusely from rectum, BRB. Systolic blood pressure dropped from 146 to 62 and patient became clammy, cool. Pulse to 132. Levophed started at 20 mics /min. After 4 units prbcs infused, levophed to 5 mics/min and SBP 118. P 102. He will be taken immediately to the OR now for colectomy. Most likely site is left/sigmoid colon. 09/02: Hypovolemic shock last night, hypotension persists. S/P subtotal colectomy now with SBP 55. Acid-base balance acceptable, peripheral perfusion marginal. Clearly still in shock. Excellent and aggressive volume and coag replacement overnight. 09/03: We have transfused 30 units but bleeding appears to have ceased after colectomy. 09/04: Bleeding has stopped after left colectomy, now recovering from shock state. 09/05: Remains orally intubated on mechanical ventilation on high-dose of pressors. 09/06: Remains orally intubated on mechanical ventilation. Still on high doses of pressors. 09/07: Remains orally intubated on mechanical ventilation. On high doses of pressors 09/08: clinically unchanged. on significant pressor support. family at bedside and request transition to comfort measures. The patient, despite maximal medical therapy, continued to decline. The family requested a transition to comfort measures which was successfully done and the patient comfortably on 09/08 at 16:54 Alphonso Winkler MD Oct 31, 2016 14:58
== END 2016-09-08 18:10 | disposition expired | DRG 329 ==
LOC: NEPC 02:59 → NEDA 04:35 → N03B 08:49
PROVIDERS: ADMIT Hospitalist; ATTEND Hospitalist
PROC: 30233N1 Transfusion of Nonautologous Red Blood Cells into Peripheral Vein, Percutaneous Approach (ICD-10-PCS; 2016-08-21)
PROC: 0DJD8ZZ Inspection of Lower Intestinal Tract, Via Natural or Artificial Opening Endoscopic (ICD-10-PCS; 2016-08-22)
PROC: 0BH17EZ Insertion of Endotracheal Airway into Trachea, Via Natural or Artificial Opening (ICD-10-PCS; 2016-08-22)
PROC: 5A1935Z Respiratory Ventilation, Less than 24 Consecutive Hours (ICD-10-PCS; 2016-08-22)
PROC: 0DJ08ZZ Inspection of Upper Intestinal Tract, Via Natural or Artificial Opening Endoscopic (ICD-10-PCS; 2016-08-30)
PROC: 0DJD8ZZ Inspection of Lower Intestinal Tract, Via Natural or Artificial Opening Endoscopic (ICD-10-PCS; 2016-08-30)
PROC: 0D1L0Z4 Bypass Transverse Colon to Cutaneous, Open Approach (ICD-10-PCS; 2016-09-01)
PROC: 0DBS0ZZ (ICD-10-PCS; 2016-09-01)
PROC: 0DBT0ZZ (ICD-10-PCS; 2016-09-01)
PROC: 0WJP0ZZ Inspection of Gastrointestinal Tract, Open Approach (ICD-10-PCS; 2016-09-01)
PROC: 0WJJ0ZZ Inspection of Pelvic Cavity, Open Approach (ICD-10-PCS; 2016-09-01)
PROC: 0DTM0ZZ Resection of Descending Colon, Open Approach (ICD-10-PCS; 2016-09-01)
PROC: 02HV33Z Insertion of Infusion Device into Superior Vena Cava, Percutaneous Approach (ICD-10-PCS; 2016-09-01)
PROC: 03HB33Z Insertion of Infusion Device into Right Radial Artery, Percutaneous Approach (ICD-10-PCS; 2016-09-01)
PROC: 30233K1 Transfusion of Nonautologous Frozen Plasma into Peripheral Vein, Percutaneous Approach (ICD-10-PCS; 2016-09-01)
PROC: 30233R1 Transfusion of Nonautologous Platelets into Peripheral Vein, Percutaneous Approach (ICD-10-PCS; 2016-09-01)
PROC: 0DBL0ZZ Excision of Transverse Colon, Open Approach (ICD-10-PCS; principal; 2016-09-01 18:00)
PROC: 5A1955Z Respiratory Ventilation, Greater than 96 Consecutive Hours (ICD-10-PCS; 2016-09-01 18:00)
PROC: 03HY32Z Insertion of Monitoring Device into Upper Artery, Percutaneous Approach (ICD-10-PCS; 2016-09-02)
PROC: 4A133B1 Monitoring of Arterial Pressure, Peripheral, Percutaneous Approach (ICD-10-PCS; 2016-09-02)
PROC: 4A133J1 Monitoring of Arterial Pulse, Peripheral, Percutaneous Approach (ICD-10-PCS; 2016-09-02)
PROC: 05HN33Z Insertion of Infusion Device into Left Internal Jugular Vein, Percutaneous Approach (ICD-10-PCS; 2016-09-02)
DX: K57.31 Diverticulosis of large intestine without perforation or abscess with bleeding (principal); I21.3 ST elevation (STEMI) myocardial infarction of unspecified site; J96.90 Respiratory failure, unspecified, unspecified whether with hypoxia or hypercapnia; R57.1 Hypovolemic shock; R57.0 Cardiogenic shock; N17.9 Acute kidney failure, unspecified; G93.40 Encephalopathy, unspecified; R18.8 Other ascites; E87.0 Hyperosmolality and hypernatremia; D62 Acute posthemorrhagic anemia; T82.858A Stenosis of other vascular prosthetic devices, implants and grafts, initial encounter; E87.1 Hypo-osmolality and hyponatremia; J44.9 Chronic obstructive pulmonary disease, unspecified; I48.91 Unspecified atrial fibrillation; I50.9 Heart failure, unspecified; I25.10 Atherosclerotic heart disease of native coronary artery without angina pectoris; E78.00 Pure hypercholesterolemia, unspecified; H91.90 Unspecified hearing loss, unspecified ear; I10 Essential (primary) hypertension; K21.9 Gastro-esophageal reflux disease without esophagitis; M10.9 Gout, unspecified; E11.9 Type 2 diabetes mellitus without complications; Z95.1 Presence of aortocoronary bypass graft; Z82.49 Family history of ischemic heart disease and other diseases of the circulatory system; E66.9 Obesity, unspecified; K62.1 Rectal polyp; Y71.8 Miscellaneous cardiovascular devices associated with adverse incidents, not elsewhere classified; Z51.5 Encounter for palliative care; Z66 Do not resuscitate; E87.6 Hypokalemia
CPT/HCPCS: 31500; 36245; 36430; 36556; 36600; 71010; 73600; 73630; 75726; 75774; 76882; 76937; 78278; 80048; 80053; 81001; 82140; 82570; 82805; 83605; 83690; 83735; 83880; 83935; 84100; 84132; 84155; 84300; 85007; 85014; 85018; 85025; 85027; 85384; 85610; 85730; 86850; 86900; 86901; 86920; 86927; 86965; 87205; 87641; 88307; 88309; 88311; 93005; 93925; 94002; 94003; 94150; 94640; 94664; 99152; 99153; A9560; C1760; C1769; C1887; C1894; C9113; C9399; G0269; J0171; J0461; J0610; J1250; J1940; J1980; J2060; J2250; J2270; J2370; J2405; J2765; J2997; J3010; J3370; J3475; J3480; J7030; J7050; J7060; J7070; J7120; P9016; P9017; P9035; P9045; Q9967